=== PATIENT | female | born 1990 | race Caucasian/White ===

== ENCOUNTER 2022-10-13 19:56 | Inpatient (IN) ==
--- NOTE | 2022-10-13 21:53 | Emergency Department Note ---
Impression & Plan Altered mental status, Anemia ED Provider Note ED Provider Note NAME: ELVIRA VILLANUEVA AGE:31 SEX: Female : 1990 ARRIVES VIA: EMS INFORMANT: Patient ED PROVIDER(s): Christine Omalley DO CHIEF COMPLAINT: Altered mental status HPI: This is a 31-year-old female who presents emergency department via EMS after being referred here from the [facility] due to concern for persistent altered mental status. Patient is on multiple medications according to mom. Records from the [facility] states she was given Haldol and Ativan yesterday afternoon. Mother states she has had worsening altered mentation over the course of the last month. Patient answers questions with "game over". She denies pain or headache. PAST MEDICAL HISTORY:See Below PAST SURGICAL HISTORY:See Below FAMILY HISTORY:See Below SOCIAL HISTORY:See Below HOME MEDICATIONS:See Below ALLERGIES:See Below VITALS:See Below PHYSICAL EXAMINATION: GENERAL: alert, well nourished, no distress, non-toxic EYE EXAM: normal conjunctiva, PERRL and EOM's grossly intact OROPHARYNX: no exudate, no erythema, lips, buccal mucosa, and tongue normal and mucous membranes are moist NECK: supple, no nuchal rigidity, no adenopathy, non-tender LUNGS: Clear to auscultation. Normal chest wall mechanics, no w/r/r HEART: no murmurs, S1 normal and S2 normal ABDOMEN: abdomen soft, non-tender, normo-active bowel sounds, no masses, no rebound or guarding. BACK: Back is symmetrical on inspection and there is no deformity, no midline tenderness, no CVA tenderness. SKIN: no rashes, petechiae, orbruising UPPER EXTREMITIES: upper extremities are grossly normal. FROM, nml pulses b/l. LOWER EXTREMITIES: No pitting edema. FROM, nml pulses b/l. NEURO EXAM: cranial nerves II-XII grossly intact, normal speech, no facial droop,nogross weakness of arms, no gross weakness of legs. Gross sensation intact. No ataxia. Confused, pacing. Vital Signs: reviewed and remarkable Differential Diagnosis: Differential diagnoses includes but is not limited to toxic, metabolic, infectious, traumatic, cardiac, neurologic, hematologic, psychiatric and inflammatory etiologies. MEDICAL DECISION MAKING: This is a 31-year-old female referred here from the [facility] psychiatric facility due to concern for persistent confusion/altered mental status. Patient currently participating in inpatient mental health treatment at their facility. Patient here is obviously confused, mother concerned due to deterioration of her symptoms more recently as well as additional changes to medications. Labs drawn and sent, IV established, EKG performed and interpreted by me at bedside. Patient sent for CT head which was reassuring. Patient frequently attempting to leave her room, and was noted to have an abnormal and slightly shuffled gait. Patient would not otherwise follow commands for additional neuro testing. No signs or symptoms to suggest acute infection. Given consideration for poly pharmacy and ADRs of several of her medications, case discussed with hospitalist for additional inpatient evaluation and management with need for ongoing psychiatric treatment additionally. At this time of low suspicion for occult PROFESSIONAL SERVICES MANAGER infection, CVA, or ICH. Consultation(s): [] ER Treatment Provided: See below Diagnostics Interpreted By Me: -ECG: Normal sinus at 97, normal axis, normal intervals, nonspecific ST/T wave changes -Cardiac Monitoring: An order was placed for continuous cardiac monitoring. The monitor shows a rate of 88 with normal sinus rhythm. -Laboratory studies: As stated above and show below. -Imaging studies: CT head informally reviewed by me without any obvious intracranial hemorrhage Triage Nursing Note Reviewed Prior/Outside Records Reviewed -reviewed records from the rushing that accompanied patient Past Med/Surg History Social History Smoking Status: Never smoker Tobacco Type: Cigarettes Hx Alcohol Use: Yes Hx Substance Use: No Preferred Language: Indonesian Communication Ability: Impaired Regional Sales Director Required: No Beliefs That Will Affect Care: None Current Living Situation: Alone Feels Safe at Home: Yes Gender Identity: Female Allergies Allergies Allergy/AdvReac Type Severity Reaction Status Date / Time No Known Drug Allergies Allergy Unknown Verified 10/14/22 01:45 No Known Food Allergies Allergy Unknown Verified 10/14/22 01:45 Home Meds Home Medications Medication Instructions Recorded Confirmed acetaminophen 650 mg tablet 650 mg PO Q6H PRN Pain 10/14/22 10/14/22 levetiracetam 1,000 mg tablet 1,000 mg PO HS 10/14/22 10/14/22 risperidone 4 mg tablet 4 mg PO BID 10/14/22 10/14/22 trazodone 50 mg tablet 50 mg PO HS 10/14/22 10/14/22 venlafaxine 150 mg 150 mg PO DAILY 10/14/22 10/14/22 capsule,extended release 24 hr Results & Data (ED) Vital Signs Vital Signs - 24 hr 10/13/22 20:01 Temperature 37.1 C Temperature Source Oral Pulse Rate 73 Respiratory Rate 18 Respiratory Effort / Characteristics Non-Labored Respiratory Depth Normal Respiratory Pattern Regular Blood Pressure 163/113 H Blood Pressure Mean 129 Blood Pressure Position Lying Pulse Oximetry 95 Oxygen Delivery Method Room Air Sepsis Recent Fever Within 48 Hours No Sepsis New/Unexplained Change in Mental Status N/A Sepsis Action Taken by Nursing No Action Required Laboratory Data 10/13/22 21:58 10/13/22 21:58 Lab Results 10/13/22 10/13/22 10/13/22 Range/Units 21:58 21:58 21:58 WBC 7.16 (4.8-10.8) K/ul RBC 4.10 L (4.20-5.40) M/uL Hgb 9.5 L (12.0-16.0) g/dl Hct 29.9 L (37.0-47.0) % MCV 72.9 L (80.0-100.0) fL MCH 23.2 L (25.0-34.0) pg MCHC 31.8 L (32.0-36.0) g/dL RDW Std Deviation 40.9 (36.4-46.3) fL RDW Coeff of Neris 15.5 H (11.5-14.5) % Plt Count 405 H (130-400) K/uL MPV 9.4 (9.4-12.4) fL Immature Gran % (Auto) 0.4 % Neut % (Auto) 73.7 % Lymph % (Auto) 17.7 % Yell % (Auto) 6.8 % Eos % (Auto) 0.8 % Baso % (Auto) 0.6 % Neut # (Auto) 5.27 (1.40-6.50) K/uL Lymph # (Auto) 1.27 (1.2-3.4) K/uL Yell # (Auto) 0.49 (0.11-0.59) K/uL Eos # (Auto) 0.06 (0-0.50) K/uL Baso # (Auto) 0.04 (0-0.2) K/uL Immature Gran # (Auto) 0.03 (0.01-0.20) K/uL PT 10.8 (9.0-12.0) Seconds INR 1.0 (0.9-1.1) APTT 27.4 (21.0-31.0) Seconds PTT Ratio 1.0 Sodium 136 (136-145) mmol/L Potassium 3.7 (3.5-5.1) mmol/L Chloride 104 (98-107) mmol/L Carbon Dioxide 23 (21-32) mmol/L Anion Gap 9 (3-11) BUN 7 (6-23) mg/dl Creatinine 0.45 L (0.6-1.2) mg/dl Est Cr Clr Drug Dosing 176.7 ml/min Est GFR ( Amer) > 150.0 ml/min Est GFR (Non-Af Amer) 133.5 ml/min BUN/Creatinine Ratio 15.6 (10-20) Glucose 114 H (70-99(Fasting)) mg/dl Calcium 9.7 (8.6-10.3) mg/dl Magnesium 1.7 (1.7-2.4) mg/dl Total Bilirubin 0.3 (0.2-1.0) mg/dl AST 20 (13-39) U/L ALT 28 (7-52) U/L Alkaline Phosphatase 56 (34-104) U/L Troponin I High Sens 2.9 (0-14) pg/ml Total Protein 7.4 (6.0-8.3) gm/dl Albumin 4.5 (3.4-5.0) gm/dl Globulin 2.9 (2.5-4.0) gm/dl Albumin/Globulin Ratio 1.6 (0.9-2) TSH (0.300-4.500) uIu/ml Salicylates (3.0-30) mg/dl Ethyl Alcohol mg/dL (<10.0) mg/dl 10/13/22 10/13/22 10/13/22 Range/Units 21:58 21:58 21:58 WBC (4.8-10.8) K/ul RBC (4.20-5.40) M/uL Hgb (12.0-16.0) g/dl Hct (37.0-47.0) % MCV (80.0-100.0) fL MCH (25.0-34.0) pg MCHC (32.0-36.0) g/dL RDW Std Deviation (36.4-46.3) fL RDW Coeff of Neris (11.5-14.5) % Plt Count (130-400) K/uL MPV (9.4-12.4) fL Immature Gran % (Auto) % Neut % (Auto) % Lymph % (Auto) % Yell % (Auto) % Eos % (Auto) % Baso % (Auto) % Neut # (Auto) (1.40-6.50) K/uL Lymph # (Auto) (1.2-3.4) K/uL Yell # (Auto) (0.11-0.59) K/uL Eos # (Auto) (0-0.50) K/uL Baso # (Auto) (0-0.2) K/uL Immature Gran # (Auto) (0.01-0.20) K/uL PT (9.0-12.0) Seconds INR (0.9-1.1) APTT (21.0-31.0) Seconds PTT Ratio Sodium (136-145) mmol/L Potassium (3.5-5.1) mmol/L Chloride (98-107) mmol/L Carbon Dioxide (21-32) mmol/L Anion Gap (3-11) BUN (6-23) mg/dl Creatinine (0.6-1.2) mg/dl Est Cr Clr Drug Dosing ml/min Est GFR ( Amer) ml/min Est GFR (Non-Af Amer) ml/min BUN/Creatinine Ratio (10-20) Glucose (70-99(Fasting)) mg/dl Calcium (8.6-10.3) mg/dl Magnesium (1.7-2.4) mg/dl Total Bilirubin (0.2-1.0) mg/dl AST (13-39) U/L ALT (7-52) U/L Alkaline Phosphatase (34-104) U/L Troponin I High Sens (0-14) pg/ml Total Protein (6.0-8.3) gm/dl Albumin (3.4-5.0) gm/dl Globulin (2.5-4.0) gm/dl Albumin/Globulin Ratio (0.9-2) TSH 1.425 (0.300-4.500) uIu/ml Salicylates < 3.0 L (3.0-30) mg/dl Ethyl Alcohol mg/dL < 10.0 (<10.0) mg/dl Administered Medications Acetaminophen (Acetaminophen 325 Mg Tab) 650 mg PO Q4H PRN PRN Reason: Pain or Fever Stop: 11/13/22 06:08 Last Admin: 10/14/22 20:10 Dose: 650 mg Documented By: MT Olanzapine (Olanzapine Zydis 5 Mg Orally Dis. Tab) 5 mg PO BID JANEEN Stop: 11/13/22 20:59 Last Admin: 10/14/22 21:55 Dose: 5 mg Documented By: MT Propranolol HCl (Propranolol Hcl 10 Mg Tab) 10 mg PO BID JANEEN Stop: 11/13/22 20:59 Last Admin: 10/14/22 21:55 Dose: 10 mg Documented By: MT Discontinued Medications Clonazepam (Clonazepam 1 Mg Tab) 1 mg PO NOW STA Stop: 10/14/22 01:52 Last Admin: 10/14/22 01:54 Dose: 1 mg Documented By: GUERO Cyclobenzaprine HCl (Cyclobenzaprine Hcl 5 Mg Tab) 5 mg PO NOW STA Stop: 10/15/22 01:31 Last Admin: 10/15/22 01:56 Dose: 5 mg Documented By: MT Miscellaneous Information (Patient's Allergy Info Needs Entered) 1 each N/A Q30M [facility] Stop: 11/13/22 00:00 Last Admin: 10/14/22 09:29 Dose: Not Given Documented By: MT(2) Admin: 10/14/22 02:40 Dose: Not Given Documented By: Admin: 10/14/22 01:55 Dose: 1 each Documented By: Admin: 10/14/22 01:43 Dose: 1 each Documented By: GUERO Olanzapine (Olanzapine 10 Mg/2.1 Ml Sdv) 2.5 mg IM NOW STA Stop: 10/14/22 02:41 Last Admin: 10/14/22 02:58 Dose: Not Given Documented By: GUERO Olanzapine (Olanzapine 10 Mg/2.1 Ml Sdv) Confirm Administered Dose 10 mg IM .STK-MED ONE Stop: 10/14/22 02:47 Last Admin: 10/14/22 02:54 Dose: 2.5 mg Documented By: GUERO Olanzapine (Olanzapine 5 Mg Tablet) 5 mg PO BID JANEEN Stop: 11/13/22 09:29 Last Admin: 10/14/22 09:36 Dose: 5 mg Documented By: MT(2) Risperidone (Risperidone 2 Mg Tablet) 4 mg PO BID [facility] Stop: 11/13/22 08:59 Last Admin: 10/14/22 09:29 Dose: Not Given Documented By: MT(2) Venlafaxine HCl (Venlafaxine Hcl Xr 150 Mg Capxr) 150 mg PO DAILY [facility] Stop: 11/13/22 08:59 Last Admin: 10/14/22 09:19 Dose: 150 mg Documented By: MT(2) Discharge Plan Visit Data Chief Complaint: Altered Mental Status Stated Complaint: ALTERED MENTAL STATUS ED Provider: Christine Omalley Discharge Problem: Altered mental status, Anemia Patient Disposition: Admitted As Inpatient Discharge Instructions Interventions: ED Discharge Assessment Last Done: 10/14/22 19:57
[2022-10-13 22:26] LABS: Basophils # (auto) 0.04 K/uL (0-0.2); Basophils % (auto) 0.6 %; Eosinophils # (auto) 0.06 K/uL (0-0.50); Eosinophils % (auto) 0.8 %; Hematocrit (blood only) 29.9 % (37.0-47.0); Hemoglobin 9.5 g/dl (12.0-16.0); Immature Granulocytes # (auto) 0.03 K/uL (0.01-0.20); Immature Granulocytes % (auto) 0.4 %; Lymphocytes # (auto) 1.27 K/uL (1.2-3.4); Lymphocytes % (auto) 17.7 %; Mean Corpuscular Hemoglobin 23.2 pg (25.0-34.0); Mean Corpuscular Hgb Conc 31.8 g/dL (32.0-36.0); Mean Corpuscular Volume 72.9 fL (80.0-100.0); Mean Platelet Volume 9.4 fL (9.4-12.4); Monocytes # (auto) 0.49 K/uL (0.11-0.59); Monocytes % (auto) 6.8 %; Neutrophils # (auto) 5.27 K/uL (1.40-6.50); Neutrophils % (auto) 73.7 %; Platelet Count 405 K/uL (130-400); RDW Coefficient of Variation 15.5 % (11.5-14.5); RDW Standard Deviation 40.9 fL (36.4-46.3); White Blood Count 7.16 K/ul (4.8-10.8)
[2022-10-13 22:38] LABS: Alanine Aminotransferase 28 U/L (7-52); Albumin Globulin Ratio 1.6 (0.9-2); Albumin Level 4.5 gm/dl (3.4-5.0); Alkaline Phosphatase 56 U/L (34-104); Anion Gap 9 (3-11); Aspartate Aminotransferase 20 U/L (13-39); BUN Creatinine Ratio 15.6 (10-20); Bilirubin,Total 0.3 mg/dl (0.2-1.0); Blood Urea Nitrogen 7 mg/dl (6-23); Calcium 9.7 mg/dl (8.6-10.3); Carbon Dioxide 23 mmol/L (21-32); Chloride 104 mmol/L (98-107); Creatinine Clr Calc Pharmacy 176.7 ml/min; Est GFR (African American) > 150.0 ml/min; Est GFR (Non-African American) 133.5 ml/min; Globulin 2.9 gm/dl (2.5-4.0); Glucose 114 mg/dl (70-99(Fasting)); Magnesium 1.7 mg/dl (1.7-2.4); Potassium 3.7 mmol/L (3.5-5.1); Sodium 136 mmol/L (136-145); Total Protein 7.4 gm/dl (6.0-8.3)
[2022-10-13 22:44] LABS: Troponin I High Sensitivity 2.9 pg/ml (0-14)
[2022-10-13 22:49] LABS: Partial Thromboplastin Time 27.4 Seconds (21.0-31.0); Prothrombin Time 10.8 Seconds (9.0-12.0)
--- NOTE | 2022-10-13 23:47 | CT Scan Report ---
Exam(s): CT HEAD Without Contrast EXAM: CT Head Without Intravenous Contrast CLINICAL HISTORY: Reason for exam: ams. TECHNIQUE: Axial computed tomography images of the head/brain without intravenous contrast. CTDI is 35.07 mGy and DLP is 537.48 mGy-cm. Automated exposure control was utilized for the study. A dose lowering technique was utilized adhering to the principles of ALARA. COMPARISON: No relevant prior studies available. FINDINGS: No acute intracranial hemorrhage. No midline shift or mass effect. The territorial chance-white matter differentiation is maintained throughout. The ventricles and sulci are commensurate with age. The visualized orbits appear grossly unremarkable. The calvarium is intact. The visualized paranasal sinuses and mastoid air cells are grossly clear. IMPRESSION: No acute intracranial hemorrhage, midline shift, or mass effect. Electronically signed by: Jt Keys MD 10/13/22 23:46 PM
[2022-10-14] MEDS: Patient's ALLERGY Info needs ENTERED SCH ×4 (01:43→09:29)
[2022-10-14] MEDS ORDERED: clonazePAM 1 MG TAB PO STA (01:51)
[2022-10-14 02:23] LABS: Appearance Urine Clear (Clear); Bacteria Urine Automated Negative (Negative); Bilirubin Urine Negative (Negative); Blood Urine 3+ (Negative); Cast Urine Automated 0 /lpf (0-5); Color Urine Yellow; Glucose Urine UA Negative (Negative); Ketones Urine Negative (Negative); Leukocyte Esterase Urine Negative (Negative); Nitrite Urine Negative (Negative); Protein Urine Negative (Negative); RBC Urine Automated 0-4 /hpf (0-4); Specific Gravity Urine 1.003 (1.000-1.030); Urobilinogen Urine Negative (Negative); pH Urine 7.5 (4.5-7.5)
[2022-10-14] MEDS ORDERED: OLANZapine 10 MG/2.1 ML SDV IM STA (02:40)
[2022-10-14 02:41] LABS: Amphetamines+Metham, Urine Neg (Neg); Barbiturates, Urine Neg (Neg); Benzodiazepine, Urine Neg (Neg); Cocaine, Urine Neg (Neg); MDMA (Ecstacy), Urine Neg (Neg); Methadone, Urine Neg (Neg); Opiate, Urine Neg (Neg); Phencyclidine, Urine Neg (Neg)
[2022-10-14] MEDS ORDERED: OLANZapine 10 MG/2.1 ML SDV IM ONE (02:46)
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
[2022-10-14] MEDS ORDERED: cloNIDine HCL 0.1 MG TAB PO PRN (06:09)
[2022-10-14] MEDS ORDERED: POLYETHYLENE (MIRALAX) 17 GM PACK PO PRN (06:09)
[2022-10-14] MEDS ORDERED: ONDANSETRON INJ 2 MG/ML 2 ML VIAL IV PRN (06:09)
[2022-10-14] MEDS ORDERED: OLANZapine 10 MG/2.1 ML SDV IM PRN (06:09)
[2022-10-14] MEDS ORDERED: NITROGLYCERIN SL 0.4 MG/TAB TAB SL PRN (06:09)
[2022-10-14] MEDS ORDERED: risperiDONE 2 MG TABLET PO SCH (09:00)
[2022-10-14] MEDS ORDERED: VENLAFAXINE HCL XR 150 MG CAPXR PO SCH (09:00)
[2022-10-14] MEDS ORDERED: OLANZapine 5 MG TABLET PO SCH (09:30)
--- NOTE | 2022-10-14 10:49 | Electrocardiogram Report ---
Test Reason : Blood Pressure : / mmHG Vent. Rate : 097 BPM Atrial Rate : 097 BPM P-R Int : 136 ms QRS Dur : 086 ms QT Int : 364 ms P-R-T Axes : 019 056 011 degrees QTc Int : 462 ms Normal sinus rhythm Nonspecific ST abnormality No previous ECGs available Confirmed by Jose Guadalupe Lemus ([id number]) on 10/14/2022 10:49:33 AM Referred By: Elliot Silva Confirmed By:Carmelo Lemus
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
[2022-10-14 16:49] LABS: Lyme Ab IgG w/WB Rflx Negative (Negative); Lyme Ab IgM w/WB Rflx Negative (Negative)
[2022-10-14] MEDS: ACETAMINOPHEN 325 MG TAB PO PRN (20:10)
[2022-10-14] MEDS ORDERED: traZODone HCL 50 MG TAB PO SCH (21:00)
[2022-10-14] MEDS ORDERED: levETIRAcetam 500 MG TAB PO SCH (21:00)
[2022-10-14] MEDS: OLANZapine ZYDIS 5 MG ORALLY DIS. TAB PO SCH (21:55)
[2022-10-14] MEDS: PROPRANOLOL HCL 10 MG TAB PO SCH (21:55)
[2022-10-15] MEDS ORDERED: CYCLOBENZAPRINE HCL 5 MG TAB PO STA (01:30)
[2022-10-15] MEDS ORDERED: clonazePAM 1 MG TAB PO ONE (05:45)
[2022-10-15] MEDS: PROPRANOLOL HCL 10 MG TAB PO SCH ×2 (07:58→20:41)
[2022-10-15] MEDS: OLANZapine ZYDIS 5 MG ORALLY DIS. TAB PO SCH ×2 (07:58→20:41)
[2022-10-15 09:09] LABS: Hematocrit (blood only) 30.2 % (37.0-47.0); Hemoglobin 9.5 g/dl (12.0-16.0); Mean Corpuscular Hemoglobin 22.8 pg (25.0-34.0); Mean Corpuscular Hgb Conc 31.5 g/dL (32.0-36.0); Mean Corpuscular Volume 72.6 fL (80.0-100.0); Mean Platelet Volume 9.6 fL (9.4-12.4); Platelet Count 445 K/uL (130-400); RDW Coefficient of Variation 15.5 % (11.5-14.5); RDW Standard Deviation 40.8 fL (36.4-46.3); Red Blood Count 4.16 M/uL (4.20-5.40); White Blood Count 7.85 K/ul (4.8-10.8)
[2022-10-15 09:26] LABS: BUN Creatinine Ratio 17.2 (10-20); Calcium 9.1 mg/dl (8.6-10.3); Creatinine Clr Calc Pharmacy 124.3 ml/min; Est GFR (African American) 137.8 ml/min; Est GFR (Non-African American) 118.9 ml/min; Magnesium 1.7 mg/dl (1.7-2.4); Phosphorus 3.7 mg/dl (2.5-4.9); Potassium 3.9 mmol/L (3.5-5.1)
--- NOTE | 2022-10-15 10:11 | Hospitalist Progress Note ---
Date of Service October 15, 2022 Assessment & Plan (1) Altered mental status: (2) Psychotic disorder: (3) Anemia: Plan: 31-year-old female was brought in from [facility] with altered mental status. 1. Altered mental status: As per the mother, the patient is in [facility] for the last 20 days. She was 302'ed because she was shouting loud in the hotel. Mother thinks current medications are not working. Pt is afebrile, no white count. urinalysis - negative. CT of the head negative. Lyme dis. panel negative. Ceruloplasmin - ordered Possibly underlying psychiatric illness. Drug screen negative. Closely monitor. Psychiatry consulted for medication management. Discussed in detail w/ psychiatry over the phone. -Continue with zyprexa 5mg ODT BID -Discontinue Keppra, Risperidone, Effexor XR, trazodone -Start propranolol 10mg BID for suspected akathisia -May not leave AMA, would meet 302 criteria -Continue with 1-on-1 for safety given level of disorganization from psychosis 2. Hypertension situational?: Will place on clonidine p.r.n. Current BP 136/79 3. Anemia, microcytic: Iron deficiency anemia. Iron studies, vitamin B12, folate levels - reviewed iron supplement started B12 level - low/normal - started oral B12 supplemnet 4. Hypovitaminosis D - vit. D suppl. started DVT prophylaxis: SCDs for now. She is ambulatory. Admission and Anticipated Discharge Date Admission Date: October 14, 2022 Subjective Pt seen in follow up of altered mental status from [facility] Currently walking in her room, able to answer questions appropriately, then standing stiff One-on-one sitter present at the bedside Patient denies any fevers chills chest pain shortness of breath Denies abdominal pain, nausea vomiting Discussed with psychiatry Review of Systems Review of Systems: All systems reviewed & are unremarkable except as noted in Subjective Physical Exam Physical Exam: GENERAL: young F alert and awake, able to answer simple questions appropriately. Wants to constantly get up and walk. HEENT: Speech is low volume, but no obvious facial droop, atraumatic. NECK: No neck masses seen. CARDIOVASCULAR: S1 and S2 heard. Regular rate and rhythm. No murmur, no gallop. RESPIRATORY SYSTEM: Normal AP diameter. No accessory muscle use. No wheezing or crackles. ABDOMEN: Soft, bowel sounds present, nontender, no distention. NEURO: Awake and alert. Speech slow but fluent. No facial asymmetry noted. Moves extremities, ambulating. EXTREMITIES: No edema, no erythema. Results & Data Results & Data Vital Signs (Past 12 Hours) Vital Signs Temp Pulse Pulse Pulse Resp BP Pulse Ox 10/15/22 08:00 10/15/22 07:47 36.4 C L 85 18 155/91 H 99 10/15/22 07:14 88 10/15/22 04:00 36.8 C 79 18 149/91 H 99 10/14/22 23:22 91 H 10/14/22 22:56 36.7 C 88 18 132/85 96 O2 Del Method 10/15/22 08:00 Room Air 10/15/22 07:47 Room Air 10/15/22 07:14 10/15/22 04:00 Room Air 10/14/22 23:22 10/14/22 22:56 Room Air Laboratory Results 10/15/22 10/15/22 10/15/22 Range/Units 08:46 08:46 08:46 WBC 7.85 (4.8-10.8) K/ul RBC 4.16 L (4.20-5.40) M/uL Hgb 9.5 L (12.0-16.0) g/dl Hct 30.2 L (37.0-47.0) % MCV 72.6 L (80.0-100.0) fL MCH 22.8 L (25.0-34.0) pg MCHC 31.5 L (32.0-36.0) g/dL RDW Std Deviation 40.8 (36.4-46.3) fL RDW Coeff of Neris 15.5 H (11.5-14.5) % Plt Count 445 H (130-400) K/uL MPV 9.6 (9.4-12.4) fL Sodium 138 (136-145) mmol/L Potassium 3.9 (3.5-5.1) mmol/L Chloride 105 (98-107) mmol/L Carbon Dioxide 25 (21-32) mmol/L Anion Gap 8 (3-11) BUN 11 (6-23) mg/dl Creatinine 0.64 (0.6-1.2) mg/dl Est Cr Clr Drug Dosing 124.3 ml/min Est GFR ( Amer) 137.8 ml/min Est GFR (Non-Af Amer) 118.9 ml/min BUN/Creatinine Ratio 17.2 (10-20) Glucose 108 H (70-99(Fasting)) mg/dl Calcium 9.1 (8.6-10.3) mg/dl Phosphorus 3.7 (2.5-4.9) mg/dl Magnesium 1.7 (1.7-2.4) mg/dl Iron 25 L (35-150) mcg/dl TIBC 454 H (250-450) mcg/dl Unsaturated IBC 429 H (155-355) mcg/dl Transferrin % Sat 6 L (15-50) % Ferritin 3.0 L (8-388) ng/ml Vitamin B12 286 (180-914) pg/ml Folate 15.21 (>5.38) ng/ml Lyme Disease IgG Ab (Negative) Lyme Disease IgM Ab (Negative) 10/14/22 Range/Units 15:56 WBC (4.8-10.8) K/ul RBC (4.20-5.40) M/uL Hgb (12.0-16.0) g/dl Hct (37.0-47.0) % MCV (80.0-100.0) fL MCH (25.0-34.0) pg MCHC (32.0-36.0) g/dL RDW Std Deviation (36.4-46.3) fL RDW Coeff of Neris (11.5-14.5) % Plt Count (130-400) K/uL MPV (9.4-12.4) fL Sodium (136-145) mmol/L Potassium (3.5-5.1) mmol/L Chloride (98-107) mmol/L Carbon Dioxide (21-32) mmol/L Anion Gap (3-11) BUN (6-23) mg/dl Creatinine (0.6-1.2) mg/dl Est Cr Clr Drug Dosing ml/min Est GFR ( Amer) ml/min Est GFR (Non-Af Amer) ml/min BUN/Creatinine Ratio (10-20) Glucose (70-99(Fasting)) mg/dl Calcium (8.6-10.3) mg/dl Phosphorus (2.5-4.9) mg/dl Magnesium (1.7-2.4) mg/dl Iron (35-150) mcg/dl TIBC (250-450) mcg/dl Unsaturated IBC (155-355) mcg/dl Transferrin % Sat (15-50) % Ferritin (8-388) ng/ml Vitamin B12 (180-914) pg/ml Folate (>5.38) ng/ml Lyme Disease IgG Ab Negative (Negative) Lyme Disease IgM Ab Negative (Negative) Medications Administered Current Inpatient Medications Acetaminophen (Acetaminophen 325 Mg Tab) 650 mg PO Q4H PRN PRN Reason: Pain or Fever Stop: 11/13/22 06:08 Last Admin: 10/14/22 20:10 Dose: 650 mg Clonidine HCl (Clonidine Hcl 0.1 Mg Tab) 0.1 mg PO Q6H PRN PRN Reason: Hypertension Stop: 11/13/22 06:08 Cyanocobalamin (Cyanocobalamin (B-12) 500 Mcg Tablet) 500 mcg PO QAM [facility] Stop: 11/14/22 10:14 Ferrous Sulfate (Ferrous Sulfate 325 Mg Tab) 325 mg PO QAM [facility] Stop: 11/14/22 09:59 Magnesium Oxide (Magnesium Oxide 400 Mg Tab) 400 mg PO QAM [facility] Stop: 11/14/22 09:59 Nitroglycerin (Nitroglycerin Sl 0.4 Mg/Tab Tab) 0.4 mg SL UD PRN PRN Reason: Chest Pain Stop: 11/13/22 06:08 Olanzapine (Olanzapine 10 Mg/2.1 Ml Sdv) 2.5 mg IM Q4H PRN PRN Reason: Agitation Stop: 11/13/22 06:08 Olanzapine (Olanzapine Zydis 5 Mg Orally Dis. Tab) 5 mg PO BID [facility] Stop: 11/13/22 20:59 Last Admin: 10/15/22 07:58 Dose: 5 mg Ondansetron HCl (Ondansetron Inj 2 Mg/Ml 2 Ml Vial) 4 mg IV Q6H PRN PRN Reason: Nausea Stop: 11/13/22 06:08 Polyethylene Glycol (Polyethylene (Miralax) 17 Gm Pack) 17 gm PO DAILY PRN PRN Reason: Constipation Stop: 11/13/22 06:08 Propranolol HCl (Propranolol Hcl 10 Mg Tab) 10 mg PO BID [facility] Stop: 11/13/22 20:59 Last Admin: 10/15/22 07:58 Dose: 10 mg
[2022-10-15] MEDS: MAGNESIUM OXIDE 400 MG TAB PO SCH (10:35)
[2022-10-15] MEDS: FERROUS SULFATE 325 MG TAB PO SCH (10:35)
[2022-10-15] MEDS: CYANOCOBALAMIN (B-12) 500 MCG TABLET PO SCH (10:56)
[2022-10-15] MEDS: ACETAMINOPHEN 325 MG TAB PO PRN ×2 (14:02→20:41)
[2022-10-15] MEDS: LIDOCAINE 5% 1 PATCH TD SCH (16:28)
[2022-10-15] MEDS ORDERED: ERGOCALCIFEROL 50,000 UNITS 1250 MCG CAP PO SCH (18:15)
--- NOTE | 2022-10-15 20:07 | Psychiatric Progress Note ---
Date of Service October 15, 2022 Impression / Recommendations Impression 31 yo woman presenting with unspecified psychosis with differential including primary psychotic disorder versus romel versus depression with psychotic features versus 2/2 medical cause. Labwork not suggestive of Orlando's disease, low suspicion for substance-induced/withdrawal given prolonged [facility] admissions and negative UDS, no neurological changes (with exception of suspected risperidone-induced gait changes) to suggest anti-NMDA autoimmune encephalopathy or infectious process. Given viral illness in May 2022 consider Lyme panel, given eating disorder history monitor electrolytes/Vit D/folate level. Head CT done and read as having no acute abnormalities. TSH normal. Given her parents experience of quite dramatic improvement after benzodiazepine administration I do wonder about possibility for agitated/excited catatonia, especially since propranolol for akthasia as not seemed to impact her psychomotor agitation so will start ativan po trial and regardless should help with symptoms of psychomotor agitation if instead driven by romel. 10/15/2022: ongoing unspecified psychosis-romel seems most likely given grandiosity at times, ongoing paranoia toward her parents at times. Very poor sleep last night. Will titrate olanzapine to further target romel and psychosis. (1) Psychotic disorder: (2) Altered mental status: (3) Anemia: Plan -Increase olanzapine to 5mg qAM & 10mg HS -Ativan 1mg TID po -Propranolol 10mg BID po for possible akathisia -Discussed with Dr. Rodriguez Interval History Identifying Information 31 yo woman with history of alcohol use disorder in sustained remission, unspecified eating disorder, ADHD with possible stimulant use disorder and d epression admitted medically after being brought from the [facility] where she was on a 303 commitment for psychosis due to concern for change in consciousness. Psychiatry consulted for recommendations. Chief Complaint "I don't feel safe with them right now". Review of Systems Notes poor sleep, eating Subjective Subjective Patient was seen & assessed and interval progress reviewed. Ashley slept very l ittle overnight. Continues to be very restless including pacing all day in the halls. Took about 40 minute nap all day. Ate a lot at lunch. Per biztalk administrator made reference to Phani Rueda the famous movie director at times. She also gave me permission to speak with her parents who were both present. They describe noticing that she seemed to be much clearer after receiving a dose of ativan yesterday and then after getting Klonopin today. Reviewed questions they had regarding differential for unspecified psychosis and treatment plan. Her father noted she had what seems to be a possible acute dystonic reaction with neck flexion after receiving IM haldol while at the [facility]? Sounds like after this was when her risperidone dose was further increased. Physical Exam Psychiatric Orientation: alert, oriented to person and + guarded Apperance: appropriately dressed and + disheveled Eye Contact: + fair eye contact Motor Behavior: + EPS (parkinson-like shuffling gait) Speech: + abnormal rate/rhythm/volume of speech (soft, brief) Affect: + flat affect Mood: + anxious mood Thought Process: + looseness of associations and + incoherent thought process Thought Content: + paranoid and + delusions Suicidal Thoughts: denies suicidal thoughts Homicidal Thoughts: denies homicidal thoughts Hallucinations: + auditory hallucinations (seems to be possibly responding to internal stimuli) Cognition: remote memory grossly intact; + recent memory not intact and + attention not intact Insight: + severely impaired insight Judgment: + severely impaired judgement Vital Signs (Past 24 Hours) Last Vital Signs Temp 36.6 C 10/15/22 19:16 Pulse 76 10/15/22 19:16 Resp 18 10/15/22 19:16 BP 136/79 10/15/22 19:16 Pulse Ox 99 10/15/22 19:16 O2 Del Method Room Air 10/15/22 19:16 Results & Data ([facility]) Laboratory Results Laboratory Results - last 24 hr 10/15/22 10/15/22 10/15/22 08:46 08:46 08:46 WBC 7.85 RBC 4.16 L Hgb 9.5 L Hct 30.2 L MCV 72.6 L MCH 22.8 L MCHC 31.5 L RDW Std Deviation 40.8 RDW Coeff of Neris 15.5 H Plt Count 445 H MPV 9.6 [address] Smr Path Cons Sodium 138 Potassium 3.9 Chloride 105 Carbon Dioxide 25 Anion Gap 8 BUN 11 Creatinine 0.64 Est Cr Clr Drug Dosing 124.3 Est GFR ( Amer) 137.8 Est GFR (Non-Af Amer) 118.9 BUN/Creatinine Ratio 17.2 Glucose 108 H Calcium 9.1 Phosphorus 3.7 Magnesium 1.7 Iron 25 L TIBC 454 H Unsaturated IBC 429 H Transferrin % Sat 6 L Ferritin 3.0 L Vitamin B12 286 25-OH Vitamin D Total Folate 15.21 10/15/22 10/15/22 08:46 08:46 WBC RBC Hgb Hct MCV MCH MCHC RDW Std Deviation RDW Coeff of Neris Plt Count MPV Peripher Smr Path Cons Sodium Potassium Chloride Carbon Dioxide Anion Gap BUN Creatinine Est Cr Clr Drug Dosing Est GFR ( Amer) Est GFR (Non-Af Amer) BUN/Creatinine Ratio Glucose Calcium Phosphorus Magnesium Iron TIBC Unsaturated IBC Transferrin % Sat Ferritin Vitamin B12 25-OH Vitamin D Total 15.7 L Folate Current Inpatient Medications Current Inpatient Medications: Current Inpatient Medications Acetaminophen (Acetaminophen 325 Mg Tab) 650 mg PO Q4H PRN PRN Reason: Pain or Fever Stop: 11/13/22 06:08 Last Admin: 10/15/22 14:02 Dose: 650 mg Clonidine HCl (Clonidine Hcl 0.1 Mg Tab) 0.1 mg PO Q6H PRN PRN Reason: Hypertension Stop: 11/13/22 06:08 Cyanocobalamin (Cyanocobalamin (B-12) 500 Mcg Tablet) [facility] Stop: 11/14/22 10:14 Last Admin: 10/15/22 10:56 Dose: 500 mcg Ergocalciferol (Ergocalciferol 50,000 Units 1250 Mcg Cap) 50,000 units PO Q7D@0900 [facility] Stop: 11/14/22 08:59 Last Admin: 10/15/22 18:33 Dose: 50,000 units Ferrous Sulfate (Ferrous Sulfate 325 Mg Tab) 325 [facility] Stop: 11/14/22 09:59 Last Admin: 10/15/22 10:35 Dose: 325 mg Lidocaine (Lidocaine 5% 1 Patch) 1 patch TD [facility] Stop: 11/14/22 14:59 Last Admin: 10/15/22 16:28 Dose: 1 patch Magnesium Oxide (Magnesium Oxide 400 Mg Tab) 400 mg PO [facility] Stop: 11/14/22 09:59 Last Admin: 10/15/22 10:35 Dose: 400 mg Miscellaneous (Remove Lidoderm Patch) 1 each N/A DAILY@2100 [facility] Stop: 11/14/22 20:59 Nitroglycerin (Nitroglycerin Sl 0.4 Mg/Tab Tab) 0.4 mg SL UD PRN PRN Reason: Chest Pain Stop: 11/13/22 06:08 Olanzapine (Olanzapine 10 Mg/2.1 Ml Sdv) 2.5 mg IM Q4H PRN PRN Reason: Agitation Stop: 11/13/22 06:08 Last Admin: 10/15/22 16:57 Dose: 2.5 mg Olanzapine (Olanzapine Zydis 5 Mg Orally Dis. Tab) 5 mg PO QAM [facility] Stop: 11/15/22 08:59 Olanzapine (Olanzapine Zydis 10 Mg Orally Dis. Tab) 10 mg PO HS [facility] Stop: 11/14/22 20:59 Ondansetron HCl (Ondansetron Inj 2 Mg/Ml 2 Ml Vial) 4 mg IV Q6H PRN PRN Reason: Nausea Stop: 11/13/22 06:08 Polyethylene Glycol (Polyethylene (Miralax) 17 Gm Pack) 17 gm PO DAILY PRN PRN Reason: Constipation Stop: 11/13/22 06:08 Propranolol HCl (Propranolol Hcl 10 Mg Tab) 10 mg PO BID JANEEN Stop: 11/13/22 20:59 Last Admin: 10/15/22 07:58 Dose: 10 mg
[2022-10-15] MEDS: LORazepam 1 MG TAB PO SCH (20:41)
[2022-10-15] MEDS ORDERED: tiZANidine HCL 4 MG TABLET PO STA (23:24)
[2022-10-16] MEDS: MELATONIN 3 MG TAB PO PRN ×2 (02:32→21:22)
[2022-10-16 07:32] LABS: Hematocrit (blood only) 29.1 % (37.0-47.0); Hemoglobin 9.1 g/dl (12.0-16.0); Mean Corpuscular Hemoglobin 23.1 pg (25.0-34.0); Mean Corpuscular Hgb Conc 31.3 g/dL (32.0-36.0); Mean Corpuscular Volume 73.9 fL (80.0-100.0); Mean Platelet Volume 9.7 fL (9.4-12.4); Platelet Count 391 K/uL (130-400); RDW Coefficient of Variation 15.7 % (11.5-14.5); RDW Standard Deviation 41.5 fL (36.4-46.3); Red Blood Count 3.94 M/uL (4.20-5.40); White Blood Count 5.98 K/ul (4.8-10.8)
[2022-10-16 07:52] LABS: Magnesium 1.6 mg/dl (1.7-2.4)
[2022-10-16 08:04] LABS: Est GFR (African American) 149.5 ml/min; Phosphorus 4.9 mg/dl (2.5-4.9)
[2022-10-16] MEDS: OLANZapine ZYDIS 5 MG ORALLY DIS. TAB PO SCH ×2 (09:35→10:25)
[2022-10-16] MEDS: CYANOCOBALAMIN (B-12) 500 MCG TABLET PO SCH (09:35)
[2022-10-16] MEDS: PROPRANOLOL HCL 10 MG TAB PO SCH ×2 (09:35→21:21)
[2022-10-16] MEDS: MAGNESIUM OXIDE 400 MG TAB PO SCH (09:35)
[2022-10-16] MEDS: LIDOCAINE 5% 1 PATCH TD SCH (09:35)
[2022-10-16] MEDS: FERROUS SULFATE 325 MG TAB PO SCH (09:35)
[2022-10-16] MEDS: LORazepam 1 MG TAB PO SCH ×2 (09:35→14:34)
[2022-10-16] MEDS ORDERED: OLANZapine ZYDIS 5 MG ORALLY DIS. TAB PO ONE (10:12)
--- NOTE | 2022-10-16 11:14 | Psychiatric Progress Note ---
Date of Service October 16, 2022 Impression / Recommendations Impression 31 yo woman presenting with unspecified psychosis with differential including primary psychotic disorder versus romel versus depression with psychotic features versus 2/2 medical cause. Labwork not suggestive of Orlando's disease, low suspicion for substance-induced/withdrawal given prolonged [facility] admissions and negative UDS, no neurological changes (with exception of suspected risperidone-induced gait changes) to suggest anti-NMDA autoimmune encephalopathy or infectious process. Given viral illness in May 2022 consider Lyme panel, given eating disorder history monitor electrolytes/Vit D/folate level. Head CT done and read as having no acute abnormalities. TSH normal. Given her parents experience of quite dramatic improvement after benzodiazepine administration I do wonder about possibility for agitated/excited catatonia, especially since propranolol for akthasia as not seemed to impact her psychomotor agitation so will start ativan po trial and regardless should help with symptoms of psychomotor agitation if instead driven by romel. 10/16/2022: ongoing unspecified psychosis-romel seems most likely given grandiosity at times and ongoing poor sleep even with higher doses of olanzapine and scheduled lorazepam, ongoing paranoia toward her parents at times. Switch from lorazepam to clonazepam given history of beneficial response after prior clonazepam dose given in the ED. The patient remains hospitalized on a completed 302 involuntary commitment, which if not extended, will on 10/21/2022 at 1244. This patient must remain on safety precautions with a 1-on-1 and is unable to leave the hospital AMA. (1) Psychotic disorder: (2) Altered mental status: (3) Anemia: Plan -Continue 1-on-1 -On a completed 302 warrant -Continue with olanzapine to 5mg qAM & 10mg HS -Klonopin 1mg BID -Propranolol 10mg BID po for possible akathisia -Psychiatric bed search will begin once patient is medically clear Interval History Identifying Information 31 yo woman with history of alcohol use disorder in sustained remission, unspecified eating disorder, ADHD with possible stimulant use disorder and depression admitted medically after being brought from the [facility] where she was on a 303 commitment for psychosis due to concern for change in consciousness. Psychiatry consulted for recommendations. Chief Complaint "If you can stop being f*ucking freaks". Review of Systems Notes barely any sleep, eating Subjective Subjective Patient was seen & assessed and interval progress reviewed. Wrote a note about asking valerianorikatja Tang for her journal back and at the end it stated "P.S. stop the black magic". 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 Remains restless and wanting to wander the halls. Mid-morning attempted to elope resulting in a Code Alvarez. On my assessment she states her desire to leave stating "I need to go". Discussed plan for inpatient psychiatric hospitalization which she feels she doesn't need. Stated "can't I just go". Discussed this was not an option and that 302 commitment would be pursued. Asked if there was anything else we could do to help her she said "just leave me alone". She was re-assessed in the afternoon. Much calmer but still wanting to pace and walk. Stated she's struggling with thoughts of wanting to kill her parents because she believes they killed her and wants to know when the thoughts will go away. Discussed hope that the medications will help reduce these thoughts. Has not napped at all today. Ate lunch. She gave permission for me to speak with her parents. Did duty to warn and informed her mother and father face to face of statement she made, they had heard her make similar statements and understand she remains paranoid. Her mother wondered about trial of Klonopin as this seemed to work the best of anything she's been given. Discussed potential to consider addition of [employer] tomorrow if she continues with poor sleep. Physical Exam Psychiatric Orientation: alert, oriented to person and + guarded Apperance: appropriately dressed and + disheveled Eye Contact: + fair eye contact Motor Behavior: + EPS (parkinson-like shuffling gait, but less severe today) Speech: + abnormal rate/rhythm/volume of speech (soft, brief) Affect: + flat affect Mood: + anxious mood, + irritable mood and + angry mood Thought Process: + looseness of associations and + incoherent thought process Thought Content: + paranoid and + delusions (grandiose about celebrity connections) Suicidal Thoughts: denies suicidal thoughts Homicidal Thoughts: denies homicidal thoughts Hallucinations: + auditory hallucinations (seems to be possibly responding to internal stimuli) Cognition: remote memory grossly intact; + recent memory not intact and + attention not intact Insight: + severely impaired insight Judgment: + severely impaired judgement Vital Signs (Past 24 Hours) Last Vital Signs Temp 36.5 C 10/16/22 07:40 Pulse 76 10/16/22 07:40 Resp 16 10/16/22 07:40 BP 120/80 10/16/22 07:40 Pulse Ox 98 10/16/22 07:40 O2 Del Method Room Air 10/16/22 07:40 Results & Data ([facility]) Laboratory Results Laboratory Results - last 24 hr 10/15/22 10/15/22 10/16/22 08:46 08:46 06:28 WBC 5.98 RBC 3.94 L Hgb 9.1 L Hct 29.1 L MCV 73.9 L MCH 23.1 L MCHC 31.3 L RDW Std Deviation 41.5 RDW Coeff of Neris 15.7 H Plt Count 391 MPV 9.7 Peripher Smr Path Cons Sodium Potassium Chloride Carbon Dioxide Anion Gap BUN Creatinine Est Cr Clr Drug Dosing Est GFR ( Amer) Est GFR (Non-Af Amer) BUN/Creatinine Ratio Glucose Calcium Phosphorus Magnesium Ceruloplasmin 25-OH Vitamin D Total 15.7 L 10/16/22 10/16/22 06:28 06:28 WBC RBC Hgb Hct MCV MCH MCHC RDW Std Deviation RDW Coeff of Neris Plt Count MPV Peripher Smr Path Cons Sodium 139 Potassium 4.0 Chloride 106 Carbon Dioxide 26 Anion Gap 7 BUN 16 Creatinine 0.50 L Est Cr Clr Drug Dosing 159.0 Est GFR ( Amer) 149.5 Est GFR (Non-Af Amer) 129.0 BUN/Creatinine Ratio 32.0 H Glucose 92 Calcium 9.0 Phosphorus 4.9 D Magnesium 1.6 L Ceruloplasmin Pending 25-OH Vitamin D Total Current Inpatient Medications Current Inpatient Medications: Current Inpatient Medications Acetaminophen (Acetaminophen 325 Mg Tab) 650 mg PO Q4H PRN PRN Reason: Pain or Fever Stop: 11/13/22 06:08 Last Admin: 10/15/22 20:41 Dose: 650 mg Clonidine HCl (Clonidine Hcl 0.1 Mg Tab) 0.1 mg PO Q6H PRN PRN Reason: Hypertension Stop: 11/13/22 06:08 Cyanocobalamin (Cyanocobalamin (B-12) 500 Mcg Tablet) 500 mcg PO QAM JANEEN Stop: 11/14/22 10:14 Last Admin: 10/16/22 09:35 Dose: 500 mcg Ergocalciferol (Ergocalciferol 50,000 Units 1250 Mcg Cap) 50,000 units PO Q7D@0900 [facility] Stop: 11/14/22 08:59 Last Admin: 10/15/22 18:33 Dose: 50,000 units Ferrous Sulfate (Ferrous Sulfate 325 Mg Tab) 325 mg PO QAM [facility] Stop: 11/14/22 09:59 Last Admin: 10/16/22 09:35 Dose: 325 mg Lidocaine (Lidocaine 5% 1 Patch) 1 patch TD QAM [facility] Stop: 11/14/22 14:59 Last Admin: 10/16/22 09:35 Dose: 1 patch Lorazepam (Lorazepam 1 Mg Tab) 1 mg PO TID [facility] Stop: 11/14/22 20:59 Last Admin: 10/16/22 09:35 Dose: 1 mg Magnesium Oxide (Magnesium Oxide 400 Mg Tab) 400 mg PO QAM [facility] Stop: 11/14/22 09:59 Last Admin: 10/16/22 09:35 Dose: 400 mg Melatonin (Melatonin 3 Mg Tab) 3 mg PO HS PRN PRN Reason: Sleep Stop: 11/15/22 02:23 Last Admin: 10/16/22 02:32 Dose: 3 mg Miscellaneous (Remove Lidoderm Patch) 1 each N/A DAILY@2100 [facility] Stop: 11/14/22 20:59 Last Admin: 10/15/22 20:47 Dose: 1 each Nitroglycerin (Nitroglycerin Sl 0.4 Mg/Tab Tab) 0.4 mg SL UD PRN PRN Reason: Chest Pain Stop: 11/13/22 06:08 Olanzapine (Olanzapine 10 Mg/2.1 Ml Sdv) 2.5 mg IM Q4H PRN PRN Reason: Agitation Stop: 11/13/22 06:08 Last Admin: 10/15/22 16:57 Dose: 2.5 mg Olanzapine (Olanzapine Zydis 5 Mg Orally Dis. Tab) 5 mg PO QAM [facility] Stop: 11/15/22 08:59 Last Admin: 10/16/22 10:25 Dose: 5 mg Olanzapine (Olanzapine Zydis 10 Mg Orally Dis. Tab) 10 mg PO HS [facility] Stop: 11/14/22 20:59 Last Admin: 10/15/22 20:44 Dose: 10 mg Ondansetron HCl (Ondansetron Inj 2 Mg/Ml 2 Ml Vial) 4 mg IV Q6H PRN PRN Reason: Nausea Stop: 11/13/22 06:08 Polyethylene Glycol (Polyethylene (Miralax) 17 Gm Pack) 17 gm PO DAILY PRN PRN Reason: Constipation Stop: 11/13/22 06:08 Last Admin: 10/16/22 09:36 Dose: 17 gm Propranolol HCl (Propranolol Hcl 10 Mg Tab) 10 mg PO BID [facility] Stop: 11/13/22 20:59 Last Admin: 10/16/22 09:35 Dose: 10 mg
--- NOTE | 2022-10-16 16:30 | Hospitalist Progress Note ---
Date of Service October 16, 2022 Assessment & Plan (1) Altered mental status: (2) Psychotic disorder: (3) Anemia: (4) Vitamin D deficiency: Plan 31yo pt admitted from the [facility] with altered mental status believed to be attributed to polypharmacy. AMS/Mood disorder/Psychotic Disorder -on zyprexa and klonipin -following with psychiatry- appreciate psych recs -Keppra, Risperidone, Effexor XR, trazodone have all been discontinued. -continue propranolol 10mg BID for suspected akathisia -would like to leave [place] but meets criteria for 302. -appears medically stable for discharge to psych services -continue 1:1 Anemia -continue iron supplementation -continue b12 supplement Vit D def -continue supplementation Diet: regular DVT prophylaxis: SCDs Code Status: full code Dispo: d/c to psych services once medically stable. Admission and Anticipated Discharge Date Admission Date: October 14, 2022 Subjective Pt seen after a code mccain. Was combative previously but was laying on the bed at the time she was seen. States that she wants to leave, would like to go home but not with her parents. States she does not have a place to live. Review of Systems Review of Systems: Unobtainable due to mental health condition Physical Exam Physical Exam: General: Alert, laying on the bed in no acute distress Skin: No noted rashes or bruises Psych: lethargic Neuro: slowed gaits HEENT: NC/AT CV: RRR, Normal s1, s2. No murmurs appreciated Resp: Breath sounds clear bilaterally, no increased effort of breathing. No crackles/rhonchi/rales. Abdomen: Soft, nontender, nondistended. No guarding. No organomegaly appreciated. Extremities: No edema in lower extremities bilaterally. Results & Data Results & Data Vital Signs (Past 12 Hours) Vital Signs Temp Pulse Pulse Resp BP Pulse Ox O2 Del Method 10/16/22 15:12 89 10/16/22 07:40 36.5 C 76 16 120/80 98 Room Air 10/16/22 07:26 76
[2022-10-16] MEDS: ACETAMINOPHEN 325 MG TAB PO PRN (21:21)
[2022-10-16] MEDS: clonazePAM 1 MG TAB PO SCH (21:22)
[2022-10-17] MEDS ORDERED: KETOROLAC TROMETHAMINE 15 MG/ML VIAL IV ONE (02:12)
[2022-10-17] MEDS ORDERED: tiZANidine HCL 4 MG TABLET PO STA (02:17)
[2022-10-17] MEDS ORDERED: IBUPROFEN 200 MG TAB PO PRN (02:17)
[2022-10-17] MEDS: ACETAMINOPHEN 325 MG TAB PO PRN (07:39)
[2022-10-17] MEDS: FERROUS SULFATE 325 MG TAB PO SCH (07:40)
[2022-10-17] MEDS: clonazePAM 1 MG TAB PO SCH ×2 (07:40→19:54)
[2022-10-17] MEDS: OLANZapine ZYDIS 5 MG ORALLY DIS. TAB PO SCH (07:40)
[2022-10-17] MEDS: PROPRANOLOL HCL 10 MG TAB PO SCH ×2 (07:40→19:55)
[2022-10-17] MEDS: CYANOCOBALAMIN (B-12) 500 MCG TABLET PO SCH (07:41)
[2022-10-17] MEDS: MAGNESIUM OXIDE 400 MG TAB PO SCH (07:41)
[2022-10-17 08:07] LABS: Basophils # (auto) 0.05 K/uL (0-0.2); Basophils % (auto) 0.7 %; Eosinophils # (auto) 0.27 K/uL (0-0.50); Eosinophils % (auto) 3.9 %; Hematocrit (blood only) 29.8 % (37.0-47.0); Hemoglobin 9.2 g/dl (12.0-16.0); Immature Granulocytes # (auto) 0.04 K/uL (0.01-0.20); Immature Granulocytes % (auto) 0.6 %; Lymphocytes # (auto) 2.07 K/uL (1.2-3.4); Lymphocytes % (auto) 30.1 %; Mean Corpuscular Hemoglobin 23.2 pg (25.0-34.0); Mean Corpuscular Hgb Conc 30.9 g/dL (32.0-36.0); Mean Corpuscular Volume 75.3 fL (80.0-100.0); Mean Platelet Volume 9.6 fL (9.4-12.4); Monocytes # (auto) 0.73 K/uL (0.11-0.59); Monocytes % (auto) 10.6 %; Neutrophils # (auto) 3.72 K/uL (1.40-6.50); Neutrophils % (auto) 54.1 %; Platelet Count 430 K/uL (130-400); RDW Coefficient of Variation 15.6 % (11.5-14.5); RDW Standard Deviation 42.4 fL (36.4-46.3); Red Blood Count 3.96 M/uL (4.20-5.40); White Blood Count 6.88 K/ul (4.8-10.8)
[2022-10-17 08:22] LABS: Calcium 8.8 mg/dl (8.6-10.3); Creatinine Clr Calc Pharmacy 154.4 ml/min; Est GFR (African American) 147.6 ml/min; Est GFR (Non-African American) 127.3 ml/min; Magnesium 1.7 mg/dl (1.7-2.4); Potassium 4.1 mmol/L (3.5-5.1)
--- NOTE | 2022-10-17 09:59 | Hospitalist Progress Note ---
Date of Service October 17, 2022 Assessment & Plan (1) Altered mental status: (2) Psychotic disorder: (3) Anemia: (4) Vitamin D deficiency: Plan 31yo pt admitted from the [facility] with altered mental status believed to be attributed to polypharmacy. Pt is currently medically stable. AMS/Mood disorder/Psychotic Disorder -on zyprexa and klonipin -following with psychiatry- appreciate psych recs -Keppra, Risperidone, Effexor XR, trazodone have all been discontinued. -continue propranolol 10mg BID for suspected akathisia -would like to leave AMA but meets criteria for 302. -appears medically stable for discharge to psych services -continue 1:1 Anemia -stable, medically clear for discharge -continue iron supplementation -continue b12 supplement Vit D def -stable, medically clear for discharge -continue supplementation Diet: regular DVT prophylaxis: SCDs Code Status: full code Dispo: d/c to psych services once medically stable. Admission and Anticipated Discharge Date Admission Date: October 14, 2022 Subjective Pt seen this AM. Was walking around her room pleasantly. Sitter present. States that she is happy she will be going home. Was tearful at one point as she said thinking about getting out of the hospital made her happy. Denied any acute concerns otherwise when asked. Review of Systems Review of Systems: Unobtainable due to mental health condition Physical Exam Physical Exam: General: Alert. No acute distress Skin: No noted rashes or bruises Psych: Labile mood and affect Neuro: stiff-like posture HEENT: NC/AT. CV: RRR, Normal s1, s2. No murmurs appreciated Resp: Breath sounds clear bilaterally, no increased effort of breathing. No crackles/rhonchi/rales. Abdomen: Soft, nontender, nondistended. No guarding. No organomegaly appreciated. Results & Data Results & Data Vital Signs (Past 12 Hours) Vital Signs Temp Pulse Pulse Pulse Resp BP BP 10/17/22 07:20 36.4 C L 89 18 120/77 10/17/22 07:19 36.5 C 85 16 117/75 10/17/22 03:25 36.6 C 72 18 121/73 10/16/22 22:04 80 10/16/22 23:27 36.6 C 64 15 117/75 10/16/22 23:08 10/16/22 22:00 Pulse Ox Pulse Ox O2 Del Method O2 Del Method 10/17/22 07:20 99 Room Air 10/17/22 07:19 98 Room Air 10/17/22 03:25 99 Room Air 10/16/22 22:04 10/16/22 23:27 98 Room Air 10/16/22 23:08 Room Air 10/16/22 22:00 99 Room Air
[2022-10-17] MEDS: LIDOCAINE 5% 1 PATCH TD SCH (10:39)
[2022-10-17] MEDS ORDERED: OLANZapine ZYDIS 5 MG ORALLY DIS. TAB PO PRN (14:07)
--- NOTE | 2022-10-17 16:24 | Psychiatric Progress Note ---
Date of Service October 17, 2022 Impression / Recommendations Impression 31 yo woman presenting with unspecified psychosis with differential including primary psychotic disorder versus romel versus depression with psychotic features versus 2/2 medical cause. Labwork not suggestive of Orlando's disease, low suspicion for substance-induced/withdrawal given prolonged [facility] admissions and negative UDS, no neurological changes (with exception of suspected risperidone-induced gait changes) to suggest anti-NMDA autoimmune encephalopathy or infectious process. Given viral illness in May 2022 consider Lyme panel, given eating disorder history monitor electrolytes/Vit D/folate level. Head CT done and read as having no acute abnormalities. TSH normal. Given her parents experience of quite dramatic improvement after benzodiazepine administration I do wonder about possibility for agitated/excited catatonia, especially since propranolol for akthasia as not seemed to impact her psychomotor agitation so will start ativan po trial and regardless should help with symptoms of psychomotor agitation if instead driven by romel. 10/17/2022: ongoing unspecified psychosis-romel remains most likely given grandiosity at times and ongoing poor sleep even with higher doses of olanzapine and scheduled lorazepam, ongoing paranoia toward her parents at times. No side effects from olanzapine and seems to be tolerating well so will continue with dose titration in effort to increase sleep. EPS symptoms from risperidone of shuffling gait seems to be improving significantly since discontinuation. Still with flat affect that likely represents ongoing negativism from risperidone. The patient remains hospitalized on a completed 302 involuntary commitment, which if not extended, will on 10/21/2022 at 1244. This patient must remain on safety precautions with a 1-on-1 and is unable to leave the hospital AMA. (1) Psychotic disorder: (2) Altered mental status: (3) Anemia: Plan -Continue 1-on-1 -On a completed 302 commitment which will on 10/21/2022 at 1244 -Increase olanzapine to 5mg qAM & 15mg HS -Klonopin 1mg BID -Propranolol 10mg BID po for possible akathisia -Psychiatric bed search ongoing Interval History Identifying Information 31 yo woman with history of alcohol use disorder in sustained remission, unsp ecified eating disorder, ADHD with possible stimulant use disorder and depression admitted medically after being brought from the [facility] where she was on a 303 commitment for psychosis due to concern for change in consciousness. Psychiatry consulted for recommendations. Chief Complaint "What do I need to do to leave?". Review of Systems Notes very poor sleep, eating well Subjective Subjective Patient was seen & assessed and interval progress reviewed. Slept about 3 hours last night interrupted and took an 1.5 hour nap during the day. Remains restlessness and eager to walk but has done well at times in her room today with doing yoga and showering. At times more agitated when attempting to leave which required re-direction. Got zyprexa prn dose. At times today happier to see her dad but at other times more irritable. Physical Exam Psychiatric Orientation: alert, oriented to person and + guarded Apperance: appropriately dressed Eye Contact: + fair eye contact Motor Behavior: + EPS (parkinson-like shuffling gait almost unnoticeable today, improving signific) Speech: + abnormal rate/rhythm/volume of speech (soft, brief) Affect: + flat affect Mood: + anxious mood and + irritable mood Thought Process: + looseness of associations and + incoherent thought process Thought Content: + paranoid and + delusions (grandiose about celebrity connections) Suicidal Thoughts: denies suicidal thoughts Homicidal Thoughts: denies homicidal thoughts Hallucinations: + auditory hallucinations (seems to be possibly responding to internal stimuli) Cognition: remote memory grossly intact; + recent memory not intact and + attention not intact Insight: + severely impaired insight Judgment: + severely impaired judgement Vital Signs (Past 24 Hours) Last Vital Signs Temp 36.4 C L 10/17/22 07:20 Pulse 89 10/17/22 07:20 Resp 18 10/17/22 07:20 BP 120/77 10/17/22 07:20 Pulse Ox 99 10/17/22 07:20 O2 Del Method Room Air 10/17/22 07:20 Results & Data ([facility]) Laboratory Results Laboratory Results - last 24 hr 10/16/22 10/17/22 10/17/22 06:28 07:41 07:41 WBC 6.88 RBC 3.96 L Hgb 9.2 L Hct 29.8 L MCV 75.3 L MCH 23.2 L MCHC 30.9 L RDW Std Deviation 42.4 RDW Coeff of Neris 15.6 H Plt Count 430 H MPV 9.6 Immature Gran % (Auto) 0.6 Neut % (Auto) 54.1 Lymph % (Auto) 30.1 [place] % (Auto) 10.6 Eos % (Auto) 3.9 Baso % (Auto) 0.7 Neut # (Auto) 3.72 Lymph # (Auto) 2.07 [place] # (Auto) 0.73 H Eos # (Auto) 0.27 Baso # (Auto) 0.05 Immature Gran # (Auto) 0.04 Sodium 137 Potassium 4.1 Chloride 105 Carbon Dioxide 26 Anion Gap 6 BUN 13 Creatinine 0.52 L Est Cr Clr Drug Dosing 154.4 Est GFR ( Amer) 147.6 Est GFR (Non-Af Amer) 127.3 BUN/Creatinine Ratio 25.0 H Glucose 84 Calcium 8.8 Magnesium 1.7 Ceruloplasmin 21 Current Inpatient Medications Current Inpatient Medications: Current Inpatient Medications Acetaminophen (Acetaminophen 325 Mg Tab) 650 mg PO Q4H PRN PRN Reason: Pain or Fever Stop: 11/13/22 06:08 Last Admin: 10/17/22 07:39 Dose: 650 mg Clonazepam (Clonazepam 1 Mg Tab) 1 mg PO BID [facility] Stop: 11/15/22 20:59 Last Admin: 10/17/22 07:40 Dose: 1 mg Clonidine HCl (Clonidine Hcl 0.1 Mg Tab) 0.1 mg PO Q6H PRN PRN Reason: Hypertension Stop: 11/13/22 06:08 Cyanocobalamin (Cyanocobalamin (B-12) 500 Mcg Tablet) 500 mcg PO [facility] Stop: 11/14/22 10:14 Last Admin: 10/17/22 07:41 Dose: 500 mcg Ergocalciferol (Ergocalciferol 50,000 Units 1250 Mcg Cap) 50,000 units PO Q7D@0900 [facility] Stop: 11/14/22 08:59 Last Admin: 10/15/22 18:33 Dose: 50,000 units Ferrous Sulfate (Ferrous Sulfate 325 Mg Tab) 325 mg PO [facility] Stop: 11/14/22 09:59 Last Admin: 10/17/22 07:40 Dose: 325 mg Ibuprofen (Ibuprofen 200 Mg Tab) 200 mg PO Q6H PRN PRN Reason: Mild Pain (Scale 1, 2, 3) Stop: 11/16/22 02:16 Last Admin: 10/17/22 02:30 Dose: 200 mg Lidocaine (Lidocaine 5% 1 Patch) 1 patch TD [facility] Stop: 11/14/22 14:59 Last Admin: 10/17/22 10:39 Dose: 1 patch Magnesium Oxide (Magnesium Oxide 400 Mg Tab) 400 mg PO QAM [facility] Stop: 11/14/22 09:59 Last Admin: 10/17/22 07:41 Dose: 400 mg Melatonin (Melatonin 3 Mg Tab) 3 mg PO HS PRN PRN Reason: Sleep Stop: 11/15/22 02:23 Last Admin: 10/16/22 21:22 Dose: 3 mg Miscellaneous (Remove Lidoderm Patch) 1 each N/A DAILY@2100 [facility] Stop: 11/14/22 20:59 Last Admin: 10/16/22 21:22 Dose: 1 each Olanzapine (Olanzapine 10 Mg/2.1 Ml Sdv) 2.5 mg IM Q4H PRN PRN Reason: Agitation Stop: 11/13/22 06:08 Last Admin: 10/15/22 16:57 Dose: 2.5 mg Olanzapine (Olanzapine Zydis 5 Mg [place]ally Dis. Tab) [facility] [place]: 11/15/22 08:59 Last Admin: 10/17/22 07:40 Dose: 5 mg Olanzapine (Olanzapine Zydis 10 Mg Orally Dis. Tab) 10 mg PO HS [facility] Stop: 11/14/22 20:59 Last Admin: 10/16/22 21:21 Dose: 10 mg Olanzapine (Olanzapine Zydis 5 Mg Orally Dis. Tab) 5 mg PO BID PRN PRN Reason: Agitation Stop: 11/16/22 20:59 Last Admin: 10/17/22 14:52 Dose: 5 mg Ondansetron HCl (Ondansetron Inj 2 Mg/Ml 2 Ml Vial) 4 mg IV Q6H PRN PRN Reason: Nausea Stop: 11/13/22 06:08 Polyethylene Glycol (Polyethylene (Miralax) 17 Gm Pack) 17 gm PO DAILY PRN PRN Reason: Constipation Stop: 11/13/22 06:08 Last Admin: 10/16/22 09:36 Dose: 17 gm Propranolol HCl (Propranolol Hcl 10 Mg Tab) 10 mg PO BID [facility] Stop: 11/13/22 20:59 Last Admin: 10/17/22 07:40 Dose: 10 mg
[2022-10-17] MEDS: MELATONIN 3 MG TAB PO PRN (19:54)
[2022-10-17] MEDS ORDERED: OLANZapine ZYDIS 5 MG ORALLY DIS. TAB PO SCH (21:00)
[2022-10-18] MEDS ORDERED: clonazePAM 0.5 MG TAB PO STA (01:44)
[2022-10-18] MEDS: FERROUS SULFATE 325 MG TAB PO SCH (10:21)
[2022-10-18] MEDS: CYANOCOBALAMIN (B-12) 500 MCG TABLET PO SCH (10:21)
[2022-10-18] MEDS: clonazePAM 1 MG TAB PO SCH (10:21)
[2022-10-18] MEDS: LIDOCAINE 5% 1 PATCH TD SCH (10:21)
[2022-10-18] MEDS: MAGNESIUM OXIDE 400 MG TAB PO SCH (10:22)
[2022-10-18] MEDS: OLANZapine ZYDIS 5 MG ORALLY DIS. TAB PO SCH (10:22)
[2022-10-18] MEDS: PROPRANOLOL HCL 10 MG TAB PO SCH (10:23)
--- NOTE | 2022-10-18 11:54 | Hospitalist Progress Note ---
Date of Service October 18, 2022 Assessment & Plan (1) Altered mental status: Plan: 31yo pt admitted from the [facility] with altered mental status believed to be attributed to polypharmacy. Pt is currently medically stable. AMS/Mood disorder/Psychotic Disorder on zyprexa and klonipin Keppra, Risperidone, Effexor XR, trazodone have all been discontinued. on propranolol 10mg BID for suspected akathisia Plan for 3 [place] today. Anemia hb stable in 9's. To continue iron supplementation and b12 supplement Vit D def stable, medically clear for discharge on supplementation Diet: regular DVT prophylaxis: SCDs (2) Psychotic disorder: (3) Anemia: (4) Vitamin D deficiency: Admission and Anticipated Discharge Date Admission Date: October 14, 2022 Subjective walking in hallways singing songs says eating fine slept better no chest pain or sob no nausea moving bowels and bladder ok afebrile says mood is better Review of Systems Review of Systems: As above Physical Exam Eyes: EOMI Neck: trachea midline, no thyromegaly Respiratory: normal respiratory effort, lungs clear to auscultation Cardiovascular: RRR, no murmur, no edema Gastrointestinal (Abdomen): Bs present no distension Neurologic: alert and awake ambulating ok speech clear no facial droop Results & Data Results & Data Vital Signs (Past 12 Hours) Vital Signs Temp Pulse Pulse Resp BP Pulse Ox O2 Del Method 10/18/22 07:20 36.5 C 82 18 115/76 98 Room Air 10/18/22 04:16 36.6 C 82 18 117/78 100 Room Air 10/18/22 00:01 36.7 C 74 18 118/74 99 Room Air
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
--- NOTE | 2022-10-18 13:29 | Psychiatric Progress Note ---
Date of Service October 18, 2022 Impression / Recommendations Impression as per Dr. caldera: 31 yo woman presenting with unspecified psychosis with differential including primary psychotic disorder versus romel versus depression with psychotic features versus 2/2 medical cause. Labwork not suggestive of Orlando's disease, low suspicion for substance-induced/withdrawal given prolonged [facility] admissions and negative UDS, no neurological changes (with exception of suspected risperidone-induced gait changes) to suggest anti-NMDA autoimmune encephalopathy or infectious process. Given viral illness in May 2022 consider Lyme panel, given eating disorder history monitor electrolytes/Vit D/folate level. Head CT done and read as having no acute abnormalities. TSH normal. The patient remains hospitalized on a completed 302 involuntary commitment, which if not extended, will on 10/21/2022 at 1244. This patient must remain on safety precautions with a 1-on-1 and is unable to leave the hospital AMA. (1) Psychotic disorder: (2) Altered mental status: Plan presentation consistent with agitated catatonia and can be seen in psychotic and mood disorders transfer to to continue on 302 commitment. She will undoubtedly require extended involuntary commitment Ativan 1 mg prn X1 to assist with transition patient is not appropriate for visitors on unit at this time given severity of psychosis and actually has shown increase agitation due to overstimulation and paranoia toward father liaison updated family on plan. Interval History Identifying Information 31 yo woman with history of alcohol use disorder in sustained remission, unspecified eating disorder, ADHD with possible stimulant use disorder and depression admitted medically after being brought from the [facility] where she was on a 303 commitment for psychosis due to concern for change in consciousness. Psychiatry consulted for recommendations by Dr. Caldera on 10/14/22. She is currently on a 302 involuntary commitment. Chief Complaint "I need to go." Review of Systems Notes patient unable to complete due to mental status, per aide is eating, drinking, and toileting. Subjective Subjective Patient was seen & assessed and interval progress reviewed with nursing and 1-on-1. Patient slept a little better overnight and is more redirectible today. She remains paranoid re: her father. Tearful, lacks insight into need for inpatient care. Wants to walk in hallway but not aggressive or attempting to elope. Initial consult and records from [facility] reviewed: Patient was in [facility] and admit from ED there to [facility] on 09/17 for delusions that father is Putin and that she is to [facility] [place]. Hx of stimulant meds (Adderall XR up to 40 mg for some time but last rx Vyvanse 40 mg daily in july). Patient was started on Effexor XR and trazodone, loaded with Keppra, and rapidly titrated to 8 mg Risperdal at the [facility] with increase in E PS, especially following increase and additional prns (Haldol). Has been clearly slowly on Klonopin and Zyprexa. Physical Exam Psychiatric alert, guarded, very disorganized, tearful, some shuffling but mainly confused, cooperative/redirectible to wheelchair. Remains paranoid. Unable to further participate in exam. Vital Signs (Past 24 Hours) Last Vital Signs Temp 36.5 C 10/18/22 07:20 Pulse 82 10/18/22 07:20 Resp 18 10/18/22 07:20 BP 115/76 10/18/22 07:20 Pulse Ox 98 10/18/22 07:20 O2 Del Method Room Air 10/18/22 07:20 [facility] Current Inpatient Medications Current Inpatient Medications: Current Inpatient Medications Acetaminophen (Acetaminophen 325 Mg Tab) 650 mg PO Q4H PRN PRN Reason: Pain or Fever Stop: 11/13/22 06:08 Last Admin: 10/17/22 07:39 Dose: 650 mg Clonazepam (Clonazepam 1 Mg Tab) 1 mg PO BID [facility] Stop: 11/15/22 20:59 Last Admin: 10/18/22 10:21 Dose: 1 mg Clonidine HCl (Clonidine Hcl 0.1 Mg Tab) 0.1 mg PO Q6H PRN PRN Reason: Hypertension Stop: 11/13/22 06:08 Cyanocobalamin (Cyanocobalamin (B-12) 500 Mcg Tablet) 500 mcg PO QAM JANEEN Stop: 11/14/22 10:14 Last Admin: 10/18/22 10:21 Dose: 500 mcg Ergocalciferol (Ergocalciferol 50,000 Units 1250 Mcg Cap) 50,000 units PO Q7D@0900 [facility] Stop: 11/14/22 08:59 Last Admin: 10/15/22 18:33 Dose: 50,000 units Ferrous Sulfate (Ferrous Sulfate 325 Mg Tab) 325 mg PO QAM [facility] Stop: 11/14/22 09:59 Last Admin: 10/18/22 10:21 Dose: 325 mg Ibuprofen (Ibuprofen 200 Mg Tab) 200 mg PO Q6H PRN PRN Reason: Mild Pain (Scale 1, 2, 3) Stop: 11/16/22 02:16 Last Admin: 10/17/22 02:30 Dose: 200 mg Lidocaine ([facility] 5% 1 Patch) [facility] Stop: 11/14/22 14:59 Last Admin: 10/18/22 10:21 Dose: 1 patch Lorazepam (Lorazepam 1 Mg Tab) 1 mg PO ONE ONE Stop: 10/18/22 14:31 Magnesium Oxide (Magnesium Oxide 400 Mg Tab) [facility] Stop: 11/14/22 09:59 Last Admin: 10/18/22 10:22 Dose: 400 mg Melatonin (Melatonin 3 Mg Tab) 3 mg PO HS PRN PRN Reason: Sleep Stop: 11/15/22 02:23 Last Admin: 10/17/22 19:54 Dose: 3 mg Miscellaneous (Remove Lidoderm Patch) 1 each N/A DAILY@2100 [facility] Stop: 11/14/22 20:59 Last Admin: 10/17/22 19:55 Dose: 1 each Olanzapine (Olanzapine 10 Mg/2.1 Ml Sdv) 2.5 mg IM Q4H PRN PRN Reason: Agitation Stop: 11/13/22 06:08 Last Admin: 10/15/22 16:57 Dose: 2.5 mg Olanzapine (Olanzapine Zydis 5 Mg Orally Dis. Tab) 5 mg PO QAM [facility] Stop: 11/15/22 08:59 Last Admin: 10/18/22 10:22 Dose: 5 mg Olanzapine (Olanzapine Zydis 5 Mg Orally Dis. Tab) 5 mg PO BID PRN PRN Reason: Agitation Stop: 11/16/22 20:59 Last Admin: 10/17/22 14:52 Dose: 5 mg Olanzapine (Olanzapine Zydis 5 Mg Orally Dis. Tab) 15 mg PO HS [facility] Stop: 11/16/22 20:59 Last Admin: 10/17/22 19:54 Dose: 15 mg Ondansetron HCl (Ondansetron Inj 2 Mg/Ml 2 Ml Vial) 4 mg IV Q6H PRN PRN Reason: Nausea Stop: 11/13/22 06:08 Polyethylene Glycol (Polyethylene (Miralax) 17 Gm Pack) 17 gm PO DAILY PRN PRN Reason: Constipation Stop: 11/13/22 06:08 Last Admin: 10/16/22 09:36 Dose: 17 gm Propranolol HCl (Propranolol Hcl 10 Mg Tab) 10 mg PO BID JANEEN Stop: 11/13/22 20:59 Last Admin: 10/18/22 10:23 Dose: 10 mg
[2022-10-18] MEDS ORDERED: LORazepam 1 MG TAB PO ONE (14:30)
== END 2022-10-18 15:09 | DRG 885 ==
LOC: ED 19:56 → EDINP 10-14 01:59 → SUATTDRO 10-14 01:59 → 2N 10-14 19:57

== ENCOUNTER 2022-10-18 13:21 | Inpatient (IN) ==
[2022-10-18] MEDS ORDERED: ALUMINUM/MAGNESIUM SUSP 30 ML UDC PO PRN (13:46)
[2022-10-18] MEDS ORDERED: MAGNESIUM HYDROXIDE SUSP 30 ML UDC PO PRN (13:46)
[2022-10-18] MEDS ORDERED: hydrOXYzine HCl 25 MG TAB PO PRN ×2 (13:46)
[2022-10-18] MEDS ORDERED: BISMUTH SUBSALICYLATE LIQD 236 ML PO PRN (13:46)
[2022-10-18] MEDS ORDERED: SODIUM CHLORIDE 0.65% NA SOLN 45 ML (OCEAN) PRN (13:46)
[2022-10-18] MEDS ORDERED: LORazepam 2 MG/1 ML VIAL IM PRN (14:44)
[2022-10-18] MEDS: LORazepam 1 MG TAB PO PRN ×2 (19:29→23:37)
[2022-10-18] MEDS: clonazePAM 1 MG TAB PO SCH (21:21)
[2022-10-19] MEDS: LORazepam 1 MG TAB PO PRN ×3 (03:51→23:03)
[2022-10-19] MEDS: CYANOCOBALAMIN (B-12) 500 MCG TABLET PO SCH (07:21)
[2022-10-19] MEDS: clonazePAM 1 MG TAB PO SCH (07:21)
[2022-10-19] MEDS: FERROUS SULFATE 325 MG TAB PO SCH (07:22)
[2022-10-19] MEDS ORDERED: OLANZapine ZYDIS 5 MG ORALLY DIS. TAB PO SCH ×2 (09:00→22:00)
[2022-10-19] MEDS ORDERED: ZOLPIDEM TARTRATE 5 MG TAB PO STA (09:12)
--- NOTE | 2022-10-19 10:55 | History & Physical ---
Date of Service October 19, 2022 Impression / Recommendations Impression 31 yo female with hx of ADHD, ETOH use and eating disorder, presents after extended stay at [facility] with AMS requiring medical admission for additional work up and clearance. Patient is extremely disorganized yet also cunning wtih regards to attempted elopement and approach to males. She seems hypersexual with no filter and it seems that hypomanic symptoms may have been confused as ADHD and/or stimulant may have contributed to romel and ultimate decline. Her "akathisia" and lack of sleep are also consistent with romel and seems to have better response to benzos than higher potency antipsychotics. Will need to confirm family hx of bipolar disorder. (1) Psychotic disorder: Plan The patient was admitted to the [facility] ([facility]) on q15 min checks (behavioral with suicide precautions) for safety. The patient will participate in group, recreational, and milieu therapies and will be offered additional individual and family sessions as clinically appropriate. MNPR due to severity of psychosis. Continue elopement precautions. Patient needs to sleep--will attempt to provide therapeutic rest this am with 1 time dose of Ambien. Patient has used Lunesta successfully in past--will check response to Ambien and formulary status in case needs trial this pm. Patient does not have rigidity, no shuffling gait or significant tremor but affect somewhat parkinsonian--shift dosing of Zyprexa to hs started yesterday Ativan seems more effective than Klonopin so will convert to Ativan 2 mg TID consider lithium trial, patient was unable to consent today Inventory Assets Strengths: intelligent, high functioning at baseline, family support Needs: improve insight into her condition, confirm outpatient providers Suicide Risk Level Suicide Risk Level: Low (q15 min observation checks) Risk Factors Assessment : Yes Do You Have Access To A Gun?: No Health Problems: No Mental Health Diagnoses: Yes Previous Attempt: No Previous Psychiatric Hospitalization: No Protective Factors Assessment : No Responsible for Young Children: No Employed: No Supportive Family: Yes Psychiatric History Identifying Data 31 yo woman with history of alcohol use disorder in sustained remission, unspec ified eating disorder, ADHD with possible stimulant use disorder and depression admitted medically after being brought from the [facility] where she was on a 303 commitment for psychosis due to concern for change in consciousness. Psychiatry consulted for recommendations by Dr. Caldera on 10/14/22. She was admitted to our unit from the medical floor on 10/18/22 15:10 on a 302 involuntary commitment. Chief Complaint "I want to sleep. I want Santos's" History of Present Illness As per 10/18/2022 progress note: Patient was seen & assessed and interval progress reviewed with nursing and 1-on-1. Patient slept a little better overnight and is more redirectible today. She remains paranoid re: her father. Tearful, lacks insight into need for inpatient care. Wants to walk in hallway but not aggressive or attempting to elope. Initial consult and records from [facility] reviewed: Patient was in [facility] and admit from ED there to [facility] on 09/17 for delusions that father is Putin and that she is to [facility]. Hx of stimulant meds (Adderall XR up to 40 mg for some time but last rx Vyvanse 40 mg daily in july). Patient was started on Effexor XR and trazodone, loaded with Keppra, and rapidly titrated to 8 mg Risperdal at the [facility] with increase in EPS, especially following increase and additional prns (Haldol). Has been clearly slowly on Klonopin and Zyprexa. Since arriving to the unit she remains restless and delusion. A staff member was injured closing the unit door as she attempted to elope unexpectedly. She slept 2.5 hrs (broken). She asked to "make out" with male staff. Talks about having sex with Bandar Tang. Other delusional content included comments about killing parents. She wandered in to group but was only quiet for a brief period then got up and danced. Past Psychiatric History Current Psychiatric Diagnosis: unspecified psychosis; ADHD, hx of eating disorder Previous Psych Admissions: [facility] as per HPI Do You Have Access To A Gun?: No History of Previous Suicide Attempt: No Describe Attempts in the Past: no Past Medication Trials: Vyvanse in 07/2022, previously up to 40 mg Adderall XR daily for at least 1 year, Risperdal (EPS), Lunesta, Keppra, Effexor XR, trazodone. Allergies Allergy/AdvReac Type Severity Reaction Status Date / Time No Known Drug Allergies Allergy Unknown Verified 10/14/22 01:45 No Known Food Allergies Allergy Unknown Verified 10/14/22 01:45 Home Medications Medication Instructions Recorded Confirmed Type clonazepam 1 mg tablet 1 mg PO BID #10 tabs 10/18/22 Rx cyanocobalamin (vitamin B-12) 500 500 mcg PO QAM #30 tabs 10/18/22 Rx mcg tablet ergocalciferol (vitamin D2) 1,250 50,000 unit PO Q7D@0900 #8 caps 10/18/22 Rx mcg (50,000 unit) capsule ferrous sulfate 325 mg (65 mg 325 mg PO QAM #30 tabs 10/18/22 Rx iron) tablet,delayed release olanzapine 5 mg disintegrating 5 mg PO BID PRN agitation #5 tabs 10/18/22 Rx tablet olanzapine 5 mg disintegrating 5 mg PO QAM #5 tabs 10/18/22 Rx tablet olanzapine 5 mg disintegrating 15 mg PO HS #5 tabs 10/18/22 Rx tablet Family History Family History of: Bipolar (sister, rx Abilify--will need confirmation) Alcohol History Hx of Alcohol Use Over the Past 12 Months: No AUDIT Total Score: 0 Smoking Use Have You Smoked or Used Tobacco Products in the Last 30 Days: No Smoking Status: Never smoker Substance History Hx of Prescription Med Misuse Over the Past 12 Months: Yes (possibly adderall p er family) Hx of Over the Counter Med Misuse Over the Past 12 Months: No Hx of Inhalent Misuse Over the Past 12 Months: No Hx of Organic Substance Use Over the Past 12 Months: No Hx of Illegal Substances/Street Drug Use Over Past 12 Months: No Problems as a Result of Past Substance Use: None Identified Personal History Living Arrangements: Apartment Living Arrangements Comments: Pt has apartment and lives alone, however became paranoid about apartment and left to stay in a hotel 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) Marital Status: Single Number Of Children: 0 Beliefs That Will Affect Care: None Current Legal Problems: No Additional Comments: patient is unable to explore trauma history Patient History Medical History ADHD Altered mental status Anemia Vitamin D deficiency Social History Smoking Status: Never smoker Tobacco Type: Cigarettes Hx Alcohol Use: Yes Hx Substance Use: No Preferred Language: Swedish Communication Ability: Effective Law Tutor Required: No Beliefs That Will Affect Care: None Current Living Situation: Alone Feels Safe at Home: Declines to Answer Gender Identity: Female Assistive Devices: None Review of Systems Review of Systems: Unobtainable due to cognitive status Physical Exam Psychiatric: Orientation: alert and oriented to place Apperance: + disheveled Eye Contact: + poor eye contact walks around unit, doesn't appear to have akathisia but rather wandering confused due to thought disorganization. slowed Affect: + blunted affect Mood: + anxious mood Thought Process: + thought process not linear or logical Thought Content: + preoccupation (leaving) and + delusions Suicidal Thoughts: denies suicidal thoughts unreliable doesn't appear to be responding to internal stimuli Cognition: + attention not intact Estimated Intelligence: consistent with education level Insight: + severely impaired insight Judgment: + severely impaired judgement Vital Signs (Past 24 Hours): Last Vital Signs Temp 36.6 C 10/19/22 06:41 Pulse 80 10/19/22 06:41 Resp 18 10/19/22 06:41 BP 103/71 10/19/22 06:41 Pulse Ox 98 10/18/22 15:21 O2 Del Method Room Air 10/18/22 15:21 Exam Statement: A physical exam was performed in the medical floor by Dr. Paredes for the purposes of medical clearance. I accept that physical as correct and adequate for the purposes of the inpatient physical exam. Results & Data (U) Laboratory Results see medical admission, reviewed. Current Inpatient Medications Current Inpatient Medications: Current Inpatient Medications Acetaminophen (Acetaminophen 325 Mg Tab) 650 mg PO Q4H PRN PRN Reason: Headache or Minor Fever Stop: 11/17/22 13:45 Al Hydrox/Mg Hydrox/Simethicone (Aluminum/Magnesium Susp 30 Ml Udc) 30 ml PO Q4H PRN PRN Reason: GI Upset Stop: 11/17/22 13:45 Bismuth Subsalicylate (Bismuth Subsalicylate Liqd 236 Ml) 15 ml PO PRN PRN PRN Reason: Loose Stool Stop: 11/17/22 13:45 Clonazepam (Clonazepam 1 Mg Tab) 1 mg PO BID JANEEN Stop: 11/17/22 20:59 Last Admin: 10/19/22 07:21 Dose: 1 mg Cyanocobalamin (Cyanocobalamin (B-12) 500 Mcg Tablet) 500 mcg PO QAM [facility] Stop: 11/18/22 08:59 Last Admin: 10/19/22 07:21 Dose: 500 mcg Ergocalciferol (Ergocalciferol 50,000 Units 1250 Mcg Cap) 50,000 units PO Q7D@0900 [facility] Stop: 11/24/22 08:59 Ferrous Sulfate (Ferrous Sulfate 325 Mg Tab) 325 mg PO QAM [facility] Stop: 11/18/22 08:59 Last Admin: 10/19/22 07:22 Dose: 325 mg Hydroxyzine HCl (Hydroxyzine Hcl 25 Mg Tab) 50 mg PO HSZ PRN PRN Reason: Insomnia Stop: 11/17/22 13:45 Hydroxyzine HCl (Hydroxyzine Hcl 25 Mg Tab) 25 mg PO Q4H PRN PRN Reason: Anxiety Stop: 11/17/22 13:45 Lorazepam (Lorazepam 1 Mg Tab) 1 mg PO Q4 PRN PRN Reason: Anxiety/Agitation Stop: 11/17/22 14:43 Last Admin: 10/19/22 10:21 Dose: 1 mg Lorazepam (Lorazepam 2 Mg/1 Ml Vial) 2 mg IM Q6 PRN PRN Reason: Agitation Stop: 11/17/22 14:43 Magnesium Hydroxide (Magnesium Hydroxide Susp 30 Ml Udc) 30 ml PO DAILY PRN PRN Reason: Constipation Stop: 11/17/22 13:45 Olanzapine (Olanzapine Zydis 10 Mg Orally Dis. Tab) 20 mg PO HS JANEEN Stop: 11/17/22 21:59 Last Admin: 10/18/22 21:21 Dose: 20 mg Olanzapine (Olanzapine Zydis 5 Mg Orally Dis. Tab) 5 mg PO QAM [facility] Stop: 11/18/22 08:59 Last Admin: 10/19/22 07:22 Dose: 5 mg Sodium Chloride (Sodium Chloride 0.65% Na Soln 45 Ml ([place])) 1 - 2 sprays NA PRN PRN PRN Reason: Nasal Dryness/Congestion Stop: 11/17/22 13:45
[2022-10-19] MEDS: LORazepam 1 MG TAB PO SCH ×3 (12:45→21:11)
[2022-10-19] MEDS ORDERED: chlorproMAZINE HCL 25 MG TAB PO PRN (14:07)
[2022-10-19] MEDS: ACETAMINOPHEN 325 MG TAB PO PRN (18:57)
[2022-10-19] MEDS ORDERED: ESZOPICLONE 1 MG TAB PO SCH (22:00)
[2022-10-20] MEDS: LORazepam 1 MG TAB PO PRN ×2 (05:48→16:31)
[2022-10-20] MEDS: FERROUS SULFATE 325 MG TAB PO SCH (08:19)
[2022-10-20] MEDS: LORazepam 1 MG TAB PO SCH (08:19)
[2022-10-20] MEDS: CYANOCOBALAMIN (B-12) 500 MCG TABLET PO SCH (08:19)
[2022-10-20] MEDS: ACETAMINOPHEN 325 MG TAB PO PRN ×3 (10:49→22:55)
[2022-10-20] MEDS ORDERED: chlorproMAZINE HCL 25 MG TAB PO PRN (12:05)
[2022-10-20] MEDS: LITHIUM CARBONATE SLOW REL 300 MG TAB PO SCH ×2 (12:24→21:01)
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
[2022-10-20] MEDS: clonazePAM 1 MG TAB PO SCH ×2 (14:16→21:02)
[2022-10-20] MEDS: ESZOPICLONE 1 MG TAB PO SCH (21:02)
[2022-10-21] MEDS: LORazepam 1 MG TAB PO PRN (00:50)
[2022-10-21] MEDS: CYANOCOBALAMIN (B-12) 500 MCG TABLET PO SCH (08:11)
[2022-10-21] MEDS: LITHIUM CARBONATE SLOW REL 300 MG TAB PO SCH ×2 (08:11→20:04)
[2022-10-21] MEDS: FERROUS SULFATE 325 MG TAB PO SCH (08:11)
[2022-10-21] MEDS: clonazePAM 1 MG TAB PO SCH ×3 (08:12→20:04)
[2022-10-21] MEDS ORDERED: haloperidoL 0.5 MG TAB PO STA (09:49)
[2022-10-21] MEDS ORDERED: haloperidoL 5 MG TAB PO ONE (09:53)
--- NOTE | 2022-10-21 14:35 | Psychiatric Progress Note ---
Date of Service October 21, 2022 Impression / Recommendations Impression 31 yo female with hx of ADHD, ETOH use and eating disorder, presents after extended stay at [facility] with AMS requiring medical admission for additional work up and clearance. Patient is extremely disorganized yet also cunning wtih regards to attempted elopement and approach to males. She seems hypersexual with no filter and it seems that hypomanic symptoms may have been confused as ADHD and/or stimulant may have contributed to romel and ultimate decline. Her "akathisia" and lack of sleep are also consistent with romel and seems to have better response to benzos than higher potency antipsychotics. Family hx of mood disorder. Patient has had episodic worsening of anxiety with paranoia under times of stress. Imp: patient did tolerate zoom with father and cousin but laughed inappropriately and refused to have mother present due to paranoia. (1) Bipolar disorder, curr episode mixed, severe, with psychotic features: Plan 10/21/22: 303 granted. Will shift Zyprexa earlier in case causing paradoxical activation at night and further from prn Haldol which would benefit patient at hs. Will likely titrate [facility] tomorrow so as not to delay therapeutic effect and hopefully target level 1.0 for first blood draw. 10/20/22: Risks/benefits/alternatives reviewed lithium for mood stabilization. will need to further review longer term risks associated with lithium when patient more organized. Will start 300 mg lithobid in am, 600 mg pm with level on day 5. Continue Zyprexa taper. Ativan for prn use only--Klonopin 1 mg TID for now, hopefully taper more when therapeutic on lithium. 303 paperwork filed. Increase Lunesta and back up thorazine. 10/19/22: The patient was admitted to the [facility] ([facility] inpatient mental health unit) on q15 min checks (behavioral with suicide precautions) for safety. The patient will participate in group, recreational, and milieu therapies and will be offered additional individual and family sessions as clinically appropriate. MNPR due to severity of psychosis. Continue elopement precautions. Patient needs to sleep--will attempt to provide therapeutic rest this am with 1 time dose of Ambien. Patient has used Lunesta successfully in past--will check response to Ambien and formulary status in case needs trial this pm. Patient does not have rigidity, no shuffling gait or significant tremor but affect somewhat parkinsonian--shift dosing of Zyprexa to hs started yesterday Ativan seems more effective than Klonopin so will convert to Ativan 2 mg TID consider lithium trial, patient was unable to consent today Inventory Assets Strengths: intelligent, high functioning at baseline, family support Needs: improve insight into her condition, confirm outpatient providers Suicide Risk Level Suicide Risk Level: Low (q15 min observation checks) Risk Factors Assessment : Yes Do You Have Access To A Gun?: No Health Problems: No Mental Health Diagnoses: Yes Previous Attempt: No Previous Psychiatric Hospitalization: No Protective Factors Assessment : No Responsible for Young Children: No Employed: No Supportive Family: Yes Interval History Identifying Information 31 yo woman with history of alcohol use disorder in sustained remission, unspecified eating disorder, ADHD with possible stimulant use disorder and depression admitted medically after being brought from the [facility] where she was on a 303 commitment for psychosis due to concern for change in consciousness. Psychiatry consulted for recommendations by Dr. Caldera on 10/14/22. She was admitted to our unit from the medical floor on 10/18/22 15:10 on a 302 involuntary commitment. Chief Complaint "I'm sad." Review of Systems Sleep Information Total Hours of Sleep: 3 Sleep Comments: Patient restless and only slept for brief periods of time Meal Information Percent Meal Consumed - Breakfast: 100 Percent Meal Consumed - Lunch: 100 Percent Meal Consumed - Dinner: 100 Subjective Subjective Patient was seen & assessed and interval progress reviewed with nursing and social work. Ashley was seen several times throughout the day as she can only tolerate brief interactions. She continues to wander around the unit with short attention span, randomly swears or makes inappropriate sexual comments (particularly overnight). She is still not sleeping well. She reports less internal restlessness. She declined to participate in her 303 hearing, Room Service Waiter Irvin Alfaro was present on her behalf ([facility] resident). 303 granted. She was given a 1 time dose of Haldol 2.5 mg as other prns seem ineffective after which she slept for 1 hr with no EPS. Will try 5 mg this hs. total time spent >60 min given coordination of care, testimony at hearing, and patient's ongoing high acuity. Physical Exam Psychiatric Orientation: alert and oriented to place Apperance: + disheveled Eye Contact: + poor eye contact Affect: + blunted affect Mood: + anxious mood Thought Process: + thought process not linear or logical Thought Content: + preoccupation (leaving) and + delusions Suicidal Thoughts: denies suicidal thoughts Cognition: + attention not intact Estimated Intelligence: consistent with education level Insight: + severely impaired insight Judgment: + severely impaired judgement Vital Signs (Past 24 Hours) Last Vital Signs Temp 36.4 C L 10/21/22 06:45 Pulse 106 H 10/21/22 06:45 Resp 18 10/21/22 06:45 BP 119/82 10/21/22 06:45 Pulse Ox 98 10/18/22 15:21 O2 Del Method Room Air 10/18/22 15:21 Results & Data ([facility]) Current Inpatient Medications Current Inpatient Medications: Current Inpatient Medications Acetaminophen (Acetaminophen 325 Mg Tab) 650 mg PO Q4H PRN PRN Reason: Headache or Minor Fever Stop: 11/17/22 13:45 Last Admin: 10/20/22 22:55 Dose: 650 mg Al Hydrox/Mg Hydrox/Simethicone (Aluminum/Magnesium Susp 30 Ml Udc) 30 ml PO Q4H PRN PRN Reason: GI Upset Stop: 11/17/22 13:45 Last Admin: 10/19/22 17:56 Dose: 30 ml Bismuth Subsalicylate (Bismuth Subsalicylate Liqd 236 Ml) 15 ml PO PRN PRN PRN Reason: Loose Stool Stop: 11/17/22 13:45 Chlorpromazine HCl (Chlorpromazine Hcl 25 Mg Tab) 50 mg PO HS PRN PRN Reason: Insomnia Stop: 11/18/22 21:59 Last Admin: 10/20/22 21:01 Dose: 50 mg Clonazepam (Clonazepam 1 Mg Tab) 1 mg PO TID [facility] Stop: 11/19/22 13:59 Last Admin: 10/21/22 13:46 Dose: 1 mg Cyanocobalamin (Cyanocobalamin (B-12) 500 Mcg Tablet) 500 mcg PO QAM [facility] Stop: 11/18/22 08:59 Last Admin: 10/21/22 08:11 Dose: 500 mcg Ergocalciferol (Ergocalciferol 50,000 Units 1250 Mcg Cap) 50,000 units PO Q7D@ 0900 [facility] Stop: 11/24/22 08:59 Eszopiclone (Eszopiclone 1 Mg Tab) 3 mg PO HS [facility] Stop: 11/19/22 21:59 Last Admin: 10/20/22 21:02 Dose: 3 mg Ferrous Sulfate (Ferrous Sulfate 325 Mg Tab) [facility] Stop: 11/18/22 08:59 Last Admin: 10/21/22 08:11 Dose: 325 mg [place] [facility] Carbonate ([place] Carbonate Slow Rel 300 Mg Tab) 300 mg PO QAM [facility] Stop: 11/19/22 12:14 Last Admin: 10/21/22 08:11 Dose: 300 mg [place] [facility] Carbonate ([place] Carbonate Slow Rel 300 Mg Tab) 600 mg PO [facility] Stop: 11/19/22 21:59 Last Admin: 10/20/22 21:01 Dose: 600 mg Lorazepam (Lorazepam 2 Mg/1 Ml Vial) 2 mg IM Q6 PRN PRN Reason: Agitation Stop: 11/17/22 14:43 Lorazepam (Lorazepam 1 Mg Tab) 1 mg PO Q6 PRN PRN Reason: Anxiety/Agitation Stop: 11/17/22 14:43 Last Admin: 10/21/22 00:50 Dose: 1 mg Magnesium Hydroxide (Magnesium Hydroxide Susp 30 Ml Udc) 30 ml PO DAILY PRN PRN Reason: Constipation Stop: 11/17/22 13:45 Olanzapine (Olanzapine Zydis 10 Mg Orally Dis. Tab) 10 mg PO [facility] Stop: 11/19/22 21:59 Last Admin: 10/20/22 21:02 Dose: 10 mg Sodium Chloride (Sodium Chloride 0.65% Na Soln 45 Ml ([place])) 1 - 2 sprays NA PRN PRN PRN Reason: Nasal Dryness/Congestion Stop: 11/17/22 13:45
[2022-10-21] MEDS ORDERED: haloperidoL 0.5 MG TAB PO PRN (14:38)
[2022-10-21] MEDS ORDERED: haloperidoL 5 MG TAB PO PRN (14:39)
[2022-10-21] MEDS: ACETAMINOPHEN 325 MG TAB PO PRN (15:27)
[2022-10-21] MEDS: haloperidoL 5 MG TAB PO PRN (18:23)
[2022-10-21] MEDS: ESZOPICLONE 1 MG TAB PO SCH (20:04)
[2022-10-22] MEDS: clonazePAM 1 MG TAB PO SCH ×3 (07:42→21:58)
[2022-10-22] MEDS: FERROUS SULFATE 325 MG TAB PO SCH (07:43)
[2022-10-22] MEDS: LITHIUM CARBONATE SLOW REL 300 MG TAB PO SCH ×2 (07:43→21:58)
[2022-10-22] MEDS: CYANOCOBALAMIN (B-12) 500 MCG TABLET PO SCH (07:43)
[2022-10-22] MEDS: haloperidoL 5 MG TAB PO PRN ×2 (07:44→15:46)
--- NOTE | 2022-10-22 13:01 | Psychiatric Progress Note ---
Date of Service October 22, 2022 Impression / Recommendations Impression 31 yo female with hx of ADHD, ETOH use and eating disorder, presents after extended stay at [facility] with AMS requiring medical admission for additional work up and clearance. Patient is extremely disorganized yet also cunning wtih regards to attempted elopement and approach to males. She seems hypersexual with no filter and it seems that hypomanic symptoms may have been confused as ADHD and/or stimulant may have contributed to romel and ultimate decline. Her "akathisia" and lack of sleep are also consistent with romel and seems to have better response to benzos than higher potency antipsychotics. Family hx of mood disorder. Patient has had episodic worsening of anxiety with paranoia under times of stress. Imp: slow improvement in sleep (1) Bipolar disorder, curr episode mixed, severe, with psychotic features: Plan 10/22/22: d/c Zyprexa as ineffective. She agreed to continue hs Haldol for now with hopes to d/c when lithium therapeutic. Tolerating well. 10/21/22: 303 granted. Will shift Zyprexa earlier in case causing paradoxical activation at night and further from prn Haldol which would benefit patient at hs. Will likely titrate [place] tomorrow so as not to delay therapeutic effect and hopefully target level 1.0 for first blood draw. 10/20/22: Risks/benefits/alternatives reviewed lithium for mood stabilization. will need to further review longer term risks associated with lithium when patient more organized. Will start 300 mg lithobid in am, 600 mg pm with level on day 5. Continue Zyprexa taper. Ativan for prn use only--Klonopin 1 mg TID for now, hopefully taper more when therapeutic on lithium. 303 paperwork filed. Increase Lunesta and back up thorazine. 10/19/22: The patient was admitted to the [facility] ([facility] inpatient mental health unit) on q15 min checks (behavioral with suicide precautions) for safety. The patient will participate in group, recreational, and milieu therapies and will be offered additional individual and family sessions as clinically appropriate. MNPR due to severity of psychosis. Continue elopement precautions. Patient needs to sleep--will attempt to provide therapeutic rest this am with 1 time dose of Ambien. Patient has used Lunesta successfully in past--will check response to Ambien and formulary status in case needs trial this pm. Patient does not have rigidity, no shuffling gait or significant tremor but affect somewhat parkinsonian--shift dosing of Zyprexa to hs started yesterday Ativan seems more effective than Klonopin so will convert to Ativan 2 mg TID consider lithium trial, patient was unable to consent today Inventory Assets Strengths: intelligent, high functioning at baseline, family support Needs: improve insight into her condition, confirm outpatient providers Suicide Risk Level Suicide Risk Level: Low (q15 min observation checks) Risk Factors Assessment : Yes Do You Have Access To A Gun?: No Health Problems: No Mental Health Diagnoses: Yes Previous Attempt: No Previous Psychiatric Hospitalization: No Protective Factors Assessment : No Responsible for Young Children: No Employed: No Supportive Family: Yes Interval History Identifying Information 31 yo woman with history of alcohol use disorder in sustained remission, unspecified eating disorder, ADHD with possible stimulant use disorder and depression admitted medically after being brought from the [facility] where she was on a 303 commitment for psychosis due to concern for change in consciousness. Psychiatry consulted for recommendations by Dr. Caldera on 10/14/22. She was admitted to our unit from the medical floor on 10/18/22 15:10 on a 302 involu ntary commitment. Chief Complaint "I'd never go back to working for [employer], they don't treat people well." Review of Systems Sleep Information Total Hours of Sleep: 6.25 Sleep Comments: Patient went to bed early in evening; frequent and brief awakenings noted and redirected back to bed when she began to wander unit Meal Information Percent Meal Consumed - Breakfast: 100 Percent Meal Consumed - Lunch: 100 Percent Meal Consumed - Dinner: 75 Subjective Subjective Patient was seen & assessed and interval progress reviewed with treatment team. remains focussed on cookies and her personal belongings. Short attention span but redirectible. still unable to tolerate groups. appears flat. Better able to have a reality based conversation around places she's flown to but doesn't elaborate and hard time with open ended questions. She is "definitely" less tearful and feels that Klonopin and [place] are helpful. Slept more last night but still disrupted. denies muscle tightness. Physical Exam Psychiatric Orientation: alert and oriented to place Apperance: + disheveled Eye Contact: + poor eye contact Affect: + blunted affect Mood: + anxious mood Thought Process: + thought process not linear or logical Thought Content: + preoccupation (leaving) and + delusions Suicidal Thoughts: denies suicidal thoughts Cognition: + attention not intact Estimated Intelligence: consistent with education level Insight: + severely impaired insight Judgment: + severely impaired judgement Vital Signs (Past 24 Hours) Last Vital Signs Temp 36.8 C 10/22/22 06:42 Pulse 90 10/22/22 06:43 Resp 16 10/22/22 06:42 BP 113/77 10/22/22 06:43 Pulse Ox 98 10/18/22 15:21 O2 Del Method Room Air 10/18/22 15:21 Results & Data ([facility]) Current Inpatient Medications Current Inpatient Medications: Current Inpatient Medications Acetaminophen (Acetaminophen 325 Mg Tab) 650 mg PO Q4H PRN PRN Reason: Headache or Minor Fever Stop: 11/17/22 13:45 Last Admin: 10/21/22 15:27 Dose: 650 mg Al Hydrox/Mg Hydrox/Simethicone (Aluminum/Magnesium Susp 30 Ml Udc) 30 ml PO Q4H PRN PRN Reason: GI Upset Stop: 11/17/22 13:45 Last Admin: 10/19/22 17:56 Dose: 30 ml Bismuth Subsalicylate (Bismuth Subsalicylate Liqd 236 Ml) 15 ml PO PRN PRN PRN Reason: Loose Stool Stop: 11/17/22 13:45 Clonazepam (Clonazepam 1 Mg Tab) 1 mg PO TID [facility] Stop: 11/19/22 13:59 Last Admin: 10/22/22 07:42 Dose: 1 mg Cyanocobalamin (Cyanocobalamin (B-12) 500 Mcg Tablet) 500 mcg PO QAM [facility] Stop: 11/18/22 08:59 Last Admin: 10/22/22 07:43 Dose: 500 mcg Ergocalciferol (Ergocalciferol 50,000 Units 1250 Mcg Cap) 50,000 units PO Q7D@0900 [facility] Stop: 11/24/22 08:59 Eszopiclone (Eszopiclone 1 Mg Tab) 3 mg PO HS [facility] Stop: 11/19/22 21:59 Last Admin: 10/21/22 20:04 Dose: 3 mg Ferrous Sulfate (Ferrous Sulfate 325 Mg Tab) 325 mg PO QAM [facility] Stop: 11/18/22 08:59 Last Admin: 10/22/22 07:43 Dose: 325 mg Haloperidol (Haloperidol 5 Mg Tab) 2.5 mg PO Q8 PRN PRN Reason: Anxiety/Agitation Stop: 11/20/22 14:47 Last Admin: 10/22/22 07:44 Dose: 2.5 mg Haloperidol (Haloperidol 5 Mg Tab) 5 mg PO HS [facility] Stop: 11/21/22 21:59 [place] Carbonate ([place] Carbonate Slow Rel 300 Mg Tab) 300 mg PO QAM [facility] Stop: 11/19/22 12:14 Last Admin: 10/22/22 07:43 Dose: 300 mg [place] Carbonate ([place] Carbonate Slow Rel 300 Mg Tab) 600 mg PO HS [facility] Stop: 11/19/22 21:59 Last Admin: 10/21/22 20:04 Dose: 600 mg Lorazepam (Lorazepam 2 Mg/1 Ml Vial) 2 mg IM Q6 PRN PRN Reason: Agitation Stop: 11/17/22 14:43 Magnesium Hydroxide (Magnesium Hydroxide Susp 30 Ml Udc) 30 ml PO DAILY PRN PRN Reason: Constipation Stop: 11/17/22 13:45 Sodium Chloride (Sodium Chloride 0.65% Na Soln 45 Ml ([place])) 1 - 2 sprays NA PRN PRN PRN Reason: Nasal Dryness/Congestion Stop: 11/17/22 13:45
[2022-10-22] MEDS: ESZOPICLONE 1 MG TAB PO SCH (21:58)
[2022-10-22] MEDS ORDERED: haloperidoL 5 MG TAB PO SCH (22:00)
[2022-10-23] MEDS: CYANOCOBALAMIN (B-12) 500 MCG TABLET PO SCH (07:57)
[2022-10-23] MEDS: haloperidoL 5 MG TAB PO PRN ×2 (07:57→13:25)
[2022-10-23] MEDS: clonazePAM 1 MG TAB PO SCH ×3 (07:57→20:38)
[2022-10-23] MEDS: FERROUS SULFATE 325 MG TAB PO SCH (07:57)
[2022-10-23] MEDS: LITHIUM CARBONATE SLOW REL 300 MG TAB PO SCH ×2 (07:57→20:40)
--- NOTE | 2022-10-23 09:11 | Psychiatric Progress Note ---
Date of Service October 23, 2022 Impression / Recommendations Impression 31 yo female with hx of ADHD, ETOH use and eating disorder, presents after extended stay at [facility] with AMS requiring medical admission for additional work up and clearance. Patient is extremely disorganized yet also cunning wtih regards to attempted elopement and approach to males. She seems hypersexual with no filter and it seems that hypomanic symptoms may have been confused as ADHD and/or stimulant may have contributed to romel and ultimate decline. Her "akathisia" and lack of sleep are also consistent with romel and seems to have better response to benzos than higher potency antipsychotics. Family hx of mood disorder. Patient has had episodic worsening of anxiety with paranoia under times of stress. Imp: patient wrote a several page note with grandiose requests for other patients like unlimited guitars and $10,000 each. (1) Bipolar disorder, curr episode mixed, severe, with psychotic features: Plan 10/24/11: Patient is receiving and benefiting from regular Haldol prns and will be accepting of more standing. Particularly helpful for regulating sleep which shows romel with psychosis is resolving slowly. Haldol 2.5 mg am and 7.5 mg hs (note has already been receiving Haldol 2.5 mg po qam prn). [place] level in am. 10/22/22: d/c Zyprexa as ineffective. She agreed to continue hs Haldol for now with hopes to d/c when lithium therapeutic. Tolerating well. 10/21/22: 303 granted. Will shift Zyprexa earlier in case causing paradoxical activation at night and further from prn Haldol which would benefit patient at hs. Will likely titrate [place] tomorrow so as not to delay therapeutic effect and hopefully target level 1.0 for first blood draw. 10/20/22: Risks/benefits/alternatives reviewed lithium for mood stabilization. will need to further review longer term risks associated with lithium when patient more organized. Will start 300 mg lithobid in am, 600 mg pm with level on day 5. Continue Zyprexa taper. Ativan for prn use only--Klonopin 1 mg TID for now, hopefully taper more when therapeutic on lithium. 303 paperwork filed. Increase Lunesta and back up thorazine. 10/19/22: The patient was admitted to the [facility] (locked inpatient mental health unit) on q15 min checks (behavioral with suicide precautions) for safety. The patient will participate in group, recreational, and milieu therapies and will be offered additional individual and family sessions as clinically appropriate. MNPR due to severity of psychosis. Continue elopement precautions. Patient needs to sleep--will attempt to provide therapeutic rest this am with 1 time dose of Ambien. Patient has used Lunesta successfully in past--will check response to Ambien and formulary status in case needs trial this pm. Patient does not have rigidity, no shuffling gait or significant tremor but affect somewhat parkinsonian--shift dosing of Zyprexa to hs started yesterday Ativan seems more effective than Klonopin so will convert to Ativan 2 mg TID consider lithium trial, patient was unable to consent today Inventory Assets Strengths: intelligent, high functioning at baseline, family support Needs: improve insight into her condition, confirm outpatient providers Suicide Risk Level Suicide Risk Level: Low (q15 min observation checks) Risk Factors Assessment : Yes Do You Have Access To A Gun?: No Health Problems: No Mental Health Diagnoses: Yes Previous Attempt: No Previous Psychiatric Hospitalization: No Protective Factors Assessment : No Responsible for Young Children: No Employed: No Supportive Family: Yes Interval History Identifying Information 31 yo woman with history of alcohol use disorder in sustained remission, unspecified eating disorder, ADHD with possible stimulant use disorder and depression admitted medically after being brought from the [facility] where she was on a 303 commitment for psychosis due to concern for change in consciousness. Psychiatry consulted for recommendations by Dr. Caldera on 10/14/22. She was admitted to our unit from the medical floor on 10/18/22 15:10 on a 302 involuntary commitment. Chief Complaint "I want to go." tearful Review of Systems Sleep Information Total Hours of Sleep: 8.25 Sleep Comments: Patient went to bed early in evening; frequent and brief awakenings noted and redirected back to bed when she began to wander unit Meal Information Percent Meal Consumed - Breakfast: 100 Percent Meal Consumed - Lunch: 0 Percent Meal Consumed - Dinner: 50 Nutrition Comment: allowed to rest. meal dated, labeled and refrigerated Subjective Subjective Patient was seen & assessed and interval progress reviewed with nursing and social work. Patient currently tearful as had to be redirected away from unit door but overwhelm has been reporting improved mood. No evidence of EPS and she has been able to sit for longer periods of time. Irritability is becoming rare but remains delusional per staff--believes people in another room are talking about her. She has been accepting and benefiting from low dose haldol and has been able to sleep for more meaningful periods with hs Haldol. Family now supportive of no visitation, a decision will be made re: 10/25 in person with brother closer to the time. Physical Exam Psychiatric Orientation: alert and oriented to place Apperance: + disheveled Eye Contact: + poor eye contact Affect: + blunted affect Mood: + anxious mood Thought Process: + thought process not linear or logical Thought Content: + preoccupation (leaving) and + delusions Suicidal Thoughts: denies suicidal thoughts Cognition: + attention not intact Estimated Intelligence: consistent with education level Insight: + severely impaired insight Judgment: + severely impaired judgement Vital Signs (Past 24 Hours) Last Vital Signs Temp 36.7 C 10/23/22 06:40 Pulse 71 10/23/22 06:41 Resp 16 10/23/22 06:40 BP 117/80 10/23/22 06:41 Pulse Ox 98 10/18/22 15:21 O2 Del Method Room Air 10/18/22 15:21 Results & Data (U) Current Inpatient Medications Current Inpatient Medications: Current Inpatient Medications Acetaminophen (Acetaminophen 325 Mg Tab) 650 mg PO Q4H PRN PRN Reason: Headache or Minor Fever Stop: 11/17/22 13:45 Last Admin: 10/21/22 15:27 Dose: 650 mg Al Hydrox/Mg Hydrox/Simethicone (Aluminum/Magnesium Susp 30 Ml Udc) 30 ml PO Q4H PRN PRN Reason: GI Upset Stop: 11/17/22 13:45 Last Admin: 10/19/22 17:56 Dose: 30 ml Benztropine Mesylate (Benztropine Mesylate 1 Mg Tab) 1 mg PO Q6 PRN PRN Reason: Muscle Spasm Stop: 11/21/22 12:54 Bismuth Subsalicylate (Bismuth Subsalicylate Liqd 236 Ml) 15 ml PO PRN PRN PRN Reason: Loose Stool Stop: 11/17/22 13:45 Clonazepam (Clonazepam 1 Mg Tab) 1 mg PO TID [facility] Stop: 11/19/22 13:59 Last Admin: 10/23/22 07:57 Dose: 1 mg Cyanocobalamin (Cyanocobalamin (B-12) 500 Mcg Tablet) 500 mcg PO [facility] Stop: 11/18/22 08:59 Last Admin: 10/23/22 07:57 Dose: 500 mcg Ergocalciferol (Ergocalciferol 50,000 Units 1250 Mcg Cap) 50,000 units PO Q7D@0900 [facility] Stop: 11/24/22 08:59 Eszopiclone (Eszopiclone 1 Mg Tab) 3 mg PO [facility] Stop: 11/19/22 21:59 Last Admin: 10/22/22 21:58 Dose: 3 mg Ferrous Sulfate (Ferrous Sulfate 325 Mg Tab) 325 mg PO [facility] Stop: 11/18/22 08:59 Last Admin: 10/23/22 07:57 Dose: 325 mg Haloperidol (Haloperidol 5 Mg Tab) 2.5 mg PO Q8 PRN PRN Reason: Anxiety/Agitation Stop: 11/20/22 14:47 Last Admin: 10/23/22 07:57 Dose: 2.5 mg Haloperidol (Haloperidol 5 Mg Tab) 5 mg PO [facility] Stop: 11/21/22 21:59 Last Admin: 10/22/22 21:58 Dose: 5 mg [place] Carbonate ([place] Carbonate Slow Rel 300 Mg Tab) 300 mg PO [facility] Stop: 11/19/22 12:14 Last Admin: 10/23/22 07:57 Dose: 300 mg [place] Carbonate ([place] Carbonate Slow Rel 300 Mg Tab) 600 mg PO [facility] Stop: 11/19/22 21:59 Last Admin: 10/22/22 21:58 Dose: 600 mg Lorazepam (Lorazepam 2 Mg/1 Ml Vial) 2 mg IM Q6 PRN PRN Reason: Agitation Stop: 11/17/22 14:43 Magnesium Hydroxide (Magnesium Hydroxide Susp 30 Ml Udc) 30 ml PO DAILY PRN PRN Reason: Constipation Stop: 11/17/22 13:45 Sodium Chloride (Sodium Chloride 0.65% Na Soln 45 Ml ([place])) 1 - 2 sprays NA PRN PRN PRN Reason: Nasal Dryness/Congestion Stop: 11/17/22 13:45
[2022-10-23] MEDS ORDERED: haloperidoL 0.5 MG TAB PO PRN (12:03)
[2022-10-23] MEDS: ACETAMINOPHEN 325 MG TAB PO PRN (17:13)
[2022-10-23] MEDS: ESZOPICLONE 1 MG TAB PO SCH (20:39)
[2022-10-23] MEDS: haloperidoL 5 MG TAB PO SCH (20:39)
[2022-10-24] MEDS: LITHIUM CARBONATE SLOW REL 300 MG TAB PO SCH ×3 (08:01→21:15)
[2022-10-24] MEDS: FERROUS SULFATE 325 MG TAB PO SCH (08:01)
[2022-10-24] MEDS: clonazePAM 1 MG TAB PO SCH ×3 (08:01→21:13)
[2022-10-24] MEDS: CYANOCOBALAMIN (B-12) 500 MCG TABLET PO SCH (08:03)
[2022-10-24] MEDS ORDERED: haloperidoL 5 MG TAB PO SCH (09:00)
[2022-10-24 09:17] LABS: Creatinine Clr Calc Pharmacy 147.2 ml/min; Est GFR (African American) 144.9 ml/min
[2022-10-24] MEDS: haloperidoL 5 MG TAB PO PRN (14:08)
[2022-10-24] MEDS: BENZTROPINE MESYLATE 1 MG TAB PO PRN (14:09)
--- NOTE | 2022-10-24 14:44 | Psychiatric Progress Note ---
Date of Service October 24, 2022 Impression / Recommendations Impression 31 yo female with hx of ADHD, ETOH use and eating disorder, presents after extended stay at [facility] with AMS requiring medical admission for additional work up and clearance. Patient is extremely disorganized yet also cunning wtih regards to attempted elopement and approach to males. She seems hypersexual with no filter and it seems that hypomanic symptoms may have been confused as ADHD and/or stimulant may have contributed to romel and ultimate decline. Her "akathisia" and lack of sleep are also consistent with romel and seems to have better response to benzos than higher potency antipsychotics. Family hx of mood disorder. Patient has had episodic worsening of anxiety with paranoia under times of stress. Imp: sleeping (though still disrupted), less irritable, less hypersexual, continues to require MNPR for psychosis and poor boundaries. Elopement precautions. (1) Bipolar disorder, curr episode mixed, severe, with psychotic features: Plan 10/24/22: add afternoon dose of [place] and Haldol (already typically receiving prn midday). Monitor for EPS. 10/23/22: Patient is receiving and benefiting from regular Haldol prns and will be accepting of more standing. Particularly helpful for regulating sleep which shows romel with psychosis is resolving slowly. Haldol 2.5 mg am and 7.5 mg hs (note has already been receiving Haldol 2.5 mg po qam prn). [place] level in am. 10/22/22: d/c Zyprexa as ineffective. She agreed to continue hs Haldol for now with hopes to d/c when lithium therapeutic. Tolerating well. 10/21/22: 303 granted. Will shift Zyprexa earlier in case causing paradoxical activation at night and further from prn Haldol which would benefit patient at hs. Will likely titrate [place] tomorrow so as not to delay therapeutic effect and hopefully target level 1.0 for first blood draw. 10/20/22: Risks/benefits/alternatives reviewed lithium for mood stabilization. will need to further review longer term risks associated with lithium when patient more organized. Will start 300 mg lithobid in am, 600 mg pm with level on day 5. Continue Zyprexa taper. Ativan for prn use only--Klonopin 1 mg TID for now, hopefully taper more when therapeutic on lithium. 303 paperwork filed. Increase Lunesta and back up thorazine. 10/19/22: The patient was admitted to the [facility] ([facility] inpatient mental health unit) on q15 min checks (behavioral with suicide precautions) for safety. The patient will participate in group, recreational, and milieu therapies and will be offered additional individual and family sessions as clinically appropriate. MNPR due to severity of psychosis. Continue elopement precautions. Patient needs to sleep--will attempt to provide therapeutic rest this am with 1 time dose of Ambien. Patient has used Lunesta successfully in past--will check response to Ambien and formulary status in case needs trial this pm. Patient does not have rigidity, no shuffling gait or significant tremor but affect somewhat parkinsonian--shift dosing of Zyprexa to hs started yesterday Ativan seems more effective than Klonopin so will convert to Ativan 2 mg TID consider lithium trial, patient was unable to consent today Inventory Assets Strengths: intelligent, high functioning at baseline, family support Needs: improve insight into her condition, confirm outpatient providers Suicide Risk Level Suicide Risk Level: Low (q15 min observation checks) Risk Factors Assessment : Yes Do You Have Access To A Gun?: No Health Problems: No Mental Health Diagnoses: Yes Previous Attempt: No Previous Psychiatric Hospitalization: No Protective Factors Assessment : No Responsible for Young Children: No Employed: No Supportive Family: Yes Interval History Identifying Information 31 yo woman with history of alcohol use disorder in sustained remission, unspecified eating disorder, ADHD with possible stimulant use disorder and depression admitted medically after being brought from the [facility] where she was on a 303 commitment for psychosis due to concern for change in consciousness. Psychiatry consulted for recommendations by Dr. Caldera on 10/14/22. She was admitted to our unit from the medical floor on 10/18/22 15:10 on a 302 involuntary commitment. Chief Complaint "I need my ADHD medication, I can't read". Review of Systems Sleep Information Total Hours of Sleep: 8.5 Sleep Comments: Patient went to bed early in evening; frequent and brief awakenings noted and redirected back to bed when she began to wander unit Meal Information Percent Meal Consumed - Breakfast: 100 Percent Meal Consumed - Lunch: 100 Percent Meal Consumed - Dinner: 75 Subjective Subjective Patient was seen & assessed and interval progress reviewed with treatment team. Sleep continues to improve. Denies muscle tightness. No evidence of akathisia. Still issues with personal boundaries. Sitting in on some groups briefly but will make inappropriate comments about RONAL or celebrities. She is not snacking as much since d/c Zyprexa. She is agreeable to lithium titration but quickly loses interest in discussion. less delusional with regards to family. Believes that the news is not real. Physical Exam Psychiatric Orientation: alert and oriented to place Apperance: + disheveled Eye Contact: + poor eye contact Affect: + anxious affect and + tearful affect Mood: + anxious mood Thought Process: + thought process not linear or logical Thought Content: + preoccupation (leaving) and + delusions Suicidal Thoughts: denies suicidal thoughts Cognition: + attention not intact Estimated Intelligence: consistent with education level Insight: + severely impaired insight Judgment: + severely impaired judgement Vital Signs (Past 24 Hours) Last Vital Signs Temp 36.7 C 10/24/22 06:00 Pulse 86 10/24/22 07:10 Resp 14 10/24/22 06:00 BP 116/71 10/24/22 07:10 Pulse Ox 98 10/18/22 15:21 O2 Del Method Room Air 10/18/22 15:21 Results & Data ([facility]) Laboratory Results Laboratory Results - last 24 hr 10/24/22 10/24/22 07:56 07:56 Creatinine 0.55 L Est Cr Clr Drug Dosing 147.2 Est GFR ( Amer) 144.9 Est GFR (Non-Af Amer) 125.0 [place] 0.7 Current Inpatient Medications Current Inpatient Medications: Current Inpatient Medications Acetaminophen (Acetaminophen 325 Mg Tab) 650 mg PO Q4H PRN PRN Reason: Headache or Minor Fever Stop: 11/17/22 13:45 Last Admin: 10/23/22 17:13 Dose: 650 mg Al Hydrox/Mg Hydrox/Simethicone (Aluminum/Magnesium Susp 30 Ml Udc) 30 ml PO Q4H PRN PRN Reason: GI Upset Stop: 11/17/22 13:45 Last Admin: 10/19/22 17:56 Dose: 30 ml Benztropine Mesylate (Benztropine Mesylate 1 Mg Tab) 1 mg PO Q6 PRN PRN Reason: Muscle Spasm Stop: 11/21/22 12:54 Last Admin: 10/24/22 14:09 Dose: 1 mg Bismuth Subsalicylate (Bismuth Subsalicylate Liqd 236 Ml) 15 ml PO PRN PRN PRN Reason: Loose Stool Stop: 11/17/22 13:45 Clonazepam (Clonazepam 1 Mg Tab) 1 mg PO TID [facility] Stop: 11/19/22 13:59 Last Admin: 10/24/22 14:08 Dose: 1 mg Cyanocobalamin (Cyanocobalamin (B-12) 500 Mcg Tablet) 500 mcg PO QAM [facility] Stop: 11/18/22 08:59 Last Admin: 10/24/22 08:03 Dose: 500 mcg Ergocalciferol (Ergocalciferol 50,000 Units 1250 Mcg Cap) 50,000 units PO Q7D@0900 [facility] Stop: 11/24/22 08:59 Eszopiclone (Eszopiclone 1 Mg Tab) 3 mg PO HS [facility] Stop: 11/19/22 21:59 Last Admin: 10/23/22 20:39 Dose: 3 mg Ferrous Sulfate (Ferrous Sulfate 325 Mg Tab) 325 mg PO QAM [facility] Stop: 11/18/22 08:59 Last Admin: 10/24/22 08:01 Dose: 325 mg Haloperidol (Haloperidol 5 Mg Tab) 7.5 mg PO HS [facility] Stop: 11/22/22 21:59 Last Admin: 10/23/22 20:39 Dose: 7.5 mg Haloperidol (Haloperidol 5 Mg Tab) 2.5 mg PO Q6H PRN PRN Reason: Anxiety/Agitation Stop: 11/22/22 13:09 Last Admin: 10/24/22 14:08 Dose: 2.5 mg Haloperidol (Haloperidol 0.5 Mg Tab) 2.5 mg PO [id number] [facility] Stop: 11/23/22 14:44 [place] Carbonate ([place] Carbonate Slow Rel 300 Mg Tab) 600 mg PO HS [facility] Stop: 11/19/22 21:59 Last Admin: 10/23/22 20:40 Dose: 600 mg [place] Carbonate ([place] Carbonate Slow Rel 300 Mg Tab) 300 mg PO BIDM [facility] Stop: 11/23/22 17:44 Lorazepam (Lorazepam 2 Mg/1 Ml Vial) 2 mg IM Q6 PRN PRN Reason: Agitation Stop: 11/17/22 14:43 Magnesium Hydroxide (Magnesium Hydroxide Susp 30 Ml Udc) 30 ml PO DAILY PRN PRN Reason: Constipation Stop: 11/17/22 13:45 Sodium Chloride (Sodium Chloride 0.65% Na Soln 45 Ml ([place])) 1 - 2 sprays NA PRN PRN PRN Reason: Nasal Dryness/Congestion Stop: 11/17/22 13:45
[2022-10-24] MEDS: haloperidoL 5 MG TAB PO SCH ×2 (15:48→21:14)
[2022-10-24] MEDS: ESZOPICLONE 1 MG TAB PO SCH (21:13)
[2022-10-25] MEDS: FERROUS SULFATE 325 MG TAB PO SCH (07:52)
[2022-10-25] MEDS: haloperidoL 5 MG TAB PO SCH ×3 (07:52→20:33)
[2022-10-25] MEDS: LITHIUM CARBONATE SLOW REL 300 MG TAB PO SCH ×3 (07:53→20:33)
[2022-10-25] MEDS: CYANOCOBALAMIN (B-12) 500 MCG TABLET PO SCH (07:53)
[2022-10-25] MEDS: clonazePAM 1 MG TAB PO SCH ×3 (07:54→20:33)
--- NOTE | 2022-10-25 08:53 | Psychiatric Progress Note ---
Date of Service October 25, 2022 Impression / Recommendations Impression 31 yo female with hx of ADHD, ETOH use and eating disorder, presents after extended stay at [facility] with AMS requiring medical admission for additional work up and clearance. Diagnostically consistent with acute romel d/t BPAD though differential for unspecified psychosis includes primary psychotic disorder. MNPR for psychosis and poor boundaries. Elopement precautions. 10/25/2022: Sleeping more, though disrupted. Better able to tolerate a brief conversation this morning. No apparent side effects to medications other than subjective fatigue. Ongoing periods of paranoia, delusions, grandiosity but lessening of hypersexuality. Continue with [place] and haldol, no signs of worsening EPS, slightly more affect today including smiling when discussing her birthday. (1) Bipolar disorder, curr episode mixed, severe, with psychotic features: Plan 10/25/2022: Continue current medications and treatment plan. 10/24/22: add afternoon dose of [place] and Haldol (already typically receiving prn midday). Monitor for EPS. 10/23/22: Patient is receiving and benefiting from regular Haldol prns and will be accepting of more standing. Particularly helpful for regulating sleep which shows romel with psychosis is resolving slowly. Haldol 2.5 mg am and 7.5 mg hs (note has already been receiving Haldol 2.5 mg po qam prn). [place] level in am. 10/22/22: d/c Zyprexa as ineffective. She agreed to continue hs Haldol for now with hopes to d/c when lithium therapeutic. Tolerating well. 10/21/22: 303 granted. Will shift Zyprexa earlier in case causing paradoxical activation at night and further from prn Haldol which would benefit patient at hs. Will likely titrate [place] tomorrow so as not to delay therapeutic effect and hopefully target level 1.0 for first blood draw. 10/20/22: Risks/benefits/alternatives reviewed lithium for mood stabilization. will need to further review longer term risks associated with lithium when patient more organized. Will start 300 mg lithobid in am, 600 mg pm with level on day 5. Continue Zyprexa taper. Ativan for prn use only--Klonopin 1 mg TID for now, hopefully taper more when therapeutic on lithium. 303 paperwork filed. Increase Lunesta and back up thorazine. 10/19/22: The patient was admitted to [facility] on q15 min checks (behavioral with suicide precautions) for safety. The patient will participate in group, recreational, and milieu therapies and will be offered additional individual and family sessions as clinically appropriate. MNPR due to severity of psychosis. Continue elopement precautions. Patient needs to sleep--will attempt to provide therapeutic rest this am with 1 time dose of Ambien. Patient has used Lunesta successfully in past--will check response to Ambien and formulary status in case needs trial this pm. Patient does not have rigidity, no shuffling gait or significant tremor but affect somewhat parkinsonian--shift dosing of Zyprexa to hs started yesterday Ativan seems more effective than Klonopin so will convert to Ativan 2 mg TID consider lithium trial, patient was unable to consent today Inventory Assets Strengths: intelligent, high functioning at baseline, family support Needs: improve insight into her condition, confirm outpatient providers Suicide Risk Level Suicide Risk Level: Low (q15 min observation checks) (denies SI) Risk Factors Assessment : Yes Do You Have Access To A Gun?: No Health Problems: No Mental Health Diagnoses: Yes Previous Attempt: No Previous Psychiatric Hospitalization: No Protective Factors Assessment : No Responsible for Young Children: No Employed: No Supportive Family: Yes Interval History Identifying Information 31 yo woman with history of alcohol use disorder in sustained remission, unspecified eating disorder, ADHD with possible stimulant use disorder and depression admitted medically after being brought from the [facility] where she was on a 303 commitment for psychosis due to concern for change in consciousness. Psychiatry consulted for recommendations by Dr. Caldera on 10/14/22. She was admitted to our unit from the medical floor on 10/18/22 15:10 on a 302 involuntary commitment and then converted to 303 commitment. Chief Complaint "I think my should be involved with this". Review of Systems Sleep Information Total Hours of Sleep: 8 Sleep Comments: Meal Information Percent Meal Consumed - Breakfast: 100 Percent Meal Consumed - Lunch: 100 Percent Meal Consumed - Dinner: 50 Nutrition Comment: allowed to rest. meal dated, labeled and refrigerated Subjective Subjective Patient was seen & assessed and interval progress reviewed with treatment team nursing and social work. Continues to have paranoia that she is being filmed or live streamed intermittently asking to "cut the stream". Did sleep about 8 hours though broken throughout the night. Initially this morning declined her medications as wanted to get consent from her Phani Rueda but later agreed to take them. Tolerated brief interview and knows today is her birthday and expressed desire for her mom and sister to visit and smiled briefly when discussing this. Was able to tell me briefly about her horse. Still at times thinks she is to kenn but slightly more able to reality-test with me later in the morning. Physical Exam Psychiatric Orientation: alert and oriented to place Apperance: + disheveled Eye Contact: + fair eye contact Affect: + constricted affect Mood: + anxious mood Thought Process: + circumstantial thought process and + perseveration Thought Content: + paranoid and + delusions Suicidal Thoughts: denies suicidal thoughts Cognition: remote memory grossly intact and language grossly intact; + recent memory not intact and + attention not intact Estimated Intelligence: consistent with education level Insight: + severely impaired insight Judgment: + severely impaired judgement Vital Signs (Past 24 Hours) Last Vital Signs Temp 37.0 C 10/25/22 06:00 Pulse 89 10/25/22 06:00 Resp 18 10/25/22 06:00 BP 109/61 10/25/22 06:41 Pulse Ox 98 10/25/22 06:00 O2 Del Method Room Air 10/25/22 06:00 Results & Data ([facility]) Laboratory Results Laboratory Results - last 24 hr 10/24/22 10/24/22 07:56 07:56 Creatinine 0.55 L Est Cr Clr Drug Dosing 147.2 Est GFR ( Amer) 144.9 Est GFR (Non-Af Amer) 125.0 [place] 0.7 Current Inpatient Medications Current Inpatient Medications: Current Inpatient Medications Acetaminophen (Acetaminophen 325 Mg Tab) 650 mg PO Q4H PRN PRN Reason: Headache or Minor Fever Stop: 11/17/22 13:45 Last Admin: 10/23/22 17:13 Dose: 650 mg Al Hydrox/Mg Hydrox/Simethicone (Aluminum/Magnesium Susp 30 Ml Udc) 30 ml PO Q4H PRN PRN Reason: GI Upset Stop: 11/17/22 13:45 Last Admin: 10/19/22 17:56 Dose: 30 ml Benztropine Mesylate (Benztropine Mesylate 1 Mg Tab) 1 mg PO Q6 PRN PRN Reason: Muscle Spasm Stop: 11/21/22 12:54 Last Admin: 10/24/22 14:09 Dose: 1 mg Bismuth Subsalicylate (Bismuth Subsalicylate Liqd 236 Ml) 15 ml PO PRN PRN PRN Reason: Loose Stool Stop: 11/17/22 13:45 Clonazepam (Clonazepam 1 Mg Tab) 1 mg PO TID [facility] Stop: 11/19/22 13:59 Last Admin: 10/25/22 07:54 Dose: 1 mg Cyanocobalamin (Cyanocobalamin (B-12) 500 Mcg Tablet) 500 mcg PO QAM [facility] Stop: 11/18/22 08:59 Last Admin: 10/25/22 07:53 Dose: 500 mcg Ergocalciferol (Ergocalciferol 50,000 Units 1250 Mcg Cap) 50,000 units PO Q7D@0900 [facility] Stop: 11/24/22 08:59 Last Admin: 10/25/22 07:52 Dose: 50,000 units Eszopiclone (Eszopiclone 1 Mg Tab) 3 mg PO [facility] Stop: 11/19/22 21:59 Last Admin: 10/24/22 21:13 Dose: 3 mg Ferrous Sulfate (Ferrous Sulfate 325 Mg Tab) 325 mg PO QAM [facility] Stop: 11/18/22 08:59 Last Admin: 10/25/22 07:52 Dose: 325 mg Haloperidol (Haloperidol 5 Mg Tab) 7.5 mg PO HS [facility] Stop: 11/22/22 21:59 Last Admin: 10/24/22 21:14 Dose: 7.5 mg Haloperidol (Haloperidol 5 Mg Tab) 2.5 mg PO Q6H PRN PRN Reason: Anxiety/Agitation Stop: 11/22/22 13:09 Last Admin: 10/24/22 14:08 Dose: 2.5 mg Haloperidol (Haloperidol 5 Mg Tab) 2.5 mg PO [id number] [facility] Stop: 11/23/22 14:44 Last Admin: 10/25/22 07:52 Dose: 2.5 mg [place] Carbonate ([place] Carbonate Slow Rel 300 Mg Tab) 600 mg PO HS [facility] Stop: 11/19/22 21:59 Last Admin: 10/24/22 21:15 Dose: 600 mg [place] Carbonate ([place] Carbonate Slow Rel 300 Mg Tab) 300 mg PO BIDM [facility] Stop: 11/23/22 17:44 Last Admin: 10/25/22 07:53 Dose: 300 mg Lorazepam (Lorazepam 2 Mg/1 Ml Vial) 2 mg IM Q6 PRN PRN Reason: Agitation Stop: 11/17/22 14:43 Magnesium Hydroxide (Magnesium Hydroxide Susp 30 Ml Udc) 30 ml PO DAILY PRN PRN Reason: Constipation Stop: 11/17/22 13:45 Sodium Chloride (Sodium Chloride 0.65% Na Soln 45 Ml ([place])) 1 - 2 sprays NA PRN PRN PRN Reason: Nasal Dryness/Congestion Stop: 11/17/22 13:45
[2022-10-25] MEDS ORDERED: ERGOCALCIFEROL 50,000 UNITS 1250 MCG CAP PO SCH (09:00)
[2022-10-25] MEDS: ACETAMINOPHEN 325 MG TAB PO PRN (17:49)
[2022-10-25] MEDS: ESZOPICLONE 1 MG TAB PO SCH (20:33)
[2022-10-26] MEDS: haloperidoL 5 MG TAB PO SCH ×3 (08:31→20:40)
[2022-10-26] MEDS: clonazePAM 1 MG TAB PO SCH ×3 (08:31→20:40)
[2022-10-26] MEDS: FERROUS SULFATE 325 MG TAB PO SCH (08:31)
[2022-10-26] MEDS: CYANOCOBALAMIN (B-12) 500 MCG TABLET PO SCH (08:31)
[2022-10-26] MEDS: LITHIUM CARBONATE SLOW REL 300 MG TAB PO SCH ×3 (08:31→20:39)
[2022-10-26] MEDS: BENZTROPINE MESYLATE 1 MG TAB PO PRN (09:54)
--- NOTE | 2022-10-26 09:57 | Psychiatric Progress Note ---
Date of Service October 26, 2022 Impression / Recommendations Impression 31 yo female with hx of ADHD, ETOH use and eating disorder, presents after extended stay at [facility] with AMS requiring medical admission for additional work up and clearance. Diagnostically consistent with acute romel d/t BPAD though differential for unspecified psychosis includes primary psychotic disorder. MNPR for psychosis and poor boundaries. Elopement precautions. 10/26/2022: Again with good sleep last night, still with intermittent delusions/paranoia but did well with family visit and showed more affect when engaging with her family. Today possible EPS from haldol but responded well to cognetin dose. Will reduce HS haldol given showing signs of slight improvement and to reduce EPS possible symptom burden. (1) Bipolar disorder, curr episode mixed, severe, with psychotic features: Plan 10/26/2022: Reduce haldol to 5mg HS, continue qAM and midday doses of 2.5mg. 10/25/2022: Continue current medications and treatment plan. 10/24/22: add afternoon dose of Pantops and Haldol (already typically receiving prn midday). Monitor for EPS. 10/23/22: Patient is receiving and benefiting from regular Haldol prns and will be accepting of more standing. Particularly helpful for regulating sleep which shows romel with psychosis is resolving slowly. Haldol 2.5 mg am and 7.5 mg hs (note has already been receiving Haldol 2.5 mg po qam prn). Pantops level in am. 10/22/22: d/c Zyprexa as ineffective. She agreed to continue hs Haldol for now with hopes to d/c when lithium therapeutic. Tolerating well. 10/21/22: 303 granted. Will shift Zyprexa earlier in case causing paradoxical activation at night and further from prn Haldol which would benefit patient at hs. Will likely titrate Pantops tomorrow so as not to delay therapeutic effect and hopefully target level 1.0 for first blood draw. 10/20/22: Risks/benefits/alternatives reviewed lithium for mood stabilization. will need to further review longer term risks associated with lithium when patient more organized. Will start 300 mg lithobid in am, 600 mg pm with level on day 5. Continue Zyprexa taper. Ativan for prn use only--Klonopin 1 mg TID for now, hopefully taper more when therapeutic on lithium. 303 paperwork filed. Increase Lunesta and back up thorazine. 10/19/22: The patient was admitted to the [facility] ([facility] mental health unit) on q15 min checks (behavioral with suicide precautions) for safety. The patient will participate in group, recreational, and milieu therapies and will be offered additional individual and family sessions as clinically appropriate. MNPR due to severity of psychosis. Continue elopement precautions. Patient needs to sleep--will attempt to provide therapeutic rest this am with 1 time dose of Ambien. Patient has used Lunesta successfully in past--will check response to Ambien and formulary status in case needs trial this pm. Patient does not have rigidity, no shuffling gait or significant tremor but affect somewhat parkinsonian--shift dosing of Zyprexa to hs started yesterday Ativan seems more effective than Klonopin so will convert to Ativan 2 mg TID consider lithium trial, patient was unable to consent today Inventory Assets Strengths: intelligent, high functioning at baseline, family support Needs: improve insight into her condition, confirm outpatient providers Suicide Risk Level Suicide Risk Level: Low (q15 min observation checks) (denies SI) Risk Factors Assessment : Yes Do You Have Access To A Gun?: No Health Problems: No Mental Health Diagnoses: Yes Previous Attempt: No Previous Psychiatric Hospitalization: No Protective Factors Assessment : No Responsible for Young Children: No Employed: No Supportive Family: Yes Interval History Identifying Information 31 yo woman with history of alcohol use disorder in sustained remission, unspecified eating disorder, ADHD with possible stimulant use disorder and depression admitted medically after being brought from the [facility] where she was on a 303 commitment for psychosis due to concern for change in consciousness. Psychiatry consulted for recommendations by Dr. Caldera on 10/14/22. She was admitted to our unit from the medical floor on 10/18/22 15:10 on a 302 involuntary commitment and then converted to 303 commitment. Chief Complaint "My hand feels weird". Review of Systems Sleep Information Total Hours of Sleep: 9 Meal Information Percent Meal Consumed - Breakfast: 50 Percent Meal Consumed - Lunch: 50 Percent Meal Consumed - Dinner: 50 Nutrition Comment: Subjective Subjective Patient was seen & assessed and interval progress reviewed with treatment team nursing and social work. Slept well last night. This morning reports sense of stiffness in her right hand. No tremor. Agreed to take prn dose of cogentin with resolution of symptoms. Had a good visit with her sister and mother yesterday. Tearful in describing wish to go home soon. Participated in her first group ye sterday and again attended a group and was on topic and appropriate today. This morning still with concerns at times about being live streamed requiring reassurance. Physical Exam Psychiatric Orientation: alert and oriented x 3 Apperance: appropriately dressed and appropriately groomed Eye Contact: + fair eye contact Affect: + constricted affect Mood: + anxious mood Thought Process: + circumstantial thought process and + perseveration Thought Content: + paranoid and + delusions Suicidal Thoughts: denies suicidal thoughts Cognition: recent memory grossly intact, remote memory grossly intact, attention grossly intact and language grossly intact Estimated Intelligence: consistent with education level Insight: + limited insight Judgment: + limited judgement Vital Signs (Past 24 Hours) Last Vital Signs Temp 36.3 C L 10/26/22 06:00 Pulse 77 10/26/22 06:00 Resp 16 10/26/22 06:00 BP 106/74 10/26/22 06:48 Pulse Ox 98 10/26/22 06:00 O2 Del Method Room Air 10/26/22 06:00 Results & Data ([facility]) Current Inpatient Medications Current Inpatient Medications: Current Inpatient Medications Acetaminophen (Acetaminophen 325 Mg Tab) 650 mg PO Q4H PRN PRN Reason: Headache or Minor Fever Stop: 11/17/22 13:45 Last Admin: 10/25/22 17:49 Dose: 650 mg Al Hydrox/Mg Hydrox/Simethicone (Aluminum/Magnesium Susp 30 Ml Udc) 30 ml PO Q4H PRN PRN Reason: GI Upset Stop: 11/17/22 13:45 Last Admin: 10/19/22 17:56 Dose: 30 ml Benztropine Mesylate (Benztropine Mesylate 1 Mg Tab) 1 mg PO Q6 PRN PRN Reason: Muscle Spasm Stop: 11/21/22 12:54 Last Admin: 10/26/22 09:54 Dose: 1 mg Bismuth Subsalicylate (Bismuth Subsalicylate Liqd 236 Ml) 15 ml PO PRN PRN PRN Reason: Loose Stool Stop: 11/17/22 13:45 Clonazepam (Clonazepam 1 Mg Tab) 1 mg PO TID [facility] Stop: 11/19/22 13:59 Last Admin: 10/26/22 08:31 Dose: 1 mg Cyanocobalamin (Cyanocobalamin (B-12) 500 Mcg Tablet) 500 mcg PO QAM [facility] Stop: 11/18/22 08:59 Last Admin: 10/26/22 08:31 Dose: 500 mcg Ergocalciferol (Ergocalciferol 50,000 Units 1250 Mcg Cap) 50,000 units PO Q7D@0900 [facility] Stop: 11/24/22 08:59 Last Admin: 10/25/22 07:52 Dose: 50,000 units Eszopiclone (Eszopiclone 1 Mg Tab) 3 mg PO [facility] Stop: 11/19/22 21:59 Last Admin: 10/25/22 20:33 Dose: 3 mg Ferrous Sulfate (Ferrous Sulfate 325 Mg Tab) 325 mg PO QAM [facility] Stop: 11/18/22 08:59 Last Admin: 10/26/22 08:31 Dose: 325 mg Haloperidol (Haloperidol 5 Mg Tab) 2.5 mg PO Q6H PRN PRN Reason: Anxiety/Agitation Stop: 11/22/22 13:09 Last Admin: 10/24/22 14:08 Dose: 2.5 mg Haloperidol (Haloperidol 5 Mg Tab) 2.5 mg PO [id number] [facility] Stop: 11/23/22 14:44 Last Admin: 10/26/22 08:31 Dose: 2.5 mg Haloperidol (Haloperidol 5 Mg Tab) 5 mg PO [facility] Stop: 11/25/22 21:59 Pantops Carbonate (Pantops Carbonate Slow Rel 300 Mg Tab) 600 mg PO [facility] Stop: 11/19/22 21:59 Last Admin: 10/25/22 20:33 Dose: 600 mg Pantops Carbonate (Pantops Carbonate Slow Rel 300 Mg Tab) 300 mg PO BIDM [facility] Stop: 11/23/22 17:44 Last Admin: 10/26/22 08:31 Dose: 300 mg Lorazepam (Lorazepam 2 Mg/1 Ml Vial) 2 mg IM Q6 PRN PRN Reason: Agitation Stop: 11/17/22 14:43 Magnesium Hydroxide (Magnesium Hydroxide Susp 30 Ml Udc) 30 ml PO DAILY PRN PRN Reason: Constipation Stop: 11/17/22 13:45 Sodium Chloride (Sodium Chloride 0.65% Na Soln 45 Ml ([place])) 1 - 2 sprays NA PRN PRN PRN Reason: Nasal Dryness/Congestion Stop: 11/17/22 13:45
[2022-10-26] MEDS: ESZOPICLONE 1 MG TAB PO SCH (20:40)
[2022-10-27] MEDS: haloperidoL 5 MG TAB PO SCH ×3 (07:10→21:26)
[2022-10-27] MEDS: CYANOCOBALAMIN (B-12) 500 MCG TABLET PO SCH (08:39)
[2022-10-27] MEDS: FERROUS SULFATE 325 MG TAB PO SCH (08:39)
[2022-10-27] MEDS: clonazePAM 1 MG TAB PO SCH (08:39)
[2022-10-27] MEDS: LITHIUM CARBONATE SLOW REL 300 MG TAB PO SCH ×3 (08:39→21:26)
--- NOTE | 2022-10-27 09:00 | Psychiatric Progress Note ---
Date of Service October 27, 2022 Impression / Recommendations Impression 31 yo female with hx of ADHD, ETOH use and eating disorder, presents after extended stay at [facility] with AMS requiring medical admission for additional work up and clearance. Diagnostically consistent with acute romel d/t BPAD though differential for unspecified psychosis includes primary psychotic disorder. MNPR for psychosis and poor boundaries. Elopement precautions. 10/27/2022: Sleeping well, even with reduction in haldol dose. No observable EPS on exam but she reported some hand stiffness this morning and got relief from prn cogentin. Will start to taper Klonopin given mood starting to shows signs of better stabilization. (1) Bipolar disorder, curr episode mixed, severe, with psychotic features: Plan 10/27/2022: Reduce Klonopin to 0.5mg TID. Repeat Li level on 10/29/2022 10/26/2022: Reduce haldol to 5mg HS, continue qAM and midday doses of 2.5mg. 10/25/2022: Continue current medications and treatment plan. 10/24/22: add afternoon dose of [employer] and Haldol (already typically receiving prn midday). Monitor for EPS. 10/23/22: Patient is receiving and benefiting from regular Haldol prns and will be accepting of more standing. Particularly helpful for regulating sleep which shows romel with psychosis is resolving slowly. Haldol 2.5 mg am and 7.5 mg hs (note has already been receiving Haldol 2.5 mg po qam prn). [employer] level in am. 10/22/22: d/c Zyprexa as ineffective. She agreed to continue hs Haldol for now with hopes to d/c when lithium therapeutic. Tolerating well. 10/21/22: 303 granted. Will shift Zyprexa earlier in case causing paradoxical activation at night and further from prn Haldol which would benefit patient at hs. Will likely titrate [employer] tomorrow so as not to delay therapeutic effect and hopefully target level 1.0 for first blood draw. 10/20/22: Risks/benefits/alternatives reviewed lithium for mood stabilization. will need to further review longer term risks associated with lithium when patient more organized. Will start 300 mg lithobid in am, 600 mg pm with level on day 5. Continue Zyprexa taper. Ativan for prn use only--Klonopin 1 mg TID for now, hopefully taper more when therapeutic on lithium. 303 paperwork filed. Increase Lunesta and back up thorazine. 10/19/22: The patient was admitted to the [facility] ([facility] mental health unit) on q15 min checks (behavioral with suicide precautions) for safety. The patient will participate in group, recreational, and milieu therapies and will be offered additional individual and family sessions as clinically appropriate. MNPR due to severity of psychosis. Continue elopement precautions. Patient needs to sleep--will attempt to provide therapeutic rest this am with 1 time dose of Ambien. Patient has used Lunesta successfully in past--will check response to Ambien and formulary status in case needs trial this pm. Patient does not have rigidity, no shuffling gait or significant tremor but affect somewhat parkinsonian--shift dosing of Zyprexa to hs started yesterday Ativan seems more effective than Klonopin so will convert to Ativan 2 mg TID consider lithium trial, patient was unable to consent today Inventory Assets Strengths: intelligent, high functioning at baseline, family support Needs: improve insight into her condition, confirm outpatient providers Suicide Risk Level Suicide Risk Level: Low (q15 min observation checks) (denies SI) Risk Factors Assessment : Yes Do You Have Access To A Gun?: No Health Problems: No Mental Health Diagnoses: Yes Previous Attempt: No Previous Psychiatric Hospitalization: No Protective Factors Assessment : No Responsible for Young Children: No Employed: No Supportive Family: Yes Interval History Identifying Information 31 yo woman with history of alcohol use disorder in sustained remission, unspecified eating disorder, ADHD with possible stimulant use disorder and depression admitted medically after being brought from the [facility] where she was on a 303 commitment for psychosis due to concern for change in consciousness. Psychiatry consulted for recommendations by Dr. Caldera on 10/14/22. She was admitted to our unit from the medical floor on 10/18/22 15:10 on a 302 involuntary commitment and then converted to 303 commitment. Chief Complaint "When can I go home?". Review of Systems Sleep Information Total Hours of Sleep: 7 Meal Information Percent Meal Consumed - Breakfast: 50 Percent Meal Consumed - Lunch: 50 Percent Meal Consumed - Dinner: 75 Subjective Subjective Patient was seen & assessed and interval progress reviewed with treatment team nursing and social work. Attending more groups. At times isolative to her room. Slept fairly well last night even with lower dose of haldol. Reports some muscle stiffness this morning but improved after prn cogentin dose. Feels sedated during the day, discussed reducing Klonopin which she would like to do. Remains perseverative about wanting to be back on Vyvanse, discussed again why contraindicated given current episode of romel. No side effects from [employer]. Resistant to the idea of more intensive treatment program after discharge as her mother had identified potential about in [place]. Physical Exam Psychiatric Orientation: alert and oriented x 3 Apperance: appropriately dressed and appropriately groomed Eye Contact: + fair eye contact Affect: + constricted affect Mood: + anxious mood Thought Process: + circumstantial thought process and + perseveration Thought Content: reality based without delusions Suicidal Thoughts: denies suicidal thoughts Cognition: recent memory grossly intact, remote memory grossly intact, attention grossly intact and language grossly intact Estimated Intelligence: consistent with education level Insight: + limited insight Judgment: + limited judgement Vital Signs (Past 24 Hours) Last Vital Signs Temp 36.8 C 10/27/22 06:29 Pulse 85 10/27/22 06:29 Resp 16 10/27/22 06:29 BP 105/69 10/27/22 06:29 Pulse Ox 98 10/26/22 06:00 O2 Del Method Room Air 10/26/22 06:00 Results & Data ([facility]) Current Inpatient Medications Current Inpatient Medications: Current Inpatient Medications Acetaminophen (Acetaminophen 325 Mg Tab) 650 mg PO Q4H PRN PRN Reason: Headache or Minor Fever Stop: 11/17/22 13:45 Last Admin: 10/25/22 17:49 Dose: 650 mg Al Hydrox/Mg Hydrox/Simethicone (Aluminum/Magnesium Susp 30 Ml Udc) 30 ml PO Q4H PRN PRN Reason: GI Upset Stop: 11/17/22 13:45 Last Admin: 10/19/22 17:56 Dose: 30 ml Benztropine Mesylate (Benztropine Mesylate 1 Mg Tab) 1 mg PO Q6 PRN PRN Reason: Muscle Spasm Stop: 11/21/22 12:54 Last Admin: 10/26/22 09:54 Dose: 1 mg Bismuth Subsalicylate (Bismuth Subsalicylate Liqd 236 Ml) 15 ml PO PRN PRN PRN Reason: Loose Stool Stop: 11/17/22 13:45 Clonazepam (Clonazepam 1 Mg Tab) 1 mg PO TID [facility] Stop: 11/19/22 13:59 Last Admin: 10/27/22 08:39 Dose: 1 mg Cyanocobalamin (Cyanocobalamin (B-12) 500 Mcg Tablet) 500 mcg PO QAM [facility] Stop: 11/18/22 08:59 Last Admin: 10/27/22 08:39 Dose: 500 mcg Ergocalciferol (Ergocalciferol 50,000 Units 1250 Mcg Cap) 50,000 units PO Q7D@0900 [facility] Stop: 11/24/22 08:59 Last Admin: 10/25/22 07:52 Dose: 50,000 units Eszopiclone (Eszopiclone 1 Mg Tab) 3 mg PO [facility] Stop: 11/19/22 21:59 Last Admin: 10/26/22 20:40 Dose: 3 mg Ferrous Sulfate (Ferrous Sulfate 325 Mg Tab) 325 mg PO QAM [facility] Stop: 11/18/22 08:59 Last Admin: 10/27/22 08:39 Dose: 325 mg Haloperidol (Haloperidol 5 Mg Tab) 2.5 mg PO Q6H PRN PRN Reason: Anxiety/Agitation Stop: 11/22/22 13:09 Last Admin: 10/24/22 14:08 Dose: 2.5 mg Haloperidol (Haloperidol 5 Mg Tab) 2.5 mg PO [id number] [facility] Stop: 11/23/22 14:44 Last Admin: 10/27/22 07:10 Dose: 2.5 mg Haloperidol (Haloperidol 5 Mg Tab) 5 mg PO [facility] Stop: 11/25/22 21:59 Last Admin: 10/26/22 20:40 Dose: 5 mg [employer] Carbonate ([employer] Carbonate Slow Rel 300 Mg Tab) 600 mg PO [facility] Stop: 11/19/22 21:59 Last Admin: 10/26/22 20:39 Dose: 600 mg [employer] Carbonate ([employer] Carbonate Slow Rel 300 Mg Tab) 300 mg PO BIDM [facility] Stop: 11/23/22 17:44 Last Admin: 10/27/22 08:39 Dose: 300 mg Lorazepam (Lorazepam 2 Mg/1 Ml Vial) 2 mg IM Q6 PRN PRN Reason: Agitation Stop: 11/17/22 14:43 Magnesium Hydroxide (Magnesium Hydroxide Susp 30 Ml Udc) 30 ml PO DAILY PRN PRN Reason: Constipation Stop: 11/17/22 13:45 Sodium Chloride (Sodium Chloride 0.65% Na Soln 45 Ml ([place])) 1 - 2 sprays NA PRN PRN PRN Reason: Nasal Dryness/Congestion Stop: 11/17/22 13:45
[2022-10-27] MEDS: BENZTROPINE MESYLATE 1 MG TAB PO PRN (10:42)
[2022-10-27] MEDS: clonazePAM 0.5 MG TAB PO SCH ×2 (14:01→21:26)
[2022-10-27] MEDS: ESZOPICLONE 1 MG TAB PO SCH (21:26)
[2022-10-28] MEDS: clonazePAM 0.5 MG TAB PO SCH ×2 (08:36→21:05)
[2022-10-28] MEDS: CYANOCOBALAMIN (B-12) 500 MCG TABLET PO SCH (08:37)
[2022-10-28] MEDS: LITHIUM CARBONATE SLOW REL 300 MG TAB PO SCH ×3 (08:37→21:05)
[2022-10-28] MEDS: FERROUS SULFATE 325 MG TAB PO SCH (08:37)
[2022-10-28] MEDS: haloperidoL 5 MG TAB PO SCH ×2 (08:37→21:06)
[2022-10-28] MEDS: BENZTROPINE MESYLATE 1 MG TAB PO PRN (10:46)
--- NOTE | 2022-10-28 12:20 | Psychiatric Progress Note ---
Date of Service October 28, 2022 Impression / Recommendations Impression 31 yo female with hx of ADHD, ETOH use and eating disorder, presents after extended stay at [facility] with AMS requiring medical admission for additional work up and clearance. Diagnostically consistent with acute roeml d/t BPAD though differential for unspecified psychosis includes primary psychotic disorder. MNPR for recent psychosis, resolving romel with importance of sleep protection and history of poor boundaries. Elopement precautions. 10/28/2022: Sleeping well, mood continues to stabilize and tolerating gradual taper of sedating medications to increase likelihood of adherence with her medication regimen after discharge. Continue Klonopin and Haldol taper per her request and preference. Ongoing discussions about the importance of [place] adherence to prevent future episodes of romel and depression. Given that her mental status has improved significantly reviewed again risks/benefits of [place]. Discussed side effects including but not limited to: importance of avoiding dehydration, renal risks, thyroid risks, cardiac risks, drug interactions (NSAIDs, ACEIs, angiotensin receptor antagonists, risks, and importance of routine labwork monitoring while on [place] which she understands. (1) Bipolar disorder, curr episode mixed, severe, with psychotic features: Plan 10/28/2022: Discontinue mid-day Klonopin and haldol dose. Consolidating [place] to 600mg BID to increase outpatient adherence. 10/27/2022: Reduce Klonopin to 0.5mg TID. Repeat Li level on 10/29/2022 10/26/2022: Reduce haldol to 5mg HS, continue qAM and midday doses of 2.5mg. 10/25/2022: Continue current medications and treatment plan. 10/24/22: add afternoon dose of [place] and Haldol (already typically receiving prn midday). Monitor for EPS. 10/23/22: Patient is receiving and benefiting from regular Haldol prns and will be accepting of more standing. Particularly helpful for regulating sleep which shows romel with psychosis is resolving slowly. Haldol 2.5 mg am and 7.5 mg hs (note has already been receiving Haldol 2.5 mg po qam prn). [place] level in am. 10/22/22: d/c Zyprexa as ineffective. She agreed to continue hs Haldol for now with hopes to d/c when lithium therapeutic. Tolerating well. 10/21/22: 303 granted. Will shift Zyprexa earlier in case causing paradoxical activation at night and further from prn Haldol which would benefit patient at hs. Will likely titrate [place] tomorrow so as not to delay therapeutic effect and hopefully target level 1.0 for first blood draw. 10/20/22: Risks/benefits/alternatives reviewed lithium for mood stabilization. will need to further review longer term risks associated with lithium when patient more organized. Will start 300 mg lithobid in am, 600 mg pm with level on day 5. Continue Zyprexa taper. Ativan for prn use only--Klonopin 1 mg TID for now, hopefully taper more when therapeutic on lithium. 303 paperwork filed. Increase Lunesta and back up thorazine. 10/19/22: The patient was admitted to the [facility] ([facility] mental health unit) on q15 min checks (behavioral with suicide precautions) for safety. The patient will participate in group, recreational, and milieu therapies and will be offered additional individual and family sessions as clinically appropriate. MNPR due to severity of psychosis. Continue elopement precautions. Patient needs to sleep--will attempt to provide therapeutic rest this am with 1 time dose of Ambien. Patient has used Lunesta successfully in past--will check response to Ambien and formulary status in case needs trial this pm. Patient does not have rigidity, no shuffling gait or significant tremor but affect somewhat parkinsonian--shift dosing of Zyprexa to hs started yesterday Ativan seems more effective than Klonopin so will convert to Ativan 2 mg TID consider lithium trial, patient was unable to consent today Inventory Assets Strengths: intelligent, high functioning at baseline, family support Needs: improve insight into her condition, confirm outpatient providers Suicide Risk Level Suicide Risk Level: Low (q15 min observation checks) (denies SI) Risk Factors Assessment : Yes Do You Have Access To A Gun?: No Health Problems: No Mental Health Diagnoses: Yes Previous Attempt: No Previous Psychiatric Hospitalization: No Protective Factors Assessment : No Responsible for Young Children: No Employed: No Supportive Family: Yes Interval History Identifying Information 31 yo woman with history of alcohol use disorder in sustained remission, unspecified eating disorder, ADHD with possible stimulant use disorder and depression admitted medically after being brought from the [facility] where she was on a 303 commitment for psychosis due to concern for change in consciousness. Psychiatry consulted for recommendations by Dr. Caldera on 10/14/22. She was admitted to our unit from the medical floor on 10/18/22 15:10 on a 302 involuntary commitment and then converted to 303 commitment. Chief Complaint "I'm ok". Review of Systems Sleep Information Total Hours of Sleep: 6.5 Meal Information Percent Meal Consumed - Breakfast: 50 Percent Meal Consumed - Lunch: 0 Percent Meal Consumed - Dinner: 50 Nutrition Comment: Pt in the shower at lunch time and then napping; meal placed in the frig. for Pt. Subjective Subjective Patient was seen & assessed and interval progress reviewed with treatment team nursing and social work. Attending and participating well in groups. Slept about 7.5 hours last night. This morning having some muscle stiffness with smiling and feels like her hands are "trembly". No evidence of tremor with outstretched hands or at rest. Responded well to prn cogentin with sense of symptomatic improvement. Her room is septic tank cleaner and more organized. Tearful when discussing desire to leave the hospital, wants to get back to her life and see her horse. Remains uninterested in more intensive outpatient program or retreat as her parents had identified, wants to live in an [facility] until she finds a new apartment near [place] where her horse is. Agreeable to outpatient psychiatric provider who she could ideally see in-person as previous provider was via telemedicine. She remains eager to reduce daytime medications causing fatigue and trying to lessen dose of haldol. No side effects from lithium. Physical Exam Psychiatric Orientation: alert and oriented x 3 Apperance: appropriately dressed and appropriately groomed Eye Contact: + fair eye contact Affect: + tearful affect Mood: + anxious mood Thought Process: + circumstantial thought process and + perseveration Thought Content: reality based without delusions Suicidal Thoughts: denies suicidal thoughts Cognition: recent memory grossly intact, remote memory grossly intact, attention grossly intact and language grossly intact Estimated Intelligence: consistent with education level Insight: + limited insight Judgment: + fair judgement Vital Signs (Past 24 Hours) Last Vital Signs Temp 37 C 10/28/22 06:37 Pulse 81 10/28/22 06:38 Resp 16 10/28/22 06:37 BP 105/64 10/28/22 06:38 Pulse Ox 98 10/26/22 06:00 O2 Del Method Room Air 10/26/22 06:00 Results & Data ([facility]) Current Inpatient Medications Current Inpatient Medications: Current Inpatient Medications Acetaminophen (Acetaminophen 325 Mg Tab) 650 mg PO Q4H PRN PRN Reason: Headache or Minor Fever Stop: 11/17/22 13:45 Last Admin: 10/25/22 17:49 Dose: 650 mg Al Hydrox/Mg Hydrox/Simethicone (Aluminum/Magnesium Susp 30 Ml Udc) 30 ml PO Q4H PRN PRN Reason: GI Upset Stop: 11/17/22 13:45 Last Admin: 10/19/22 17:56 Dose: 30 ml Benztropine Mesylate (Benztropine Mesylate 1 Mg Tab) 1 mg PO Q6 PRN PRN Reason: Muscle Spasm Stop: 11/21/22 12:54 Last Admin: 10/28/22 10:46 Dose: 1 mg Bismuth Subsalicylate (Bismuth Subsalicylate Liqd 236 Ml) 15 ml PO PRN PRN PRN Reason: Loose Stool Stop: 11/17/22 13:45 Clonazepam (Clonazepam 0.5 Mg Tab) 0.5 mg PO BID [facility] Stop: 11/27/22 20:59 Cyanocobalamin (Cyanocobalamin (B-12) 500 Mcg Tablet) 500 mcg PO QAM [facility] Stop: 11/18/22 08:59 Last Admin: 10/28/22 08:37 Dose: 500 mcg Ergocalciferol (Ergocalciferol 50,000 Units 1250 Mcg Cap) 50,000 units PO Q7D@0900 [facility] Stop: 11/24/22 08:59 Last Admin: 10/25/22 07:52 Dose: 50,000 units Eszopiclone (Eszopiclone 1 Mg Tab) 3 mg PO HS [facility] Stop: 11/19/22 21:59 Last Admin: 10/27/22 21:26 Dose: 3 mg Ferrous Sulfate (Ferrous Sulfate 325 Mg Tab) 325 mg PO QAM [facility] Stop: 11/18/22 08:59 Last Admin: 10/28/22 08:37 Dose: 325 mg Haloperidol (Haloperidol 5 Mg Tab) 2.5 mg PO Q6H PRN PRN Reason: Anxiety/Agitation Stop: 11/22/22 13:09 Last Admin: 10/24/22 14:08 Dose: 2.5 mg Haloperidol (Haloperidol 5 Mg Tab) 5 mg PO HS [facility] Stop: 11/25/22 21:59 Last Admin: 10/27/22 21:26 Dose: 5 mg Haloperidol (Haloperidol 0.5 Mg Tab) 2.5 mg PO QAM [facility] Stop: 11/28/22 08:59 C[place] B[place] Carbonate (C[place] Carbonate Slow Rel 300 Mg Tab) 600 mg PO HS [facility] Stop: 11/19/22 21:59 Last Admin: 10/27/22 21:26 Dose: 600 mg [place] Carbonate ([place] Carbonate Slow Rel 300 Mg Tab) 300 mg PO BIDM [facility] Stop: 11/23/22 17:44 Last Admin: 10/28/22 08:37 Dose: 300 mg Lorazepam (Lorazepam 2 Mg/1 Ml Vial) 2 mg IM Q6 PRN PRN Reason: Agitation Stop: 11/17/22 14:43 Magnesium Hydroxide (Magnesium Hydroxide Susp 30 Ml Udc) 30 ml PO DAILY PRN PRN Reason: Constipation Stop: 11/17/22 13:45 Sodium Chloride (Sodium Chloride 0.65% Na Soln 45 Ml ([place])) 1 - 2 sprays NA PRN PRN PRN Reason: Nasal Dryness/Congestion Stop: 11/17/22 13:45
[2022-10-28] MEDS: ESZOPICLONE 1 MG TAB PO SCH (21:06)
[2022-10-29] MEDS: CYANOCOBALAMIN (B-12) 500 MCG TABLET PO SCH (08:25)
[2022-10-29] MEDS: clonazePAM 0.5 MG TAB PO SCH (08:25)
[2022-10-29] MEDS: FERROUS SULFATE 325 MG TAB PO SCH (08:25)
[2022-10-29] MEDS: LITHIUM CARBONATE SLOW REL 300 MG TAB PO SCH ×2 (08:25→21:08)
[2022-10-29] MEDS: haloperidoL 0.5 MG TAB PO SCH (08:26)
--- NOTE | 2022-10-29 13:13 | Psychiatric Progress Note ---
Date of Service October 29, 2022 Impression / Recommendations Impression 31 yo female with hx of ADHD, ETOH use and eating disorder, presents after extended stay at [facility] with AMS requiring medical admission for additional work up and clearance. Diagnostically consistent with acute romel d/t BPAD though differential for unspecified psychosis includes primary psychotic disorder. MNPR for recent psychosis, resolving romel with importance of sleep protection and history of poor boundaries. Elopement precautions. 10/29/2022: Sleeping well, mood continues to stabilize and tolerating gradual taper of sedating medications to increase likelihood of adherence with her medication regimen after discharge. [place] level tomorrow AM. (1) Bipolar disorder, curr episode mixed, severe, with psychotic features: Plan 10/29/2022: Decrease Klonopin to 0.5mg HS. [place] level tomorrow AM prior to AM dose. 10/28/2022: Discontinue mid-day Klonopin and haldol dose. Consolidating [place] to 600mg BID to increase outpatient adherence. 10/27/2022: Reduce Klonopin to 0.5mg TID. Repeat Li level on 10/29/2022 10/26/2022: Reduce haldol to 5mg HS, continue qAM and midday doses of 2.5mg. 10/25/2022: Continue current medications and treatment plan. 10/24/22: add afternoon dose of [place] and Haldol (already typically receiving prn midday). Monitor for EPS. 10/23/22: Patient is receiving and benefiting from regular Haldol prns and will be accepting of more standing. Particularly helpful for regulating sleep which shows romel with psychosis is resolving slowly. Haldol 2.5 mg am and 7.5 mg hs (note has already been receiving Haldol 2.5 mg po qam prn). [place] level in am. 10/22/22: d/c Zyprexa as ineffective. She agreed to continue hs Haldol for now with hopes to d/c when lithium therapeutic. Tolerating well. 10/21/22: 303 granted. Will shift Zyprexa earlier in case causing paradoxical activation at night and further from prn Haldol which would benefit patient at hs. Will likely titrate [place] tomorrow so as not to delay therapeutic effect and hopefully target level 1.0 for first blood draw. 10/20/22: Risks/benefits/alternatives reviewed lithium for mood stabilization. will need to further review longer term risks associated with lithium when patient more organized. Will start 300 mg lithobid in am, 600 mg pm with level on day 5. Continue Zyprexa taper. Ativan for prn use only--Klonopin 1 mg TID for now, hopefully taper more when therapeutic on lithium. 303 paperwork filed. Increase Lunesta and back up thorazine. 10/19/22: The patient was admitted to the [facility] ([facility] mental health unit) on q15 min checks (behavioral with suicide precautions) for safety. The patient will participate in group, recreational, and milieu therapies and will be offered additional individual and family sessions as clinically appropriate. MNPR due to severity of psychosis. Continue elopement precautions. Patient needs to sleep--will attempt to provide therapeutic rest this am with 1 time dose of Ambien. Patient has used Lunesta successfully in past--will check response to Ambien and formulary status in case needs trial this pm. Patient does not have rigidity, no shuffling gait or significant tremor but affect somewhat parkinsonian--shift dosing of Zyprexa to hs started yesterday Ativan seems more effective than Klonopin so will convert to Ativan 2 mg TID consider lithium trial, patient was unable to consent today Inventory Assets Strengths: intelligent, high functioning at baseline, family support Needs: improve insight into her condition, confirm outpatient providers Suicide Risk Level Suicide Risk Level: Low (q15 min observation checks) (denies SI) Risk Factors Assessment : Yes Do You Have Access To A Gun?: No Health Problems: No Mental Health Diagnoses: Yes Previous Attempt: No Previous Psychiatric Hospitalization: No Protective Factors Assessment : No Responsible for Young Children: No Employed: No Supportive Family: Yes Interval History Identifying Information 31 yo woman with history of alcohol use disorder in sustained remission, unspecified eating disorder, ADHD with possible stimulant use disorder and depression admitted medically after being brought from the [facility] where she was on a 303 commitment for psychosis due to concern for change in consciousness. Psychiatry consulted for recommendations by Dr. Caldera on 10/14/22. She was admitted to our unit from the medical floor on 10/18/22 15:10 on a 302 involuntary commitment and then converted to 303 commitment. Chief Complaint "I feel much better, whatever you're doing is helping". Review of Systems Sleep Information Total Hours of Sleep: 7 Meal Information Percent Meal Consumed - Breakfast: 100 Percent Meal Consumed - Lunch: 100 Percent Meal Consumed - Dinner: 100 Nutrition Comment: Subjective Subjective Patient was seen & assessed and interval progress reviewed with treatment team nursing and social work. Continuing to engage in groups, adding insightful comments, no evidence for paranoia/delusions/hypersexuality. No muscle stiffness today. Still slight sense of tremulousness at times, no tremor on exam. Denies any medication side effects. Feels less sedated during this day as medication reductions have occurred. Physical Exam Psychiatric Orientation: alert and oriented x 3 Apperance: appropriately dressed and appropriately groomed Eye Contact: good eye contact Affect: euthymic affect Mood: no depressed mood and no anxious mood Thought Process: linear/logical thought process Thought Content: reality based without delusions Suicidal Thoughts: denies suicidal thoughts Cognition: recent memory grossly intact, remote memory grossly intact, attention grossly intact and language grossly intact Estimated Intelligence: consistent with education level Insight: + fair insight Judgment: + fair judgement Vital Signs (Past 24 Hours) Last Vital Signs Temp 36.9 C 10/29/22 06:40 Pulse 68 10/29/22 06:43 Resp 16 10/29/22 06:40 BP 100/66 10/29/22 06:43 Pulse Ox 98 10/26/22 06:00 O2 Del Method Room Air 10/26/22 06:00 Results & Data ([facility]) Current Inpatient Medications Current Inpatient Medications: Current Inpatient Medications Acetaminophen (Acetaminophen 325 Mg Tab) 650 mg PO Q4H PRN PRN Reason: Headache or Minor Fever Stop: 11/17/22 13:45 Last Admin: 10/25/22 17:49 Dose: 650 mg Al Hydrox/Mg Hydrox/Simethicone (Aluminum/Magnesium Susp 30 Ml Udc) 30 ml PO Q4H PRN PRN Reason: GI Upset Stop: 11/17/22 13:45 Last Admin: 10/19/22 17:56 Dose: 30 ml Benztropine Mesylate (Benztropine Mesylate 1 Mg Tab) 1 mg PO Q6 PRN PRN Reason: Muscle Spasm Stop: 11/21/22 12:54 Last Admin: 10/28/22 10:46 Dose: 1 mg Bismuth Subsalicylate (Bismuth Subsalicylate Liqd 236 Ml) 15 ml PO PRN PRN PRN Reason: Loose Stool Stop: 11/17/22 13:45 Clonazepam (Clonazepam 0.5 Mg Tab) 0.5 mg PO BID [facility] Stop: 11/27/22 20:59 Last Admin: 10/29/22 08:25 Dose: 0.5 mg Cyanocobalamin (Cyanocobalamin (B-12) 500 Mcg Tablet) 500 mcg PO QAM [facility] Stop: 11/18/22 08:59 Last Admin: 10/29/22 08:25 Dose: 500 mcg Ergocalciferol (Ergocalciferol 50,000 Units 1250 Mcg Cap) 50,000 units PO Q7D@0900 [facility] Stop: 11/24/22 08:59 Last Admin: 10/25/22 07:52 Dose: 50,000 units Eszopiclone (Eszopiclone 1 Mg Tab) 3 mg PO [facility] Stop: 11/19/22 21:59 Last Admin: 10/28/22 21:06 Dose: 3 mg Ferrous Sulfate (Ferrous Sulfate 325 Mg Tab) 325 mg PO QAM [facility] Stop: 11/18/22 08:59 Last Admin: 10/29/22 08:25 Dose: 325 mg Haloperidol (Haloperidol 5 Mg Tab) 2.5 mg PO Q6H PRN PRN Reason: Anxiety/Agitation Stop: 11/22/22 13:09 Last Admin: 10/24/22 14:08 Dose: 2.5 mg Haloperidol (Haloperidol 5 Mg Tab) 5 mg PO [facility] Stop: 11/25/22 21:59 Last Admin: 10/28/22 21:06 Dose: 5 mg Haloperidol (Haloperidol 0.5 Mg Tab) 2.5 mg PO QAM [facility] Stop: 11/28/22 08:59 Last Admin: 10/29/22 08:26 Dose: 2.5 mg [place] Carbonate ([place] Carbonate Slow Rel 300 Mg Tab) 600 mg PO BID [facility] Stop: 11/27/22 20:59 Last Admin: 10/29/22 08:25 Dose: 600 mg Lorazepam (Lorazepam 2 Mg/1 Ml Vial) 2 mg IM Q6 PRN PRN Reason: Agitation Stop: 11/17/22 14:43 Magnesium Hydroxide (Magnesium Hydroxide Susp 30 Ml Udc) 30 ml PO DAILY PRN PRN Reason: Constipation Stop: 11/17/22 13:45 Sodium Chloride (Sodium Chloride 0.65% Na Soln 45 Ml ([place])) 1 - 2 sprays NA PRN PRN PRN Reason: Nasal Dryness/Congestion Stop: 11/17/22 13:45
[2022-10-29] MEDS: BENZTROPINE MESYLATE 1 MG TAB PO PRN (20:33)
[2022-10-29] MEDS: ESZOPICLONE 1 MG TAB PO SCH (21:07)
[2022-10-29] MEDS: haloperidoL 5 MG TAB PO SCH (21:07)
[2022-10-29] MEDS ORDERED: clonazePAM 0.5 MG TAB PO SCH (22:00)
[2022-10-30] MEDS: FERROUS SULFATE 325 MG TAB PO SCH (08:23)
[2022-10-30] MEDS: CYANOCOBALAMIN (B-12) 500 MCG TABLET PO SCH (08:23)
[2022-10-30] MEDS: LITHIUM CARBONATE SLOW REL 300 MG TAB PO SCH ×2 (08:25→21:01)
[2022-10-30] MEDS: haloperidoL 0.5 MG TAB PO SCH (08:26)
[2022-10-30] MEDS ORDERED: haloperidoL 5 MG TAB PO SCH ×2 (09:00)
--- NOTE | 2022-10-30 09:51 | Psychiatric Progress Note ---
Date of Service October 30, 2022 Impression / Recommendations Impression 31 yo female with hx of ADHD, ETOH use and eating disorder, presents after extended stay at [facility] with AMS requiring medical admission for additional work up and clearance. Diagnostically consistent with acute romel d/t BPAD though differential for unspecified psychosis includes primary psychotic disorder. MNPR for resolving romel with importance of sleep protection. 10/30/2022: Mood remains stable, sleeping well, tolerating medication adjustments. Will continue to taper Klonopin given history of alcohol use disorder and her preference to discontinue this prior to discharge. Will also discontinue AM haldol dose given potential EPS effects and per her preference to improve post- discharge adherence. [place] level of 1.1 within target therapeutic goal given recent episode of romel. (1) Bipolar disorder, curr episode mixed, severe, with psychotic features: Plan 10/30/2022: Discontinue Klonopin, discontinue haldol 2.5mg QAM. 10/29/2022: Decrease Klonopin to 0.5mg HS. [place] level tomorrow AM prior to AM dose. 10/28/2022: Discontinue mid-day Klonopin and haldol dose. Consolidating [place] to 600mg BID to increase outpatient adherence. 10/27/2022: Reduce Klonopin to 0.5mg TID. Repeat Li level on 10/29/2022 10/26/2022: Reduce haldol to 5mg HS, continue qAM and midday doses of 2.5mg. 10/25/2022: Continue current medications and treatment plan. 10/24/22: add afternoon dose of [place] and Haldol (already typically receiving prn midday). Monitor for EPS. 10/23/22: Patient is receiving and benefiting from regular Haldol prns and will be accepting of more standing. Particularly helpful for regulating sleep which shows romel with psychosis is resolving slowly. Haldol 2.5 mg am and 7.5 mg hs (note has already been receiving Haldol 2.5 mg po qam prn). [place] level in am. 10/22/22: d/c Zyprexa as ineffective. She agreed to continue hs Haldol for now with hopes to d/c when lithium therapeutic. Tolerating well. 10/21/22: 303 granted. Will shift Zyprexa earlier in case causing paradoxical activation at night and further from prn Haldol which would benefit patient at hs. Will likely titrate [place] tomorrow so as not to delay therapeutic effect and hopefully target level 1.0 for first blood draw. 10/20/22: Risks/benefits/alternatives reviewed lithium for mood stabilization. will need to further review longer term risks associated with lithium when patient more organized. Will start 300 mg lithobid in am, 600 mg pm with level on day 5. Continue Zyprexa taper. Ativan for prn use only--Klonopin 1 mg TID for now, hopefully taper more when therapeutic on lithium. 303 paperwork filed. Increase Lunesta and back up thorazine. 10/19/22: The patient was admitted to the [facility] ([facility]) on q15 min checks (behavioral with suicide precautions) for safety. The patient will participate in group, recreational, and milieu therapies and will be offered additional individual and family sessions as clinically appropriate. MNPR due to severity of psychosis. Continue elopement precautions. Patient needs to sleep--will attempt to provide therapeutic rest this am with 1 time dose of Ambien. Patient has used Lunesta successfully in past--will check response to Ambien and formulary status in case needs trial this pm. Patient does not have rigidity, no shuffling gait or significant tremor but affect somewhat parkinsonian--shift dosing of Zyprexa to hs started yesterday Ativan seems more effective than Klonopin so will convert to Ativan 2 mg TID consider lithium trial, patient was unable to consent today Inventory Assets Strengths: intelligent, high functioning at baseline, family support Needs: improve insight into her condition, confirm outpatient providers Suicide Risk Level Suicide Risk Level: Low (q15 min observation checks) (denies SI) Risk Factors Assessment : Yes Do You Have Access To A Gun?: No Health Problems: No Mental Health Diagnoses: Yes Previous Attempt: No Previous Psychiatric Hospitalization: No Protective Factors Assessment : No Responsible for Young Children: No Employed: No Supportive Family: Yes Interval History Identifying Information 31 yo woman with history of alcohol use disorder in sustained remission, unspecified eating disorder, ADHD with possible stimulant use disorder and depression admitted medically after being brought from the [facility] where she was on a 303 commitment for psychosis due to concern for change in consciousness. Psychiatry consulted for recommendations by Dr. Caldera on 10/14/22. She was admitted to our unit from the medical floor on 10/18/22 15:10 on a 302 involuntary commitment and then converted to 303 commitment. Chief Complaint "I'm doing pretty well". Review of Systems Sleep Information Total Hours of Sleep: 7 Meal Information Percent Meal Consumed - Breakfast: 0 Percent Meal Consumed - Lunch: 100 Percent Meal Consumed - Dinner: 75 Nutrition Comment: Subjective Subjective Patient was seen & assessed and interval progress reviewed with treatment team nursing and social work. Slept well. Participating and offering insightful comments during the groups. Attending to self-care needs. Appropriate with peers. Remains medication adherent. Very eager and hopeful for soon discharge given prolonged hospitalizations over the last two months. Reports her mood is "pretty well". Got a prn cogentin last night for restlessness and found this helpful. Continues to feel she has a slight tremor vs some "fine motor difficulty" when she tries to do her makeup, wonders about how this could impact her ability to ride her horse. Discussed ongoing effort to taper haldol and that if EPS related this should improve and that she can utlize prn cogentin. Reviewed that if fine motor tremor from [place] then it may persist but that [place] dose may be able to be lowered in the next 4-6 months if it remains problematic with goal when in period of prolonged mood stability of slightly lower [place] level. Reviewed [place] level this morning was 1.1 and precisely in goal therapeutic range given recent episode of acute romel. She likes the current medications if we can discontinue Klonopin and morning haldol and agrees to continue [place] twice daily, haldol HS and Lunesta outside the hospital. Physical Exam Psychiatric Orientation: alert and oriented x 3 Apperance: appropriately dressed and appropriately groomed Eye Contact: good eye contact Motor Behavior: n EPS and n tremor Speech: normal rate/rhythm/volume of speech Affect: euthymic affect Mood: no depressed mood and no anxious mood Thought Process: goal directed thought process Thought Content: reality based without delusions Suicidal Thoughts: denies suicidal thoughts Homicidal Thoughts: denies homicidal thoughts Hallucinations: no auditory hallucinations and no visual hallucinations Cognition: recent memory grossly intact, remote memory grossly intact, attention grossly intact and language grossly intact Estimated Intelligence: consistent with education level Insight: + fair insight Judgment: + fair judgement Vital Signs (Past 24 Hours) Last Vital Signs Temp 36.8 C 10/30/22 06:00 Pulse 71 10/30/22 06:00 Resp 16 10/30/22 06:00 BP 103/61 10/30/22 06:51 Pulse Ox 99 10/30/22 06:00 O2 Del Method Room Air 10/30/22 06:00 Results & Data ([facility]) Laboratory Results Laboratory Results - last 24 hr 10/30/22 07:48 [place] 1.1 Current Inpatient Medications Current Inpatient Medications: Current Inpatient Medications Acetaminophen (Acetaminophen 325 Mg Tab) 650 mg PO Q4H PRN PRN Reason: Headache or Minor Fever Stop: 11/17/22 13:45 Last Admin: 10/25/22 17:49 Dose: 650 mg Al Hydrox/Mg Hydrox/Simethicone (Aluminum/Magnesium Susp 30 Ml Udc) 30 ml PO Q4H PRN PRN Reason: GI Upset Stop: 11/17/22 13:45 Last Admin: 10/19/22 17:56 Dose: 30 ml Benztropine Mesylate (Benztropine Mesylate 1 Mg Tab) 1 mg PO Q6 PRN PRN Reason: Muscle Spasm Stop: 11/21/22 12:54 Last Admin: 10/29/22 20:33 Dose: 1 mg Bismuth Subsalicylate (Bismuth Subsalicylate Liqd 236 Ml) 15 ml PO PRN PRN PRN Reason: Loose Stool Stop: 11/17/22 13:45 Clonazepam (Clonazepam 0.5 Mg Tab) 0.5 mg PO [facility] Stop: 11/28/22 21:59 Last Admin: 10/29/22 21:07 Dose: 0.5 mg Cyanocobalamin (Cyanocobalamin (B-12) 500 Mcg Tablet) 500 mcg PO QAM [facility] Stop: 11/18/22 08:59 Last Admin: 10/30/22 08:23 Dose: 500 mcg Ergocalciferol (Ergocalciferol 50,000 Units 1250 Mcg Cap) 50,000 units PO Q7D@0900 [facility] Stop: 11/24/22 08:59 Last Admin: 10/25/22 07:52 Dose: 50,000 units Eszopiclone (Eszopiclone 1 Mg Tab) 3 mg PO HS [facility] Stop: 11/19/22 21:59 Last Admin: 10/29/22 21:07 Dose: 3 mg Ferrous Sulfate (Ferrous Sulfate 325 Mg Tab) 325 mg PO QAM JANEEN Stop: 11/18/22 08:59 Last Admin: 10/30/22 08:23 Dose: 325 mg Haloperidol (Haloperidol 5 Mg Tab) 2.5 mg PO Q6H PRN PRN Reason: Anxiety/Agitation Stop: 11/22/22 13:09 Last Admin: 10/24/22 14:08 Dose: 2.5 mg Haloperidol (Haloperidol 5 Mg Tab) 5 mg PO HS JANEEN Stop: 11/25/22 21:59 Last Admin: 10/29/22 21:07 Dose: 5 mg Haloperidol (Haloperidol 5 Mg Tab) 2.5 mg PO QAM JANEEN Stop: 11/29/22 08:59 Last Admin: 10/30/22 08:48 Dose: Not Given [place] Carbonate ([place] Carbonate Slow Rel 300 Mg Tab) 600 mg PO BID JANEEN Stop: 11/27/22 20:59 Last Admin: 10/30/22 08:25 Dose: 600 mg Lorazepam (Lorazepam 2 Mg/1 Ml Vial) 2 mg IM Q6 PRN PRN Reason: Agitation Stop: 11/17/22 14:43 Magnesium Hydroxide (Magnesium Hydroxide Susp 30 Ml Udc) 30 ml PO DAILY PRN PRN Reason: Constipation Stop: 11/17/22 13:45 Sodium Chloride (Sodium Chloride 0.65% Na Soln 45 Ml ([place])) 1 - 2 sprays NA PRN PRN PRN Reason: Nasal Dryness/Congestion Stop: 11/17/22 13:45 Mental Health & Subst Abuse Tx Psychiatrist Name of Psychiatrist: [facility] FILI Perdue Psychiatrist's Date Of Appointment With Psychiatric Provider: 12/10/22 Time of Appointment with Psychiatrist: 10:00 AM Psychiatric Appointment Comment: [address], [address], [place] [address] Therapist Name of Therapist: Appdra Carlota Ely PsyD Therapist's Date of Therapist Appointment: 11/13/22 Time of Therapist Appointment: 1:30 PM Therapy Appointment Comment: [address], [address], [place] [address] Post Discharge Appointments Primary Care Physician Name Of Family Doctor/PCP: Gerhard - tameka Perez PA-C Primary Care Date of Future Appointment with PCP: 11/03/2022 Time of Appointment with PCP: 11:45 PM arrival time Provider Appointment Comment: [address] [place], [place] [address] [address] Partial or Psych Rehab Name of Partial or Psych Rehab: [facility] - Partial Hospitalization Phone Number of Partial or Psych Rehab: [phone] Time of Appointment at Partial or Psych Rehab: You have been placed on the waitlist; they will call you directly. Partial or Psych Rehab Appointment Comment: [address] [facility], [place] [address]
[2022-10-30] MEDS: haloperidoL 5 MG TAB PO SCH (21:01)
[2022-10-30] MEDS: ESZOPICLONE 1 MG TAB PO SCH (21:02)
[2022-10-31] MEDS: LITHIUM CARBONATE SLOW REL 300 MG TAB PO SCH (08:52)
[2022-10-31] MEDS: FERROUS SULFATE 325 MG TAB PO SCH (08:52)
[2022-10-31] MEDS: CYANOCOBALAMIN (B-12) 500 MCG TABLET PO SCH (08:52)
--- NOTE | 2022-10-31 09:32 | Discharge Summary ---
Date of Service October 31, 2022 History of Present Illness As per 10/18/2022 progress note: Patient was seen & assessed and interval progress reviewed with nursing and 1-on-1. Patient slept a little better overnight and is more redirectible today. She remains paranoid re: her father. Tearful, lacks insight into need for inpatient care. Wants to walk in hallway but not aggressive or attempting to elope. Initial consult and records from [facility] reviewed: Patient was in [facility] and admit from ED there to [facility] on 09/17 for delusions that father is Reny and that she is to [facility]. Hx of stimulant meds (Adderall XR up to 40 mg for some time but last rx Vyvanse 40 mg daily in july). Patient was started on Effexor XR and trazodone, loaded with Keppra, and rapidly titrated to 8 mg Risperdal at the [facility] with increase in EPS, especially following increase and additional prns (Haldol). Has been clearly slowly on Klonopin and Zyprexa. Since arriving to the unit she remains restless and delusion. A staff member was injured closing the unit door as she attempted to elope unexpectedly. She slept 2.5 hrs (broken). She asked to "make out" with male staff. Talks about having sex with [place]de. Other delusional content included comments about killing parents. She wandered in to group but was only quiet for a brief period then got up and danced. Physical Exam Vital Signs (Past 24 Hours) Last Vital Signs Temp 36.9 C 10/31/22 06:29 Pulse 85 10/31/22 06:32 Resp 16 10/31/22 06:29 BP 118/76 10/31/22 06:32 Pulse Ox 99 10/30/22 06:00 O2 Del Method Room Air 10/30/22 06:00 See admission H&P and DOD summary. Principal Diagnosis Bipolar Affective Disorder, episode of romel Psychiatric Data See daily stay summary. Ashley was hospitalized on a 302 commitment which was then extended to a 303 commitment. She initially presented with multiple signs of acute romel including restlessness with psychomotor agitation, hypersexual comments, grandiose delusions about being to celebrities, paranoid delusions with concerns that she was being recorded or live streamed online, very poor sleep and initially also with concerns for possible catatonia component as she responded well to scheduled Klonopin in addition to use of [place] and antipsychotic medication. As her sleep improved she showed mood stabilization, no further delusions or inappropriate comments, her behavior became organized, she was pleasant with interactions, tolerated longer daily assessments and began to insightfully participate in groups. She tolerated multiple in-person visits with her mother and sister and actively engaged in aftercare planning. She experienced some periods of sense of muscle stiffness and tremulousness which improved with Cogentin and resolved as the dose of haldol was tapered. Over the days leading up to discharge she was engaged with the social/therapeutic milieu of the unit, safety was maintained and she was cooperative with care. Her discharge at time of diagnosis was felt to be most consistent with Bipolar Affective Disorder with resolved episode of romel. Medication changes included initiation and titration of [place] Carbonate 600mg BID, haldol 5mg HS and Lunesta 3mg HS for BPAD as well as Cogentin 1mg BID prn for muscle stiffness and they tolerated this well. She was provided with a 45 day supply of her medications so that she would not run out of medication before her first outpatient psychiatry appointment on December 10. Baseline labs of thyroid function, kidney function, weight, electrolytes, CBC, and UA were preformed and within normal limits. [place] level at discharge was 1.1 mmol/L. Recommend repeat lithium level, thyroid function and kidney function labwork at 6 months and then annually or anytime symptoms arise. Ashley was educated on and expressed understanding of the risks of dehydration, renal, thyroid, cardiac, drug interactions (NSAIDs, ACEIs, angiotensin receptor antagonists) and risks. A family session was held and safety plan was completed prior to discharge. On the day of discharge she stated her mood was "excited and anxious" and remained future-oriented including leaving the hospital, being with her family, seeing her horse and engaging in aftercare appointments for psychiatry and therapy. Day of Discharge Assessment Today the patient voices readiness for discharge. They note improvement in mood and anxiety. They deny thoughts of harm to self or others. Thoughts are organized and they are clinically improved from admission. There is no evidence of psychosis. They improved in the hospital with support and medication adjustments. They agree to take medications as prescribed and keep follow-up appointments. At the time of the discharge they are deemed to be stable and appropriate for outpatient level of care. They are not deemed to be at imminent risk of harm to self or others. They are aware of emergency and crisis services. Knows to call 911 or go to nearest emergency care center if in a crisis which cannot be handled as an outpatient. Transition of Care Transition Of Care Record: was reviewed with the patient Advance Directives Advance Directives Information Provided: Yes Advance Directives: No Mental Health Advance Directive: No Advance Directives on File: No Living Will: No Power of Workforce Advisor: No Advance Directives Reason:: Declines as Mental Health Visit. Suicide Risk Level Suicide Risk Level Comments: Ashley consistently denied SI throughout her stay. Acute risk is low given stabilization in mood and denial of SI, lack of access to lethal means, plan to avoid substance use, improvement in sleep, hopefulness and improvement in psychosis. Chronic risk is low given few non-modifiable risk factors: psychiatric co-morbid diagnoses, mood disorder but also with protective factors including: good social support, sense of responsibility to family and social supports, outpatient care in place, positive coping skills, positive problem solving, capacity to establish therapeutic alliance, willingness to engage with treatment and capacity for self-observation. Counseled on ways to reduce acute and chronic risk including engaging with outpatient providers, using safety plan if needed, utilizing supports, taking medication, and using coping skills. Modifiable risk factors of romel and psychosis were addressed during hospitalization through development of new coping skills, family meeting, safety planning, and medication adjustments. Risk Factors Assessment Male: No : Yes Do You Have Access To A Gun?: No Health Problems: No Mental Health Diagnoses: Yes Substance Use Disorders: No Previous Attempt: No Family History of Suicide: No Previous Psychiatric Hospitalization: No Hopelessness: No Protective Factors Assessment : No Responsible for Young Children: No Employed: No Stable Relationships: Yes Supportive Family: Yes Discharge Data Lab Results 10/24/22 10/24/22 10/30/22 07:56 07:56 07:48 Creatinine 0.55 L Est Cr Clr Drug Dosing 147.2 Est GFR ( Amer) 144.9 Est GFR (Non-Af Amer) 125.0 [place] 0.7 1.1 Hospital Course (1) Bipolar disorder, curr episode mixed, severe, with psychotic features: (2) Bipolar affective disorder in remission: Plan 10/30/2022: Discontinue Klonopin, discontinue haldol 2.5mg QAM. 10/29/2022: Decrease Klonopin to 0.5mg HS. [place] level tomorrow AM prior to AM dose. 10/28/2022: Discontinue mid-day Klonopin and haldol dose. Consolidating [place] to 600mg BID to increase outpatient adherence. 10/27/2022: Reduce Klonopin to 0.5mg TID. Repeat Li level on 10/29/2022 10/26/2022: Reduce haldol to 5mg HS, continue qAM and midday doses of 2.5mg. 10/25/2022: Continue current medications and treatment plan. 10/24/22: add afternoon dose of [place] and Haldol (already typically receiving prn midday). Monitor for EPS. 10/23/22: Patient is receiving and benefiting from regular Haldol prns and will be accepting of more standing. Particularly helpful for regulating sleep which shows romel with psychosis is resolving slowly. Haldol 2.5 mg am and 7.5 mg hs (note has already been receiving Haldol 2.5 mg po qam prn). [place] level in am. 10/22/22: d/c Zyprexa as ineffective. She agreed to continue hs Haldol for now with hopes to d/c when lithium therapeutic. Tolerating well. 10/21/22: 303 granted. Will shift Zyprexa earlier in case causing paradoxical activation at night and further from prn Haldol which would benefit patient at hs. Will likely titrate [place] tomorrow so as not to delay therapeutic effect and hopefully target level 1.0 for first blood draw. 10/20/22: Risks/benefits/alternatives reviewed lithium for mood stabilization. will need to further review longer term risks associated with lithium when patient more organized. Will start 300 mg lithobid in am, 600 mg pm with level on day 5. Continue Zyprexa taper. Ativan for prn use only--Klonopin 1 mg TID for now, hopefully taper more when therapeutic on lithium. 303 paperwork filed. Increase Lunesta and back up thorazine. 10/19/22: The patient was admitted to the [facility] ([facility] mental [facility] unit) on q15 min checks (behavioral with suicide precautions) for safety. The patient will participate in group, recreational, and milieu therapies and will be offered additional individual and family sessions as clinically appropriate. MNPR due to severity of psychosis. Continue elopement precautions. Patient needs to sleep--will attempt to provide therapeutic rest this am with 1 time dose of Ambien. Patient has used Lunesta successfully in past--will check response to Ambien and formulary status in case needs trial this pm. Patient does not have rigidity, no shuffling gait or significant tremor but affect somewhat parkinsonian--shift dosing of Zyprexa to hs started yesterday Ativan seems more effective than Klonopin so will convert to Ativan 2 mg TID consider lithium trial, patient was unable to consent today Mental Health & Subst Abuse Tx Psychiatrist Name of Psychiatrist: Kalistick FILI Perdue Psychiatrist's Date Of Appointment With Psychiatric Provider: 12/10/22 Time of Appointment with Psychiatrist: 10:00 AM Psychiatric Appointment Comment: [address], [address], [place] [address] Therapist Name of Therapist: Kalistick Obinna Ely PsyD Therapist's Date of Therapist Appointment: 11/13/22 Time of Therapist Appointment: 1:30 PM Therapy Appointment Comment: [address], [address], [place] [address] Post Discharge Appointments Primary Care Physician Name Of Family Doctor/PCP: Gerhard Perez PA-C Primary Care Date of Future Appointment with PCP: 11/03/2022 Time of Appointment with PCP: 11:45 PM arrival time Provider Appointment Comment: [address] [place] [id number] Partial or Psych Rehab Name of Partial or Psych Rehab: [facility] - Partial Hospitalization Phone Number of Partial or Psych Rehab: [phone] Time of Appointment at Partial or Psych Rehab: You have been placed on the waitlist; they will call you directly. Partial or Psych Rehab Appointment Comment: [address], [place] [address] Discharge Plan Discharge Items Patient Disposition: Home - Self-Care Reason For Visit: unspecified psychosis Discharge Diagnosis: Bipolar Affective Disorder, acute romel Activity: Resume your previous activity Non-emergency contact: Primary Care Provider, Psychiatrist and Therapist Call non-emergency contact if: you have any medication questions and your symptoms worsen Follow-up/Referrals: Elliot Silva [Non-Staff] - Diet: Regular Addtl Attending Provider Instructions: SPECIAL CARE INSTRUCTIONS: 1. Follow through with your scheduled aftercare appointments. If unable to keep an appointment, please call to reschedule. 2. Take your medication only as prescribed. Medication should not be changed or stopped without the approval of your doctor. In the event of worsening symptoms or concerns about side effects, contact your doctor immediately. 3. Utilize new healthy coping skills, anger management skills, and stress management skills learned during your hospitalization. Journal feelings and process them with a support person. Identify stressors or situations that may result in relapse, deterioration or inappropriate behaviors and develop a plan to deal with those issues. 4. If your coping skills are ineffective and you are in crisis, contact your outpatient providers for direction. If unable to reach your providers, please call the [facility] CRISIS LINE AT , go to the [facility] walk-in center at [address], [place], or go to the closest Emergency Room. 5. Avoid alcohol and un-prescribed drugs. 6. You have been provided with the Mental Health Advance Directives Pamphlet for your review. 7. Your condition is stable for discharge to outpatient level of care, but recovery is an ongoing process. Ifthoughts to harm yourself or others return, follow the safety plan developed during your stay. Planning for a safe return home includes securing weapons. Our treatment team recommends weaponsbe removed from the home until your outpatient provider reassesses your progress. In rare cases where the items themselvescannot be removed, guns and ammunitionshould be secured separatelyand keys stored by a reliable personoutside of the home. If you were admitted on an involuntary commitment, the police or other legal authorities may be involved in this process. AFTERCARE APPOINTMENTS: * Please call your insurance company prior to your scheduled appointment to confirm your aftercare providers are covered. Take your insurance information to your appointments. WHO TO CALL AND WHEN: Medical Emergencies: For questions or emergencies related to your hospital stay, please contact the Inpatient Behavioral Health Unit at [phone]. A web marketing strategist is on-call 19/01 for the Behavioral Health Unit for emergencies National Crisis and Suicide Hotline: 180 At any time you feel your situation is an emergency, you may also call 911 immediately. Pending Studies at Discharge: No Stand-Alone Forms: My [facility] Medications and DC Order Prescriptions: New ferrous sulfate 325 mg (65 mg iron) Tablet,Delayed Release (Dr/Ec) 325 mg PO QAM Qty: 1 0RF benztropine 1 mg Tablet 1 mg PO BID PRN (Reason: muscle stiffness) 45 Days Qty: 90 0RF eszopiclone 3 mg tablet 3 mg PO HS 30 Days Qty: 30 1RF haloperidol 5 mg Tablet 5 mg PO HS 45 Days Qty: 45 0RF lithium carbonate 300 mg Tablet Extended Release 600 mg PO BID 45 Days Qty: 180 0RF cyanocobalamin (vitamin B-12) 500 mcg Tablet 500 mcg PO QAM Qty: 1 0RF ergocalciferol (vitamin D2) 1,250 mcg (50,000 unit) Capsule 50,000 unit PO Q7D@0900 Qty: 1 0RF Discharge Orders: Discharge Order (Routine); Ordered 10/31/22 Ordered By: Meri Caldera Admission Data Admit Date/Time: 10/18/22 15:10 Attending Provider: Meri Caldera Admit Provider: Neela Tolliver Primary Care Provider: PCP,NO Other Interventions: Discharge Summary Assessment (RN) Last Done: 10/31/22 12:00 PSY Interdisciplinary Discharge Planning Last Done: 10/31/22 12:50 Coding Level of Care Code 59227 D/C day mgmt > 30 min Diagnoses Bipolar disorder, curr episode mixed, severe, with psychotic features F31.64 Bipolar affective disorder in remission F31.70 Time Spent (min) 55
[2022-10-31] MEDS ORDERED: DESTROY THIS MEDICATION ONE (09:50)
== END 2022-10-31 13:03 | disposition home or self-care (01) | DRG 885 ==
LOC: 3S 15:10 → SUATTDRO 15:10 → 3S 10-19 09:54